=== PATIENT | female | born 1975 | race Caucasian/White ===

== ENCOUNTER → 2018-01-06 08:59 | Outpatient (CLI) | payer OTHER, SELFPAY ==
--- NOTE | 2018-01-06 09:05 | US_ITS ---
STUDY: ULTRASOUND BREAST - RIGHT REASON FOR EXAM: Female, 42 years old. Six-week history of a right breast lump. TECHNIQUE: Axial and longitudinal images of the RIGHT breast were performed with a high resolution ultrasound transducer. COMPARISON: Comparison is made with prior mammogram done earlier in the day. FINDINGS: RIGHT Breast: There is a 1.3 cm x 0.9 cm x 0.5 cm well defined hypoechoic solid nodule at the 4:00 position of the breast at 3 cm from the nipple. This most likely represents a fibroadenoma. Tissue diagnosis is recommended. US/Breast Limited Unilateral IMPRESSION: 1.3 cm x 0.9 cm x 0.5 cm well-defined hypoechoic solid nodule at the 4:00 position of the breast at 3 cm from the nipple. This most likely represents a fibroadenoma. Tissue diagnosis is recommended. ASSESSMENT CATEGORY: BIRADS Category 4: Suspicious - Biopsy Should Be Considered. A letter regarding these results will be sent to the patient by the facility within 30 days. Electronically Signed: Dwight Hendrix MD at 10:41 EDT Tel [phone], Service support ,
--- NOTE | 2018-01-06 09:05 | BI_ITS ---
MAMMOGRAPHY - BILATERAL DIAGNOSTIC REASON FOR EXAM: Female, 42 years old. Six-week history of right breast lump. History of bilateral breast reduction surgery. PERTINENT HISTORY: Non-contributory. TECHNIQUE: Digital bilateral breast malcom (3D mammographic acquisition) in the CC and MLO projections. 2-D mediolateral oblique (MLO) and craniocaudad (CC) views of both breasts were obtained. CAD: Full Field Digital Mammography with Computer Added Detection was performed. COMPARISON: No comparison mammograms available at this time. If any prior films become available, an addendum to this report can be generated. FINDINGS: Breast Composition: There are scattered areas of fibroglandular density. There are no dominant masses or suspicious calcifications. Small benign-appearing bilateral axillary lymph nodes. No other significant abnormalities are identified. BI/DIAG MAMM W/CAD, BILAT IMPRESSION: With the patient's history of a palpable abnormality in the inferior medial aspect of the right breast, correlation with ultrasound is recommended. ASSESSMENT CATEGORY: BIRADS Category 0: Incomplete. Need additional imaging evaluation. A letter regarding these results will be sent to the patient by the facility within 30 days. Approximately 10% of breast cancers are not detected by mammography. A normal mammogram should not delay biopsy of a clinically suspicious abnormality. Electronically Signed: Dwight Hendrix MD at 13:10 EDT Tel [phone], Service support ,
== END ==
PROVIDERS: Visit Provider Obstetrics & Gynecology
DX: N63.10 Unspecified lump in the right breast, unspecified quadrant (principal)
CPT/HCPCS: 76642; 77062; 77066; G0279

== ENCOUNTER → 2018-01-11 14:05 | Outpatient (CLI) | payer OTHER, SELFPAY ==
--- NOTE | 2018-01-11 14:11 | US_ITS ---
STUDY: ULTRASOUND OF THE FEMALE PELVIS - COMPLETE REASON FOR EXAM: Female, 42 years old. Bleeding LMP: 12/23/2017 TECHNIQUE: Transabdominal TECHNICAL QUALITY: Adequate. COMPARISON: None. FINDINGS: The uterus is anteverted and is in a midline position. The uterus measures 12.7 cm. Normal uterine cervix. The endometrium measures 4 mm in thickness, and is hyperechoic. There is no demonstrated endometrial mass. There is no demonstrated myometrial mass. I.U.D. - The patient does not have an I.U.D. The right ovary is visualized. The right ovary measures 2.3 x 1.5 x 1.4 cm. There is no right ovarian cyst or ovarian mass. There is no visualized right adnexal mass or complex lesion. There is normal arterial and normal venous vascularity. The left ovary is visualized. The left ovary measures 3.7 x 2.0 x 1.7 cm. There is no left ovarian cyst or ovarian mass. There is no visualized left adnexal mass or complex lesion. There is normal arterial and normal venous vascularity. There is no fluid in the cul-de-sac. The bladder is sonographically normal US/Pelvic (Non ) IMPRESSION: Normal female pelvis. Electronically Signed: Asif Olvera MD at 15:19 EDT , Service support ,
[2018-01-11 18:46] VITALS: BMI 33.7
== END ==
PROVIDERS: Visit Provider Obstetrics & Gynecology
DX: N93.9 Abnormal uterine and vaginal bleeding, unspecified (principal)
CPT/HCPCS: 76856

== ENCOUNTER 2018-01-11 15:38 | Observation (INO) | payer OTHER, SELFPAY ==
[2018-01-11] VITALS (15 sets, daily range): BP systolic 122–198; BP diastolic 60–103; PULSE 112–141; RESP 16–24; TEMP 36.4–37.2; O2SAT 93–100; BMI 31.4; BMI 33.4
--- NOTE | 2018-01-11 15:57 | EKG12_ITS ---
Test Reason : PALPITATIONS Blood Pressure : / mmHG Vent. Rate : 124 BPM Atrial Rate : 124 BPM P-R Int : 120 ms QRS Dur : 080 ms QT Int : 326 ms P-R-T Axes : 064 025 039 degrees QTc Int : 468 ms Sinus tachycardia Nonspecific ST abnormality Abnormal ECG Confirmed by ESTEFANIA COVINGTON, BOY ([id number]), multimedia editor ENA MARCUS ([id number]) on 01/13/2018 2:15:04 PM Referred By: SHARONDA Confirmed By:BOY MAC MD
--- NOTE | 2018-01-11 15:58 | ED.VISSUMM ---
- ER Visit Summary Date of Service: 01/11/18 Chief Complaint: Elevated heart rate and shortness of breath History of Present Illness: The patient is a [address] Cobos at [facility] She reports that her heart rate is usually 98. States that has been elevated for the past 2 weeks. Today it has been 108, 115, 138. She reports that she has had constant chest pain for the past few weeks. It is a waxing and waning pain. She describes it as throbbing. Is 5 out of 10 currently and 9 out of 10 at worst. It is not worsened by exertion. She also complains of moderate shortness of breath at rest and severe shortness of breath with exertion. Patient and family drove the [place] December 23. She has no personal history of DVT. She does have a family history of DVT. Physical Examination: Vitals: Stable. Afebrile. General: Well-nourished and well-developed. Head: Normocephalic atraumatic. Neck: Supple, no lymphadenopathy. No JVD. Nontender. Cardiovascular: Tachycardic regular rhythm with 2 out of 6 systolic murmur. Respiratory: No respiratory distress. Clear to auscultation bilaterally. Abdominal: Soft, nontender, nondistended, normal bowel sounds. No guarding, rebound, or peritoneal signs. Back: Nontender. Extremities: Nontender, no edema. Skin: Normal color, no rash. Neurologic: Alert and oriented ?3. Cranial nerves II through XII are intact. Normal strength and sensation. Psych: Normal affect. Test Results: EKG is sinus tachycardia [address] changes. She has minimal ST depression inferiorly and leads V3 to V6. There is no old EKG for comparison. CBC is marked for a hematocrit of 19.0. Chem-7 is more for glucose 270, calcium 8.4, creatinine 1.08. D-dimer is negative. test negative. TSH 1.49. Troponin is negative. Emergency Department Course and Treatment: Patient had an IV placed. She is given a liter normal saline. She was given morphine and Zofran IV. She is resting comfortably. Patient was typed and crossed for 4 units of packed red blood cells. When patient's labs returned I spoke with her again about the possibility of bleeding. She has had no trauma, nosebleeds, melena, hematochezia, or hematemesis. Treatment Plan: Patient was discussed with Dr. Damir Castro and with Dr. Mary. She will be admitted to the hospital for further evaluation and treatment. Disposition: Admitted in improved condition. Impression: 1. Anemia. 2. Dysfunctional uterine bleeding. This note was generated with [employer] dictation software. It may contain incorrect words, spelling, and punctuation that were not noted in review of the chart prior to signing ED Disposition - Plan for ED Patient: Chief Complaint: Palpitations Referrals: [facility] Doctor,Out of [Primary Care Provider] -
--- NOTE | 2018-01-11 16:00 | RAD_ITS ---
STUDY: X-RAY CHEST REASON FOR EXAM: Female, 42 years old. Palpitations TECHNIQUE: Single AP portable view of the chest. COMPARISON: None. FINDINGS: The lungs are clear and expanded. There is no demonstrated pleural abnormality. Normal size heart. Normal mediastinum and teresa. Normal visualized pulmonary arteries. Normal visualized aortic arch and descending thoracic aorta. Normal visualized thoracic spine. Normal visualized ribs, clavicles, and shoulders. There is no demonstrated abnormality of the visualized soft tissue structures of the upper abdomen. RAD/Chest 1 View (Portable) IMPRESSION: Normal x-ray examination of the chest. Electronically Signed: Asif Olvera MD at 16:17 EDT , Service support ,
[2018-01-11] MEDS: Ondansetron 4 MG/2 ML Vial IV (16:38)
[2018-01-11] MEDS: Morphine 4 MG/ML Syringe IV (16:38)
[2018-01-11] MEDS: 0.9% Normal Saline 1,000 ML 1000 ML IV (16:38)
[2018-01-11 17:12] LABS: Absolute Lymphocyte Count 1.07 X10^3/ul (0.83-4.51); Basophil# 0.02 X10^3/uL; Basophil% 0.4 % (0-1); Eosinophil# 0.07 X10^3/uL; Eosinophils% 1.6 % (0-5); Lymphocyte # 1.07 X10^3/ul (4.0); Lymphocyte % 23.8 % (19-41); Mean Corp Hgb Conc 25.3 g/gl (32-36); Mean Corpuscular Hgb 15.8 pg (27.0-32.0); Mean Corpuscular Volume 62.7 fL (81-99); Mean Platelet Vol. 9.1 fl (6.2-12.0); Monocyte# 0.32 X10^3/uL; Monocyte% 7.1 % (0-10); Neutrophil # 3.01 X10^3/uL (2.7-7.7); Neutrophil % 67.1 % (47-70); Platelet Count 258 K/mm3 (150-450); RBC Distribution Width CV 20.4 % (11.6-14.6); RBC Distribution Width SD 46.7 fl (35.1-43.9); Red Blood Count 3.03 M/mm3 (4.2-5.4); White Blood Count 4.5 K/mm3 (4.4-11.0)
[2018-01-11 17:14] LABS: Anion Gap 9 (5-15); BUN 11 mg/dL (7-18); BUN/Creat Ratio 10.2 RATIO (10-20); Calcium,Total 8.4 mg/dL (8.5-10.1); Chloride 106 mmol/L (98-107); Creatinine, Serum 1.08 mg/dL (0.55-1.02); EST Glomerular Filtration Rate 59 mL/min (>60); Est Glom Filt Rate - Afr Amer 71 mL/min (>60); Estimated Creatinine Clearance 62.23 ml/min; Glucose 270 mg/dL (74-106); Potassium 3.9 mmol/L (3.5-5.1); Sodium Level 138 mmol/L (136-145); Thyroid Stim Hormone (TSH) 1.49 uIU/mL (0.358-3.74)
[2018-01-11 17:16] LABS: D-Dimer Quantitative (DVT/PE) 0.28 FEU/ug/m (0.27-0.49); Differential Indicated SCAN CRITERIA MET; Hemoglobin 4.8 g/dl (12.0-15.0); POSITIVE COUNT YES; POSITIVE DIFFERENTIAL NO; POSITIVE MORPHOLOGY YES
[2018-01-11 17:23] LABS: Pregnancy, Serum, hCG Quali. NEGATIVE Negative (0-9 Nonpreg)
[2018-01-11 17:43] LABS: Differential Comment SCANNED
--- NOTE | 2018-01-11 18:03 | ED.RN ---
up to bsc. hr increased from 122 to 150's. sob with mnimal activity.
--- NOTE | 2018-01-11 18:12 | PCM.HP.STD ---
Problem List (1) Acute on chronic Symptomatic anemia Status: Acute (2) Iron deficiency anemia Status: Acute (3) Polymenorrhea Status: Acute (4) Hx of tonsillectomy Status: Chronic Comment: 1979 (5) Hx of gastric bypass Status: Chronic Comment: 2009 (6) Weight loss Status: Chronic (7) Lump of right breast Status: Acute (8) Abnormal uterine bleeding Status: Chronic (9) History of ankle surgery Status: Chronic (10) Hx of appendectomy Status: Acute (11) Hx of breast reduction, elective Status: Chronic (12) delivery delivered Status: Chronic (13) Bipolar disorder Status: Chronic (14) hypertension Status: Acute (15) Diabetes Status: Acute History of Present Illness Date of Admission: 01/11/18 Chief Complaint: Symptomatic anemia. The patient is a 42 year old F with history of hypertension and diabetes mellitus type 2 came to ER for feeling palpitation for last 2 weeks. Her heart rate has been 110s and today 138. She also feels palpitations like pounding chest pain. She also has shortness of breath on exertion. Patient has vaginal bleeding after about 2-3 months of her last born. She has irregular vaginal bleeding,, sometimes lasting for 7-10 days and comes frequently in short cycle, 14-21 days. In ED, she was found severely anemic hemoglobin 4.8, hematocrit 19.0. 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 After that her hemoglobin stayed stable and was told to follow-up with PCP Moises. ED physician Dr. Borja also consulted Dr. Villarreal who suggested hospitalist admission and she will do consultationn. [] Past Medical History Past Medical History (Chronic Problems): Chronic Problems (Last Reviewed 01/11/18 @ 13:30 by Christina Langston) Hx of tonsillectomy (Chronic) 1979 Hx of gastric bypass (Chronic) 2010 Weight loss (Chronic) Abnormal uterine bleeding (Chronic) History of ankle surgery (Chronic) Hx of breast reduction, elective (Chronic) delivery delivered (Chronic) Bipolar disorder (Chronic) Medical History: Medical History (Last Reviewed 01/11/18 @ 13:30 by Christina Langston) Bipolar disorder (Acute) F31.9 hypertension (Acute) Diabetes (Acute) E11.9 Allergies ciprofloxacin [From Cipro] Allergy (Verified 01/11/18 15:40) Rash codeine Allergy (Verified 01/11/18 15:40) Anaphylaxis lamotrigine [From Lamictal] Allergy (Verified 01/11/18 15:40) Rash latex Allergy (Verified 01/11/18 15:40) Rash Home Medications: Ambulatory Orders Medication Instructions Recorded Duloxetine Hcl [Cymbalta] 60 mg PO BID 09/30/16 dulaglutide 1.5 mg/0.5 mL 0.75 mg SC QWEEK 01/04/18 subcutaneous pen injector sitagliptin 50 mg tablet 50 mg PO DAILY 01/04/18 Losartan Potassium [Losartan 100 mg PO DAILY 01/11/18 Potassium] Metoprolol Succinate [Toprol Xl] 100 mg PO DAILY 01/11/18 Mirtazapine [Mirtazapine] 30 mg PO QHS 01/11/18 Montelukast [Singulair] 10 mg PO DAILY 01/11/18 Tizanidine HCl [Tizanidine HCl] 4 mg PO PRN PRN 01/11/18 Trazodone HCl [Trazodone HCl] 100 mg PO QHS 01/11/18 aspirin 81 mg tablet,delayed 81 mg PO DAILY 01/11/18 release Surgical History: Surgical History (Last Updated 01/11/18 @ 13:34 by Christina Langston) Hx of tonsillectomy (Acute) Z90.89 1980 Hx of gastric bypass (Acute) Z98.84 2010 History of ankle surgery (Acute) Z98.890 Hx of appendectomy (Acute) Z90.49 Hx of breast reduction, elective (Acute) Z98.890 delivery delivered (Acute) O82 Smoking Status: Never smoker - *Family History Maternal Family History: Family History (Last Reviewed 01/11/18 @ 13:30 by Christina Langston) Mother No problems noted. Father Heart disease CVA (cerebral vascular accident) History Items: No pertinent history Review of Systems Constitutional: Denies: Chills, Fever, Weight Change HEENT: Denies: Head Aches, Sinus Congestion, Sinus Drainage Cardiovascular: Reports: Chest Tightness, Palpitations Respiratory: Reports: Shortness of breath upon exertion. Denies: Cough, Shortness of breath at rest, Sputum production Gastrointestinal: Denies: Abdominal Pain, Nausea, Vomiting Genitourinary: Denies: Dysuria Musculoskeletal: Denies: Joint Pain, Joint Tenderness Skin: Denies: Rash, Wounds Neurological: Denies: Numbness, Tingling, Focal weakness Psychiatric: Denies: Anxiety, Depression, Homicidal Ideations, Suicidal Ideations Hematologic/ Lymphatic: Denies: Easy Bruising, Easy Bleeding VTE Information - Inpt Only VTE Present on Admission: No VTE Mechan Device Prophylaxis: SCD's VTE Pharm Prophylaxis ordered?: No Reason prophylaxis not ordered:: Medical Contraindication Patient Problems: Active and Suspected Problems (Last Reviewed 01/11/18 @ 13:30 by Christina Langston) Acute on chronic Symptomatic anemia (Acute) Iron deficiency anemia (Acute) Polymenorrhea (Acute) - Physical Exam General: Alert, Oriented x3, Cooperative HEENT: Atraumatic, PERRLA, EOMI, Normocephalic Neck: Supple, No JVD, Negative Carotid Bruits Lungs: Clear to auscultation, No rhonchi, No wheeze, No rales, Diminished Cardiovascular: Normal S1, Normal S2, No murmurs, Tachycardic Abdomen: Bowel Sounds Present, Soft, Non Tender, Non-Distended Extremities: No edema, Capillary Refill Less than 3 Seconds Skin: No rashes, No breakdown Musculoskeletal: No Tenderness to Palpation of Joints or Extremities Neurological: Cranial nerves II-XII grossly intact, Neuro grossly intact Psych/Mental Status: Normal Affect, Appropriate Vital Signs Temp Pulse Resp BP Pulse Ox 97.6 F L 120 H 17 149/60 H 97 01/11/18 15:39 01/11/18 18:02 01/11/18 18:02 01/11/18 18:02 01/11/18 18:02 Oxygen Flow Rate (L/min) 2 Oxygen Delivery Method Nasal Cannula Weight: 195 lb Body Mass Index (BMI) 31.4 Laboratory Tests Past 24 Hrs 01/11/18 01/11/18 01/11/18 16:30 16:30 16:30 WBC 4.5 RBC 3.03 L Hgb 4.8 L* Hct 19.0 L MCV 62.7 L MCH 15.8 L MCHC 25.3 L RDW 20.4 H RDW Differential 46.7 H Plt Count 258 MPV 9.1 Immature Gran % (Auto) 0.000 Neut % (Auto) 67.1 Lymph % (Auto) 23.8 [place] % (Auto) 7.1 Eos % (Auto) 1.6 Baso % (Auto) 0.4 Absolute Neuts (auto) 3.0 Absolute Lymphs (auto) 1.07 Total Counted Not Reportable Differential Comment SCANNED D-Dimer Quant (PE/DVT) 0.28 Sodium 138 Potassium 3.9 Chloride 106 Carbon Dioxide 23.0 Anion Gap 9 BUN 11 Creatinine 1.08 H Estim Creat Clear Calc 62.23 Est GFR (MDRD) Af Amer 71 Est GFR (MDRD) Non-Af 59 L BUN/Creatinine Ratio 10.2 Glucose 270 H Calcium 8.4 L Troponin I < 0.015 TSH 1.49 Serum , Qual 01/11/18 16:30 WBC RBC Hgb Hct MCV MCH MCHC RDW RDW Differential Plt Count MPV Immature Gran % (Auto) Neut % (Auto) Lymph % (Auto) [place] % (Auto) Eos % (Auto) Baso % (Auto) Absolute Neuts (auto) Absolute Lymphs (auto) Total Counted Differential Comment D-Dimer Quant (PE/DVT) Sodium Potassium Chloride Carbon Dioxide Anion Gap BUN Creatinine Estim Creat Clear Calc Est GFR (MDRD) Af Amer Est GFR (MDRD) Non-Af BUN/Creatinine Ratio Glucose Calcium Troponin I TSH Serum , Qual NEGATIVE Assessment/Plan All Active Problems (Last Reviewed 01/11/18 @ 13:30 by Christina Langston) Acute on chronic Symptomatic anemia (Acute) Iron deficiency anemia (Acute) Polymenorrhea (Acute) Lump of right breast (Acute) Hx of appendectomy (Acute) hypertension (Acute) Diabetes (Acute) The patient is a 42 year old F with history of hypertension and diabetes mellitus type 2 came to ER for feeling palpitation for last 2 weeks. Her heart rate has been 110s and today 138. She also feels palpitations like pounding chest pain. She also has shortness of breath on exertion. Patient has vaginal bleeding after about 2-3 months of her last born. She has irregular vaginal bleeding,, sometimes lasting for 15-20 days and comes frequently in short cycle, 14-21 days. Her last stool period Was from December 23 - December 31. Currently she denies vaginal bleeding. In ED, she was found severely anemic hemoglobin 4.8, hematocrit 19.0. 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 After that her hemoglobin stayed stable and was told to follow-up with PCP. She had EGD and colonoscopy in 2013 in [facility] and was told normal. ED physician Dr. Borja also consulted Dr. Villarreal who suggested hospitalist admission and she will do consultationn. [] EKG shows sinus tachycardia at 124 bpm. 1. Symptomatic anemia, most probably from vaginal bleeding: Patient is being admitted in PCU. IV fluid normal saline. 2 units of PRBC ordered by ED physician. Posttransfusion CBC. Dr. Villarreal consult. Stool for occult blood. First troponin is negative. At one more troponin after 4 hours. CBC tomorrow a.m. 2. History of type 2 diabetes mellitus : Her A1c last was 5.7. Blood sugar was 270. Accu-Chek before meals and at bedtime and cover with NovoLog sliding scale. She is on long-acting insulin. 3. Hypertension: BP is elevated 198/99, currently 149/60. She states her blood pressure usually controlled. Continue losartan 100 mg daily. Obesity with history of gastric bypass surgery, bipolar disorder: Home medication reconciliation done. DVT prophylaxis: Bilateral SCDs. Pharmacological prophylaxis contraindicated. This note was generated with [employer] dictation software. Every effort was made to ensure accuracy, however computerized rail crew member mistakes may persist. [] []
[2018-01-11] MEDS: DULoxetine Hcl 60 MG Capsule PO (22:09)
[2018-01-11] MEDS: traZODone 100 MG Tablet PO (22:09)
[2018-01-11] MEDS: Glucerna Shake 120 ML LIQUID PO (22:10)
[2018-01-11] MEDS: Mirtazapine 30 MG Tablet PO (22:10)
[2018-01-11] MEDS: 0.9% NaCl Peripheral Flush Adult/Peds IV ×2 (22:11→23:21)
--- NOTE | 2018-01-11 23:00 | EKG12_ITS ---
Test Reason : CP Blood Pressure : / mmHG Vent. Rate : 125 BPM Atrial Rate : 125 BPM P-R Int : 124 ms QRS Dur : 082 ms QT Int : 308 ms P-R-T Axes : 064 032 044 degrees QTc Int : 444 ms Sinus tachycardia Nonspecific ST abnormality Abnormal ECG When compared with ECG of 11-JAN-2018 16:26, MANUAL COMPARISON REQUIRED, DATA IS UNCONFIRMED Confirmed by JOSE COVINGTON, CHIP ([id number]), material expeditor ENA MARCUS ([id number]) on 01/14/2018 2:32:15 PM Referred By: DR LEE Confirmed By:CHIP GARCIA MD
[2018-01-11] MEDS: Ipratropium/Albuterol Sulfate 3 ML AMPUL.NEB INHALATION (23:10)
[2018-01-11 23:11] LABS: Bedside Glucose 208 mg/dL (70-110)
[2018-01-11] MEDS: BENZOCAINE/MENTHOL 1 LOZENGE MUCOUS MEM (23:21)
[2018-01-11] MEDS: Furosemide 20 MG/2 ML VIAL IV (23:21)
[2018-01-12] VITALS (33 sets, daily range): BP systolic 108–163; BP diastolic 58–86; PULSE 92–129; RESP 16–26; TEMP 36.7–37.1; O2SAT 78–100
[2018-01-12] MEDS: tiZANidine HCl 2 MG Tablet 4 MG PO ×2 (03:40→21:01)
[2018-01-12] MEDS: 0.9% NaCl Peripheral Flush Adult/Peds IV ×6 (03:41→20:54)
[2018-01-12] MEDS: Ondansetron 4 MG/2 ML Vial IV (03:41)
[2018-01-12] MEDS: Acetaminophen 325 MG Tablet 650 MG PO ×2 (03:41→09:45)
[2018-01-12] MEDS: Ipratropium/Albuterol Sulfate 3 ML AMPUL.NEB INHALATION ×5 (03:55→19:19)
[2018-01-12 07:16] LABS: Bedside Glucose 187 mg/dL (70-110)
[2018-01-12 07:27] LABS: Absolute Lymphocyte Count 0.62 X10^3/ul (0.83-4.51); Absolute Neutrophil Count 4.1 X10^3/uL (2.0-7.7); Basophil# 0.02 X10^3/uL; Basophil% 0.4 % (0-1); Eosinophil# 0.04 X10^3/uL; Eosinophils% 0.8 % (0-5); Hematocrit 25.1 % (37-47); Lymphocyte # 0.62 X10^3/ul (4.0); Lymphocyte % 12.1 % (19-41); Mean Corp Hgb Conc 27.9 g/gl (32-36); Mean Corpuscular Volume 68.2 fL (81-99); Mean Platelet Vol. 9.1 fl (6.2-12.0); Monocyte# 0.32 X10^3/uL; Monocyte% 6.2 % (0-10); Neutrophil # 4.12 X10^3/uL (2.7-7.7); Neutrophil % 80.3 % (47-70); Platelet Count 261 K/mm3 (150-450); RBC Distribution Width CV 23.9 % (11.6-14.6); RBC Distribution Width SD 57.2 fl (35.1-43.9); Red Blood Count 3.68 M/mm3 (4.2-5.4); White Blood Count 5.1 K/mm3 (4.4-11.0)
[2018-01-12 07:31] LABS: POSITIVE COUNT NO; POSITIVE DIFFERENTIAL NO; POSITIVE MORPHOLOGY YES
[2018-01-12 07:32] LABS: Differential Indicated SCAN CRITERIA MET
--- NOTE | 2018-01-12 08:18 | CT_ITS ---
STUDY: CT BRAIN WITHOUT CONTRAST REASON FOR EXAM: Female, 42 years old. Headaches. Anemia due to abnormal uterine bleeding. RADIATION DOSAGE (If Supplied By Facility): CTDIvol = ( 44.99 ) mGy, DLP = ( 762.36 ) mGycm TECHNIQUE: Transaxial CT imaging of the brain was performed without administration of intravenous contrast material. Individualized dose optimization techniques were used for this CT. COMPARISON: None. FINDINGS: Normal soft tissue structures. Normal calvarium. Normal size ventricles and extra-axial spaces for the patient's age. Normal white matter tracts of the cerebral hemispheres. Normal basal ganglia and thalami. Normal brainstem. Normal cerebellum. There is no intracranial hemorrhage. There are no findings of an acute ischemic infarction. Normal visualized paranasal sinuses. CT/Brain/Head without Contrast IMPRESSION: Normal unenhanced CT scan of the brain. Electronically Signed: Dwight Hendrix MD at 10:50 EDT Tel [phone], Service support ,
--- NOTE | 2018-01-12 08:29 | PCM.CONS.GEN ---
Problem List (1) Acute on chronic Symptomatic anemia Status: Acute (2) Iron deficiency anemia Status: Acute (3) Polymenorrhea Status: Acute (4) Hx of tonsillectomy Status: Chronic Comment: 1979 (5) Hx of gastric bypass Status: Chronic Comment: 2009 (6) Weight loss Status: Chronic (7) Lump of right breast Status: Acute (8) Abnormal uterine bleeding Status: Chronic Reason for Consult Date of Consultation: 01/12/18 History of Present Illness: The patient is a 42 year old F with acute on chronic severe blood loss anemia likely secondary to AUB but she has also had significant GI complaints and a 40 lb weight loss in the last few months. She co bloating, abdominal pain and diarrhea, and also has a nodule in her breast that is planned for biopsy by dr woodard. She has irregular cycles with 10-15 days of bleeding, her LMP was december 23-dec 31. her hg dropped from 10 in october to now 4.8. Past Medical History Past Medical History (Chronic Problems): Chronic Problems (Last Reviewed 01/11/18 @ 13:30 by Christina Langston) Hx of tonsillectomy (Chronic) 1979 Hx of gastric bypass (Chronic) 2009 Weight loss (Chronic) Abnormal uterine bleeding (Chronic) History of ankle surgery (Chronic) Hx of breast reduction, elective (Chronic) delivery delivered (Chronic) Bipolar disorder (Chronic) Medical History: Medical History (Last Reviewed 01/11/18 @ 13:30 by Christina Langston) Bipolar disorder (Chronic) F31.9 hypertension (Acute) Diabetes (Acute) E11.9 Allergies ciprofloxacin [From Cipro] Allergy (Verified 01/11/18 15:40) Rash codeine Allergy (Verified 01/11/18 15:40) Anaphylaxis lamotrigine [From Lamictal] Allergy (Verified 01/11/18 15:40) Rash latex Allergy (Verified 01/11/18 15:40) Rash Home Medications: Ambulatory Orders Medication Instructions Recorded Duloxetine Hcl [Cymbalta] 60 mg PO BID 09/30/16 dulaglutide 1.5 mg/0.5 mL 0.75 mg SC QWEEK 01/04/18 subcutaneous pen injector sitagliptin 50 mg tablet 50 mg PO DAILY 01/04/18 Losartan Potassium [Losartan 100 mg PO DAILY 01/11/18 Potassium] Metoprolol Succinate [Toprol Xl] 100 mg PO DAILY 01/11/18 Mirtazapine [Mirtazapine] 30 mg PO QHS 01/11/18 Montelukast [Singulair] 10 mg PO DAILY 01/11/18 Tizanidine HCl [Tizanidine HCl] 4 mg PO PRN PRN 01/11/18 Trazodone HCl [Trazodone HCl] 100 mg PO QHS 01/11/18 aspirin 81 mg tablet,delayed 81 mg PO DAILY 01/11/18 release Surgical History: Surgical History (Last Updated 01/11/18 @ 13:34 by Christina Langston) Hx of tonsillectomy (Chronic) Z90.89 1980 Hx of gastric bypass (Chronic) Z98.84 2010 History of ankle surgery (Chronic) Z98.890 Hx of appendectomy (Acute) Z90.49 Hx of breast reduction, elective (Chronic) Z98.890 delivery delivered (Chronic) O82 Smoking Status: Never smoker - *Family History Maternal Family History: Family History (Last Reviewed 01/11/18 @ 13:30 by Christina Langston) Mother No problems noted. Father Heart disease CVA (cerebral vascular accident) History Items: No pertinent history Review of Systems Constitutional: Reports: Weight Change HEENT: Reports: Head Aches Cardiovascular: Reports: Chest Pain, Heaviness, Light Headedness Respiratory: Reports: Shortness of Breath Gastrointestinal: Reports: Abdominal Pain, Diarrhea Patient Problems: Active and Suspected Problems (Last Reviewed 01/11/18 @ 13:30 by Christina Langston) Acute on chronic Symptomatic anemia (Acute) Iron deficiency anemia (Acute) Polymenorrhea (Acute) - Physical Exam General: Alert, Oriented x3, Cooperative HEENT: Atraumatic, EOMI, Normocephalic Neck: Supple Lungs: Normal air movement Cardiovascular: Regular rate Abdomen: Soft, Non Tender Extremities: No edema Skin: No rashes, No breakdown Musculoskeletal: No Tenderness to Palpation of Joints or Extremities Psych/Mental Status: Normal Affect, Appropriate Vital Signs Temp Pulse Resp BP Pulse Ox 98.4 F 114 H 16 126/61 H 100 01/12/18 05:58 01/12/18 07:24 01/12/18 07:24 01/12/18 05:58 01/12/18 07:24 Oxygen Flow Rate (L/min) 2 Oxygen Delivery Method Nasal Cannula Weight: 207 lb 3.752 oz Body Mass Index (BMI) 33.4 Intake and Output for Last 24 Hours 01/10/18 01/11/18 01/12/18 23:59 23:59 23:59 Intake Total 2113 1775 / 177 Balance 2113 / 177 Laboratory Tests Past 24 Hrs 01/11/18 01/12/18 21:17 07:18 WBC 5.1 RBC 3.68 L Hgb 7.0 L Hct 25.1 L MCV 68.2 L MCH 19.0 L MCHC 27.9 L RDW 23.9 H RDW Differential 57.2 H Plt Count 261 MPV 9.1 Immature Gran % (Auto) 0.200 Neut % (Auto) 80.3 H Lymph % (Auto) 12.1 L [place] % (Auto) 6.2 Eos % (Auto) 0.8 Baso % (Auto) 0.4 Absolute Neuts (auto) 4.1 Absolute Lymphs (auto) 0.62 L Total Counted Pending Troponin I < 0.015 POC Glucose 01/12/18 01/11/18 06:46 22:06 POC Glucose 187 H 208 H Assessment/Plan All Active Problems (Last Reviewed 01/11/18 @ 13:30 by Christina Langston) Acute on chronic Symptomatic anemia (Acute) Iron deficiency anemia (Acute) Polymenorrhea (Acute) Lump of right breast (Acute) Hx of appendectomy (Acute) hypertension (Acute) Diabetes (Acute) 42 yo with severe anemia acute on chronic blood loss 1. anemia- source likely uterine, will plan fu as OP for planned hysterectomy in future. recommend surgery consult for possible colonoscopy and/or EGD also. will contact dr woodard.
[2018-01-12] MEDS: DULoxetine Hcl 60 MG Capsule PO ×2 (09:45→21:02)
[2018-01-12] MEDS: Metoprolol(XL)Succ 100 MG Tablet PO (09:45)
[2018-01-12] MEDS: LINAGLIPTIN 5 MG TABLET PO (09:46)
[2018-01-12] MEDS: Glucerna Shake 120 ML LIQUID PO ×3 (09:56→17:30)
--- NOTE | 2018-01-12 10:32 | PCM.CONS.GEN ---
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 In office she was quite tachycardic and was on a beta-elaan as well. Strongly encourage patient to go to the ER or urgent care. Patient did present to the ER due to having some more shortness of breath as well as her palpitations. Her hemoglobin was 4.8 in the ER. She was admitted and given 2 units of packed red blood cells currently her hemoglobin is 7. Patient states last time she has had an EGD or colonoscopy was in 2012 at [facility]. Patient does have a history of a gastric bypass (which her significant other is unaware of). Patient does complain of bouts of diarrhea with floating stool unable to ask about the last time she saw her surgeon who did the gastric bypass as her significant other was in the room. Once her significant other left, she did states she does eat fairly healthy and does not eat a lot of fatty foods. She denies any blood in her stool or melena. She does complain of nausea denies any vomiting. Patient does have a history of uterine bleeding during her menstrual cycle which is quite heavy and is irregular. Past Medical History Past Medical History (Chronic Problems): Chronic Problems (Last Reviewed 01/11/18 @ 13:30 by Christina Langston) Hx of tonsillectomy (Chronic) 1979 Hx of gastric bypass (Chronic) 2009 Weight loss (Chronic) Abnormal uterine bleeding (Chronic) History of ankle surgery (Chronic) Hx of breast reduction, elective (Chronic) delivery delivered (Chronic) Bipolar disorder (Chronic) Medical History: Medical History (Last Reviewed 01/11/18 @ 13:30 by Christina Langston) Bipolar disorder (Chronic) F31.9 hypertension (Acute) Diabetes (Acute) E11.9 Allergies ciprofloxacin [From Cipro] Allergy (Verified 01/11/18 15:40) Rash codeine Allergy (Verified 01/11/18 15:40) Anaphylaxis lamotrigine [From Lamictal] Allergy (Verified 01/11/18 15:40) Rash latex Allergy (Verified 01/11/18 15:40) Rash Home Medications: Ambulatory Orders Medication Instructions Recorded Duloxetine Hcl [Cymbalta] 60 mg PO BID 09/30/16 dulaglutide 1.5 mg/0.5 mL 0.75 mg SC QWEEK 01/04/18 subcutaneous pen injector sitagliptin 50 mg tablet 50 mg PO DAILY 01/04/18 Losartan Potassium [Losartan 100 mg PO DAILY 01/11/18 Potassium] Metoprolol Succinate [Toprol Xl] 100 mg PO DAILY 01/11/18 Mirtazapine [Mirtazapine] 30 mg PO QHS 01/11/18 Montelukast [Singulair] 10 mg PO DAILY 01/11/18 Tizanidine HCl [Tizanidine HCl] 4 mg PO PRN PRN 01/11/18 Trazodone HCl [Trazodone HCl] 100 mg PO QHS 01/11/18 aspirin 81 mg tablet,delayed 81 mg PO DAILY 01/11/18 release Surgical History: Surgical History (Last Updated 01/11/18 @ 13:34 by Christina Langston) Hx of tonsillectomy (Chronic) Z90.89 1980 Hx of gastric bypass (Chronic) Z98.84 2010 History of ankle surgery (Chronic) Z98.890 Hx of appendectomy (Acute) Z90.49 Hx of breast reduction, elective (Chronic) Z98.890 delivery delivered (Chronic) O82 Smoking Status: Never smoker - *Family History Maternal Family History: Family History (Last Reviewed 01/11/18 @ 13:30 by Christina Langston) Mother No problems noted. Father Heart disease CVA (cerebral vascular accident) History Items: No pertinent history Patient Problems: Active and Suspected Problems (Last Reviewed 01/11/18 @ 13:30 by Christina Langston) Acute on chronic Symptomatic anemia (Acute) Iron deficiency anemia (Acute) Polymenorrhea (Acute) - Physical Exam General: Alert, Oriented x3, Cooperative, No apparent distress Lungs: Normal air movement Cardiovascular: Tachycardic Abdomen: Soft, Non-Distended, Tender - Mild in the lower abdomen, no peritoneal signs Vital Signs Temp Pulse Resp BP Pulse Ox 98.4 F 110 H 16 126/61 H 100 01/12/18 05:58 01/12/18 09:45 01/12/18 07:24 01/12/18 05:58 01/12/18 07:24 Oxygen Flow Rate (L/min) 2 Oxygen Delivery Method Nasal Cannula Weight: 207 lb 3.752 oz Body Mass Index (BMI) 33.4 Intake and Output for Last 24 Hours 01/10/18 01/11/18 01/12/18 23:59 23:59 23:59 Intake Total 2113 / 1774 Balance 2113 Laboratory Tests Past 24 Hrs 01/11/18 01/12/18 21:17 07:18 WBC 5.1 RBC 3.68 L Hgb 7.0 L Hct 25.1 L MCV 68.2 L MCH 19.0 L MCHC 27.9 L RDW 23.9 H RDW Differential 57.2 H Plt Count 261 MPV 9.1 Immature Gran % (Auto) 0.200 Neut % (Auto) 80.3 H Lymph % (Auto) 12.1 L [place] % (Auto) 6.2 Eos % (Auto) 0.8 Baso % (Auto) 0.4 Absolute Neuts (auto) 4.1 Absolute Lymphs (auto) 0.62 L Total Counted Not Reportable Differential Comment COMMENT Troponin I < 0.015 POC Glucose 01/12/18 01/11/18 06:46 22:06 POC Glucose 187 H 208 H Assessment/Plan All Active Problems (Last Reviewed 01/11/18 @ 13:30 by Christina Langston) Acute on chronic Symptomatic anemia (Acute) Iron deficiency anemia (Acute) Polymenorrhea (Acute) Lump of right breast (Acute) Hx of appendectomy (Acute) hypertension (Acute) Diabetes (Acute) 42-year-old female with anemia, irregular menses 1. Discussed with patient we could do an EGD and colonoscopy to rule out any source of GI bleed. Patient would prefer this to be done while she is in the hospital. Will discuss with endoscopy as far as timing. Addendum: will plan to do an EGD and colonoscopy on at 8 AM. Will start her prep-golytely- tomorrow and have her on only clears tomorrow. I have discussed the above with the patient. I have offered the patient EGD and colonoscopy for evaluation. I have explained the risks/benefits of the procedure and described the procedure. I have discussed the risks with the patient, including but not limited to: infection, bleeding, perforation of the GI tract requiring emergency surgery, inability to complete the procedure, injury to any internal organs, complications of anesthesia, etc. - the patient understands and agrees to proceed. I have answered all the patient's questions to the patient's satisfaction and the patient has no further questions. Iris Sinclair M.D. Pager: [phone] [facility] [address] [place] [address], [address] [place] [address] Office: [phone] Code Visit Inpatient E&M: 02623 Init Hosp L1
--- NOTE | 2018-01-12 10:37 | CON.PCM_ITS ---
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 In office she was quite tachycardic and was on a beta-elana as well. Strongly encourage patient to go to the ER or urgent care. Patient did present to the ER due to having some more shortness of breath as well as her palpitations. Her hemoglobin was 4.8 in the ER. She was admitted and given 2 units of packed red blood cells currently her hemoglobin is 7. Patient states last time she has had an EGD or colonoscopy was in 2012 at [facility]. Patient does have a history of a gastric bypass ( which her significant other is unaware of). Patient does complain of bouts of diarrhea with floating stool unable to ask about the last time she saw her surgeon who did the gastric bypass as her significant other was in the room. Once her significant other left, she did states she does eat fairly healthy and does not eat a lot of fatty foods. She denies any blood in her stool or melena. She does complain of nausea denies any vomiting. Patient does have a history of uterine bleeding during her menstrual cycle which is quite heavy and is irregular. Past Medical History Past Medical History (Chronic Problems): Chronic Problems (Last Reviewed 01/11/18 @ 13:30 by Christina Langston) Hx of tonsillectomy (Chronic) 1979 Hx of gastric bypass (Chronic) 2009 Weight loss (Chronic) Abnormal uterine bleeding (Chronic) History of ankle surgery (Chronic) Hx of breast reduction, elective (Chronic) delivery delivered (Chronic) Bipolar disorder (Chronic) Medical History: Medical History (Last Reviewed 01/11/18 @ 13:30 by Christina Langston) Bipolar disorder (Chronic) F31.9 hypertension (Acute) Diabetes (Acute) E11.9 Allergies ciprofloxacin [From Cipro] Allergy (Verified 01/11/18 15:40) Rash codeine Allergy (Verified 01/11/18 15:40) Anaphylaxis lamotrigine [From Lamictal] Allergy (Verified 01/11/18 15:40) Rash latex Allergy (Verified 01/11/18 15:40) Rash Home Medications: Ambulatory Orders Medication Instructions Recorded Duloxetine Hcl [Cymbalta] 60 mg PO BID 09/30/16 dulaglutide 1.5 mg/0.5 mL 0.75 mg SC QWEEK 01/04/18 subcutaneous pen injector sitagliptin 50 mg tablet 50 mg PO DAILY 01/04/18 Losartan Potassium [Losartan 100 mg PO DAILY 01/11/18 Potassium] Metoprolol Succinate [Toprol Xl] 100 mg PO DAILY 01/11/18 Mirtazapine [Mirtazapine] 30 mg PO QHS 01/11/18 Montelukast [Singulair] 10 mg PO DAILY 01/11/18 Tizanidine HCl [Tizanidine HCl] 4 mg PO PRN PRN 01/11/18 Trazodone HCl [Trazodone HCl] 100 mg PO QHS 01/11/18 aspirin 81 mg tablet,delayed 81 mg PO DAILY 01/11/18 release Surgical History: Surgical History (Last Updated 01/11/18 @ 13:34 by Christina Langston) Hx of tonsillectomy (Chronic) Z90.89 1980 Hx of gastric bypass (Chronic) Z98.84 2010 History of ankle surgery (Chronic) Z98.890 Hx of appendectomy (Acute) Z90.49 Hx of breast reduction, elective (Chronic) Z98.890 delivery delivered (Chronic) O82 Smoking Status: Never smoker - *Family History Maternal Family History: Family History (Last Reviewed 01/11/18 @ 13:30 by Christina Langston) Mother No problems noted. Father Heart disease CVA (cerebral vascular accident) History Items: No pertinent history Patient Problems: Active and Suspected Problems (Last Reviewed 01/11/18 @ 13:30 by Christina Langston) Acute on chronic Symptomatic anemia (Acute) Iron deficiency anemia (Acute) Polymenorrhea (Acute) - Physical Exam General: Alert, Oriented x3, Cooperative, No apparent distress Lungs: Normal air movement Cardiovascular: Tachycardic Abdomen: Soft, Non-Distended, Tender - Mild in the lower abdomen, no peritoneal signs Vital Signs Temp Pulse Resp BP Pulse Ox 98.4 F 110 H 16 126/61 H 100 01/12/18 05:58 01/12/18 09:45 01/12/18 07:24 01/12/18 05:58 01/12/18 07:24 Oxygen Flow Rate (L/min) 2 Oxygen Delivery Method Nasal Cannula Weight: 207 lb 3.752 oz Body Mass Index (BMI) 33.4 Intake and Output for Last 24 Hours 01/10/18 01/11/18 01/12/18 23:59 23:59 23:59 Intake Total 2113 / 1774 Balance 2113 Laboratory Tests Past 24 Hrs 01/11/18 01/12/18 21:17 07:18 WBC 5.1 RBC 3.68 L Hgb 7.0 L Hct 25.1 L MCV 68.2 L MCH 19.0 L MCHC 27.9 L RDW 23.9 H RDW Differential 57.2 H Plt Count 261 MPV 9.1 Immature Gran % (Auto) 0.200 Neut % (Auto) 80.3 H Lymph % (Auto) 12.1 L [place] % (Auto) 6.2 Eos % (Auto) 0.8 Baso % (Auto) 0.4 Absolute Neuts (auto) 4.1 Absolute Lymphs (auto) 0.62 L Total Counted Not Reportable Differential Comment COMMENT Troponin I < 0.015 POC Glucose 01/12/18 01/11/18 06:46 22:06 POC Glucose 187 H 208 H Assessment/Plan All Active Problems (Last Reviewed 01/11/18 @ 13:30 by Christina Langston) Acute on chronic Symptomatic anemia (Acute) Iron deficiency anemia (Acute) Polymenorrhea (Acute) Lump of right breast (Acute) Hx of appendectomy (Acute) hypertension (Acute) Diabetes (Acute) 42-year-old female with anemia, irregular menses 1. Discussed with patient we could do an EGD and colonoscopy to rule out any source of GI bleed. Patient would prefer this to be done while she is in the hospital. Will discuss with endoscopy as far as timing. Addendum: will plan to do an EGD and colonoscopy on at 8 AM. Will start her prep-golytely- tomorrow and have her on only clears tomorrow. I have discussed the above with the patient. I have offered the patient EGD and colonoscopy for evaluation. I have explained the risks/benefits of the procedure and described the procedure. I have discussed the risks with the patient, including but not limited to: infection, bleeding, perforation of the GI tract requiring emergency surgery, inability to complete the procedure, injury to any internal organs, complications of anesthesia, etc. - the patient understands and agrees to proceed. I have answered all the patient's questions to the patient's satisfaction and the patient has no further questions. Iris Sinclair M.D. Pager: [phone] [facility] [address] [place] [address], [address] [place] [address] Office: [phone] Code Visit Inpatient E&M: 65969 Init Hosp L1
[2018-01-12 12:10] LABS: Bedside Glucose 177 mg/dL (70-110)
[2018-01-12] MEDS: Ketorolac 15 MG/ML Vial IV (13:05)
--- NOTE | 2018-01-12 14:04 | PCM.PROGNOTE ---
<Miguelina Koehler - Last Filed: 01/12/18 14:16> Patient Problems: Active and Suspected Problems (Last Reviewed 01/11/18 @ 13:30 by Christina Langston) Acute on chronic Symptomatic anemia (Acute) Iron deficiency anemia (Acute) Polymenorrhea (Acute) Subjective: Patient seen and examined. Feels somewhat improved. Complains of headache. No other complaints. - Physical Exam General: Alert, Oriented x3, Cooperative, No apparent distress HEENT: Atraumatic, PERRLA, EOMI, Normocephalic Neck: Supple, No JVD, Negative Carotid Bruits Lungs: Clear to auscultation, Normal air movement Cardiovascular: Regular Rhythm, Normal S1, Normal S2, No murmurs, Tachycardic Abdomen: Bowel Sounds Present, Soft, Non Tender, Non-Distended, Obese Extremities: No clubbing, No cyanosis, No edema, Capillary Refill Less than 3 Seconds Skin: No rashes, No breakdown Musculoskeletal: No Tenderness to Palpation of Joints or Extremities Neurological: Cranial nerves II-XII grossly intact, Neuro grossly intact Psych/Mental Status: Normal Affect, Appropriate Vital Signs Temp Pulse Resp BP Pulse Ox 98.6 F 102 H 18 146/84 H 95 01/12/18 13:07 01/12/18 13:07 01/12/18 13:07 01/12/18 13:07 01/12/18 13:07 Oxygen Flow Rate (L/min) 2 Oxygen Delivery Method Room Air Weight: 207 lb 3.752 oz Body Mass Index (BMI) 33.4 Intake and Output for Last 24 Hours 01/10/18 01/11/18 01/12/18 23:59 23:59 23:59 Intake Total 2113 / 2113 2215 / 2215 Balance 2113 / 2113 2215 / 2215 Laboratory Tests Past 24 Hrs 01/11/18 01/12/18 21:17 07:18 WBC 5.1 RBC 3.68 L Hgb 7.0 L Hct 25.1 L MCV 68.2 L MCH 19.0 L MCHC 27.9 L RDW 23.9 H RDW Differential 57.2 H Plt Count 261 MPV 9.1 Immature Gran % (Auto) 0.200 Neut % (Auto) 80.3 H Lymph % (Auto) 12.1 L [place] % (Auto) 6.2 Eos % (Auto) 0.8 Baso % (Auto) 0.4 Absolute Neuts (auto) 4.1 Absolute Lymphs (auto) 0.62 L Total Counted Not Reportable Differential Comment COMMENT Troponin I < 0.015 POC Glucose 01/12/18 01/12/18 01/11/18 12:02 06:46 22:06 POC Glucose 177 H 187 H 208 H Medical Necessity - Tobacco Use Smoking Status: Never smoker Assessment/Plan All Active Problems (Last Reviewed 01/11/18 @ 13:30 by Christina Langston) Acute on chronic Symptomatic anemia (Acute) Iron deficiency anemia (Acute) Polymenorrhea (Acute) Lump of right breast (Acute) Hx of appendectomy (Acute) hypertension (Acute) Diabetes (Acute) 1. Acute on chronic blood loss anemia, symptomatic with suspected uterine source-hemoglobin 4.8 on admission. Status post 4 units packed red blood cells transfusion. Repeat CBC in a.m. 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 Surgery evaluation to rule out GI source as well. Check stool for blood. Check iron studies. Patient reports EGD/colonoscopy in 2012 at [facility] which patient reports was normal. Initiate PPI. Unclear if EGD/colonoscopy will be completed this admission or on outpatient basis. If hemoglobin remains stable, feel patient can complete GI workup as outpatient. 2. Acute kidney injury-suspect secondary to #1. Baseline creat 0.6. Creatinine admission 1.08. Trend BMP. 3. Mild sinus tachycardia-secondary to #1. Improved. Continue home metoprolol regimen. 4. Type 2 diabetes mellitus-hold oral regimen. Continue Tradjenta. Accu-Cheks before meals at bedtime and sliding scale insulin. 5. Hypertension-stable, continue home losartan, metoprolol regimen. 6. Depression/bipolar disorder-continue home fluoxetine, tizanidine regimen. DVT prophylaxis-SCDs. This patient was seen by KENY Moralez under the supervision of Dr. Sharma. <Duc Sharma - Last Filed: 01/12/18 17:02> - Physical Exam General: Alert, No apparent distress HEENT: Atraumatic, Normocephalic Neck: No Nodes, Thyroid Normal Size and Texture Lungs: Clear to auscultation, Normal air movement, No rhonchi, No wheeze Cardiovascular: Regular Rhythm, Normal S1, Normal S2, No murmurs Abdomen: Bowel Sounds Present, Soft, Non Tender, Non-Distended Extremities: No edema, No Calf Tenderness Skin: No rashes, No breakdown Psych/Mental Status: Normal Affect, Appropriate Vital Signs Temp Pulse Resp BP Pulse Ox 37.0 C 99 16 146/84 H 94 01/12/18 13:07 01/12/18 15:14 01/12/18 15:06 01/12/18 13:07 01/12/18 15:06 Oxygen Flow Rate (L/min) 2 Oxygen Delivery Method Room Air Weight: 94 kg Body Mass Index (BMI) 33.4 Intake and Output for Last 24 Hours 01/10/18 01/11/18 01/12/18 23:59 23:59 23:59 Intake Total 2113 / 2113 2215 / 2215 Balance 2113 221 / 2214 Laboratory Tests Past 24 Hrs 01/11/18 01/11/18 01/12/18 21:17 21:17 07:18 WBC 5.1 RBC 3.68 L Hgb 7.0 L Hct 25.1 L MCV 68.2 L MCH 19.0 L MCHC 27.9 L RDW 23.9 H RDW Differential 57.2 H Plt Count 261 MPV 9.1 Immature Gran % (Auto) 0.200 Neut % (Auto) 80.3 H Lymph % (Auto) 12.1 L [place] % (Auto) 6.2 Eos % (Auto) 0.8 Baso % (Auto) 0.4 Absolute Neuts (auto) 4.1 Absolute Lymphs (auto) 0.62 L Total Counted Not Reportable Differential Comment COMMENT Iron 13 L TIBC 397 Iron Saturation 3.3 L Ferritin 2 L Troponin I < 0.015 POC Glucose 01/12/18 01/12/18 01/11/18 12:02 06:46 22:06 POC Glucose 177 H 187 H 208 H Assessment/Plan Patient seen and examined independently. Data reviewed. I agree with the above note by the nurse practitioner. 1. Acute on chronic blood loss anemia Improved after 2 units of packed red blood cells Patient be transfused additional units Secondary to menorrhagia: Patient endorses having heavy, irregular periods. Patient denies any hematochezia nor melena We will see if the patient does overnight to make sure she does not have any adverse effects from transfusions 2. Migraine Patient denies ever stating that stated that she qualified it as 8 out of 10 and not 10 out of 10 that was stipulated to me by nursing Exacerbated by anemia but also insomnia Will give the patient's dose of Decadron Patient will be monitored overnight and if hemoglobin remains stable and patient's symptoms are improved for migraine anticipate patient can be discharged on the . I explained to the patient given that she does not have any medication or melena in the seem to be attributable to her menorrhagia that the GI evaluation may need to be done patient basis. I would find it hard to justify her continue to remain in the hospital just await EGD and colon prep for some and that is not the etiology of her anemia. I do not disagree that she needs to have these procedures but they may need to be done on an outpatient basis. Code Visit Inpatient E&M: 84762 Subs Hosp L2
--- NOTE | 2018-01-12 14:16 | PN_ITS ---
<Miguelina Koehler - Last Filed: 01/12/18 14:16> Patient Problems: Active and Suspected Problems (Last Reviewed 01/11/18 @ 13:30 by Christina Langston) Acute on chronic Symptomatic anemia (Acute) Iron deficiency anemia (Acute) Polymenorrhea (Acute) Subjective: Patient seen and examined. Feels somewhat improved. Complains of headache. No other complaints. - Physical Exam General: Alert, Oriented x3, Cooperative, No apparent distress HEENT: Atraumatic, PERRLA, EOMI, Normocephalic Neck: Supple, No JVD, Negative Carotid Bruits Lungs: Clear to auscultation, Normal air movement Cardiovascular: Regular Rhythm, Normal S1, Normal S2, No murmurs, Tachycardic Abdomen: Bowel Sounds Present, Soft, Non Tender, Non-Distended, Obese Extremities: No clubbing, No cyanosis, No edema, Capillary Refill Less than 3 Seconds Skin: No rashes, No breakdown Musculoskeletal: No Tenderness to Palpation of Joints or Extremities Neurological: Cranial nerves II-XII grossly intact, Neuro grossly intact Psych/Mental Status: Normal Affect, Appropriate Vital Signs Temp Pulse Resp BP Pulse Ox 98.6 F 102 H 18 146/84 H 95 01/12/18 13:07 01/12/18 13:07 01/12/18 13:07 01/12/18 13:07 01/12/18 13:07 Oxygen Flow Rate (L/min) 2 Oxygen Delivery Method Room Air Weight: 207 lb 3.752 oz Body Mass Index (BMI) 33.4 Intake and Output for Last 24 Hours 01/10/18 01/11/18 01/12/18 23:59 23:59 23:59 Intake Total 2113 / 2113 2215 / 2215 Balance 2113 / 2113 2215 / 2215 Laboratory Tests Past 24 Hrs 01/11/18 01/12/18 21:17 07:18 WBC 5.1 RBC 3.68 L Hgb 7.0 L Hct 25.1 L MCV 68.2 L MCH 19.0 L MCHC 27.9 L RDW 23.9 H RDW Differential 57.2 H Plt Count 261 MPV 9.1 Immature Gran % (Auto) 0.200 Neut % (Auto) 80.3 H Lymph % (Auto) 12.1 L [place] % (Auto) 6.2 Eos % (Auto) 0.8 Baso % (Auto) 0.4 Absolute Neuts (auto) 4.1 Absolute Lymphs (auto) 0.62 L Total Counted Not Reportable Differential Comment COMMENT Troponin I < 0.015 POC Glucose 01/12/18 01/12/18 01/11/18 12:02 06:46 22:06 POC Glucose 177 H 187 H 208 H Medical Necessity - Tobacco Use Smoking Status: Never smoker Assessment/Plan All Active Problems (Last Reviewed 01/11/18 @ 13:30 by Christina Langston) Acute on chronic Symptomatic anemia (Acute) Iron deficiency anemia (Acute) Polymenorrhea (Acute) Lump of right breast (Acute) Hx of appendectomy (Acute) hypertension (Acute) Diabetes (Acute) 1. Acute on chronic blood loss anemia, symptomatic with suspected uterine source-hemoglobin 4.8 on admission. Status post 4 units packed red blood cells transfusion. Repeat CBC in a.m. OFFICE ASSISTANT RECEPTIONIST and surgery on consult. OFFICE ASSISTANT RECEPTIONIST suspects uterine source and plans for hysterectomy as outpatient in the future due to polymenorrhea. Surgery evaluation to rule out GI source as well. Check stool for blood. Check iron studies. Patient reports EGD/colonoscopy in 2012 at [place] which patient reports was normal. Initiate PPI. Unclear if EGD/ colonoscopy will be completed this admission or on outpatient basis. If hemoglobin remains stable, feel patient can complete GI workup as outpatient. 2. Acute kidney injury-suspect secondary to #1. Baseline creat 0.6. Creatinine admission 1.08. Trend BMP. 3. Mild sinus tachycardia-secondary to #1. Improved. Continue home metoprolol regimen. 4. Type 2 diabetes mellitus-hold oral regimen. Continue Tradjenta. Accu-Cheks before meals at bedtime and sliding scale insulin. 5. Hypertension-stable, continue home losartan, metoprolol regimen. 6. Depression/bipolar disorder-continue home fluoxetine, tizanidine regimen. DVT prophylaxis-SCDs. This patient was seen by KENY Moralez under the supervision of Dr. Sharma. <Duc Sharma - Last Filed: 01/12/18 17:02> - Physical Exam General: Alert, No apparent distress HEENT: Atraumatic, Normocephalic Neck: No Nodes, Thyroid Normal Size and Texture Lungs: Clear to auscultation, Normal air movement, No rhonchi, No wheeze Cardiovascular: Regular Rhythm, Normal S1, Normal S2, No murmurs Abdomen: Bowel Sounds Present, Soft, Non Tender, Non-Distended Extremities: No edema, No Calf Tenderness Skin: No rashes, No breakdown Psych/Mental Status: Normal Affect, Appropriate Vital Signs Temp Pulse Resp BP Pulse Ox 37.0 C 99 16 146/84 H 94 01/12/18 13:07 01/12/18 15:14 01/12/18 15:06 01/12/18 13:07 01/12/18 15:06 Oxygen Flow Rate (L/min) 2 Oxygen Delivery Method Room Air Weight: 94 kg Body Mass Index (BMI) 33.4 Intake and Output for Last 24 Hours 01/10/18 01/11/18 01/12/18 23:59 23:59 23:59 Intake Total 2113 / 2113 2215 / 2215 Balance 2113 221 / 2214 Laboratory Tests Past 24 Hrs 01/11/18 01/11/18 01/12/18 21:17 21:17 07:18 WBC 5.1 RBC 3.68 L Hgb 7.0 L Hct 25.1 L MCV 68.2 L MCH 19.0 L MCHC 27.9 L RDW 23.9 H RDW Differential 57.2 H Plt Count 261 MPV 9.1 Immature Gran % (Auto) 0.200 Neut % (Auto) 80.3 H Lymph % (Auto) 12.1 L [place] % (Auto) 6.2 Eos % (Auto) 0.8 Baso % (Auto) 0.4 Absolute Neuts (auto) 4.1 Absolute Lymphs (auto) 0.62 L Total Counted Not Reportable Differential Comment COMMENT Iron 13 L TIBC 397 Iron Saturation 3.3 L Ferritin 2 L Troponin I < 0.015 POC Glucose 01/12/18 01/12/18 01/11/18 12:02 06:46 22:06 POC Glucose 177 H 187 H 208 H Assessment/Plan Patient seen and examined independently. Data reviewed. I agree with the above note by the nurse practitioner. 1. Acute on chronic blood loss anemia * Improved after 2 units of packed red blood cells * Patient be transfused additional units * Secondary to menorrhagia: Patient endorses having heavy, irregular periods. * Patient denies any hematochezia nor melena * We will see if the patient does overnight to make sure she does not have any adverse effects from transfusions 2. Migraine * Patient denies ever stating that stated that she qualified it as 8 out of 10 and not 10 out of 10 that was stipulated to me by nursing * Exacerbated by anemia but also insomnia * Will give the patient's dose of Decadron Patient will be monitored overnight and if hemoglobin remains stable and patient 's symptoms are improved for migraine anticipate patient can be discharged on the . I explained to the patient given that she does not have any medication or melena in the seem to be attributable to her menorrhagia that the GI evaluation may need to be done patient basis. I would find it hard to justify her continue to remain in the hospital just await EGD and colon prep for some and that is not the etiology of her anemia. I do not disagree that she needs to have these procedures but they may need to be done on an outpatient basis. Code Visit Inpatient E&M: 63841 Subs Hosp L2
[2018-01-12 14:46] LABS: Ferritin 2 ng/mL (8-252); Iron 13 ug/dL (50-170); Iron Binding Capacity,Total 397 ug/dL (250-450); PERCENT IRON SATURATION 3.3 % (15.0-55.0)
--- NOTE | 2018-01-12 15:09 | CHAPLAIN ---
Type of Pastoral Visit _x__ Initial Visit ___ Follow-up Visit ___ On-call Visit ___ General Patient Visit ___ Spiritual Assessment ___ Family Conference ___ Bereavement ___ Rapid Response ___ Code Blue ___ Other (describe below) Pastoral Care Referral From _x__ Patient ___ Family ___ Nurse ___ Physician ___ Manager Fleet ___ [place] Facilitator ___ Other (describe below) Sacrament/Intervention _x__ Active listening ___ Anointing ___ Hoahaoism ___ Bereavement ___ Communion ___ Manjula exploration ___ ___ Life review _x__ Prayer ___ Reconciliation ___ Sacrament of Sick ___ Supportive presence ___ Wedding ___ Other (describe below) Pastoral Comments patient requests call to her zoroastrianism to notify of her admission
[2018-01-12 17:16] LABS: Bedside Glucose 111 mg/dL (70-110)
[2018-01-12] MEDS: DiphenhydrAMINE 25 MG Capsule PO (18:34)
[2018-01-12] MEDS: BENZOCAINE/MENTHOL 1 LOZENGE MUCOUS MEM (20:10)
--- NOTE | 2018-01-12 20:20 | RAD_ITS ---
STUDY: X-RAY CHEST REASON FOR EXAM: Female, 42 years old. Chest pain TECHNIQUE: Frontal view of the chest COMPARISON: 01/11/2018 FINDINGS: There are mild congestive changes noted. The lungs are otherwise clear. There are no pleural effusions. There is no pneumothorax. The heart is mildly enlarged. The visualized osseous structures are within normal limits. RAD/Chest 1 View (Portable) IMPRESSION: Mild cardiomegaly with mild pulmonary vascular congestion. Electronically Signed: Lonnie Lopez, at 21:41 EDT Tel , Service support ,
[2018-01-12] MEDS: Furosemide 40 MG/4 ML Vial IV (20:52)
[2018-01-12] MEDS: Losartan Potassium 100 MG Tablet PO (21:01)
[2018-01-12] MEDS: Pantoprazole Sodium 40 MG Tablet PO (21:01)
[2018-01-12] MEDS: Mirtazapine 30 MG Tablet PO (21:02)
[2018-01-12 22:30] LABS: Bedside Glucose 248 mg/dL (70-110)
[2018-01-13 02:28] VITALS: BMI 33.4
[2018-01-13 02:58] VITALS: PULSE 103
[2018-01-13 04:10] VITALS: BP 149/80; PULSE 105; RESP 20; TEMP 36.7; O2SAT 96
[2018-01-13 06:56] VITALS: PULSE 105
[2018-01-13 07:06] LABS: Bedside Glucose 158 mg/dL (70-110)
[2018-01-13 07:46] LABS: Hemoglobin 9.7 g/dl (12.0-15.0); Mean Corp Hgb Conc 29.4 g/gl (32-36); Mean Corpuscular Hgb 20.8 pg (27.0-32.0); Mean Corpuscular Volume 70.8 fL (81-99); Mean Platelet Vol. 9.1 fl (6.2-12.0); Platelet Count 248 K/mm3 (150-450); RBC Distribution Width CV 25.3 % (11.6-14.6); RBC Distribution Width SD 63.7 fl (35.1-43.9); Red Blood Count 4.66 M/mm3 (4.2-5.4); White Blood Count 6.4 K/mm3 (4.4-11.0)
[2018-01-13 07:51] LABS: Scan Indicated on CBC? Y/N YES- FLAGS NOTED
--- NOTE | 2018-01-13 08:09 | PCM.PROGNOTE ---
Patient Problems: Active and Suspected Problems (Last Reviewed 01/11/18 @ 13:30 by Christina Langston) Acute on chronic Symptomatic anemia (Acute) Iron deficiency anemia (Acute) Polymenorrhea (Acute) Subjective: Brief visit-up in chair. States feeling better. No longer with SOB. No CP. States headaches persists but improved. - Physical Exam General: Alert, Oriented x3 HEENT: Atraumatic, PERRLA, Normocephalic Neck: Supple Skin: - - Skin clear. Face/lips now pink in color Psych/Mental Status: Normal Affect Vital Signs Temp Pulse Resp BP Pulse Ox 98.1 F 105 H 20 H 149/80 H 96 01/13/18 04:10 01/13/18 06:56 01/13/18 04:10 01/13/18 04:10 01/13/18 04:10 Oxygen Flow Rate (L/min) 5 Oxygen Delivery Method Room Air Weight: 207 lb 3.752 oz Body Mass Index (BMI) 33.4 Intake and Output for Last 24 Hours 01/11/18 01/12/18 01/13/18 23:59 23:59 23:59 Intake Total 4 / 4 4270 / 4270 100 / 100 Balance 2114 / 4 4270 / 4270 100 / 100 Microbiology Past 72 Hours 01/12/18 17:45 Stool Occult Blood (LILI) - Final Stool Laboratory Tests Past 24 Hrs 01/11/18 01/12/18 01/13/18 21:17 07:18 06:26 WBC 6.4 RBC 4.66 Hgb 9.7 L Hct 33.0 L MCV 70.8 L MCH 20.8 L MCHC 29.4 L RDW 25.3 H RDW Differential 63.7 H Plt Count 248 MPV 9.1 Total Counted Not Reportable Differential Comment COMMENT Iron 13 L TIBC 397 Iron Saturation 3.3 L Ferritin 2 L POC Glucose 01/13/18 01/12/18 01/12/18 06:47 21:07 17:04 POC Glucose 158 H 248 H 111 H 01/12/18 12:02 POC Glucose 177 H Medical Necessity - Tobacco Use Smoking Status: Never smoker Assessment/Plan All Active Problems (Last Reviewed 01/11/18 @ 13:30 by Christina Langston) Acute on chronic Symptomatic anemia (Acute) Iron deficiency anemia (Acute) Polymenorrhea (Acute) Lump of right breast (Acute) Hx of appendectomy (Acute) hypertension (Acute) Diabetes (Acute) Inpatient day #2 polymenorrhea, anemia: continue care managed per hospitalist and Dr. Maravilla. Unsure if DC today. Has EGD, colonoscopy scheduled for tomorrow. Will arrange for my office nurse to schedule next week with Dr. Villarreal to then arrange for hysterectomy.
[2018-01-13] MEDS: DULoxetine Hcl 60 MG Capsule PO (08:18)
[2018-01-13 08:19] VITALS: PULSE 98
[2018-01-13] MEDS: Montelukast 10 MG Tablet PO (08:19)
[2018-01-13] MEDS: Pantoprazole Sodium 40 MG Tablet PO (08:19)
[2018-01-13] MEDS: Metoprolol(XL)Succ 100 MG Tablet PO (08:19)
[2018-01-13] MEDS: LINAGLIPTIN 5 MG TABLET PO (08:19)
[2018-01-13] MEDS: tiZANidine HCl 2 MG Tablet 4 MG PO (08:21)
--- NOTE | 2018-01-13 09:12 | PCM.PN.SRG ---
Patient Problems: Active and Suspected Problems (Last Reviewed 01/11/18 @ 13:30 by Christina Langston) Acute on chronic Symptomatic anemia (Acute) Iron deficiency anemia (Acute) Polymenorrhea (Acute) Subjective: Patient is feeling better and he will open him up appropriately after the 4 units packed red blood cells - Physical Exam General: Alert, Oriented x3, Cooperative, No apparent distress Lungs: Normal air movement Cardiovascular: Regular rate Abdomen: Soft, Non Tender, Non-Distended Vital Signs Temp Pulse Resp BP Pulse Ox 98.1 F 98 20 H 149/80 H 96 01/13/18 04:10 01/13/18 08:19 01/13/18 04:10 01/13/18 04:10 01/13/18 04:10 Oxygen Flow Rate (L/min) 5 Oxygen Delivery Method Room Air Weight: 207 lb 3.752 oz Body Mass Index (BMI) 33.4 Intake and Output for Last 24 Hours 01/11/18 01/12/18 01/13/18 23:59 23:59 23:59 Intake Total 2113 / 4 4270 / 4270 100 / 100 Balance 2114 / 2114 4270 / 4270 100 / 100 Microbiology Past 72 Hours 01/12/18 17:45 Stool Occult Blood (LILI) - Final Stool Laboratory Tests Past 24 Hrs 01/11/18 01/13/18 21:17 06:26 WBC 6.4 RBC 4.66 Hgb 9.7 L Hct 33.0 L MCV 70.8 L MCH 20.8 L MCHC 29.4 L RDW 25.3 H RDW Differential 63.7 H Plt Count 248 MPV 9.1 Differential Comment Iron 13 L TIBC 397 Iron Saturation 3.3 L Ferritin 2 L POC Glucose 01/13/18 01/12/18 01/12/18 06:47 21:07 17:04 POC Glucose 158 H 248 H 111 H 01/12/18 12:02 POC Glucose 177 H Medical Necessity - Tobacco Use Smoking Status: Never smoker Assessment/Plan All Active Problems (Last Reviewed 01/11/18 @ 13:30 by Christina Langston) Acute on chronic Symptomatic anemia (Acute) Iron deficiency anemia (Acute) Polymenorrhea (Acute) Lump of right breast (Acute) Hx of appendectomy (Acute) hypertension (Acute) Diabetes (Acute) 42-year-old female with anemia, irregular menses 1. Patient is doing well from medical standpoint has no further medical necessity to stay in the hospital. We will plan the EGD and colonoscopy as an outpatient as tomorrow does not work for the patient will change the date to 01/20/2018 for an EGD and colonoscopy. Patient is agreeable with plan will send over the prep sheet for the MiraLAX Dulcolax split prep to the floor. I have discussed the above with the patient. I have offered the patient EGD and colonoscopy for evaluation plan as an outpatient on 01/20/18. I have explained the risks/benefits of the procedure and described the procedure. I have discussed the risks with the patient, including but not limited to: infection, bleeding, perforation of the GI tract requiring emergency surgery, inability to complete the procedure, injury to any internal organs, complications of anesthesia, etc. - the patient understands and agrees to proceed. I have answered all the patient's questions to the patient's satisfaction and the patient has no further questions. Iris Sinclair M.D. Pager: [phone] [facility] [address] [place] [address], [facility], [address] [place] [address] Office: [phone] Code Visit Inpatient E&M: 27641 Init Hosp L1
[2018-01-13 10:10] VITALS: BP 139/77; PULSE 96; RESP 18; TEMP 37; O2SAT 95
--- NOTE | 2018-01-13 10:50 | PCM.DC ---
- Discharge Diagnoses Current Active Problems: Current Active and Chronic Problems (Last Reviewed 01/11/18 @ 13:30 by Christina Langston) Acute on chronic Symptomatic anemia (Acute) Iron deficiency anemia (Acute) Polymenorrhea (Acute) You will use the following diet at home:: Calorie/Carbohydrate Controlled (specify 1200, 1400, etc) Discharge Activity: Return to Normal Activity Call your doctor if you observe: Shortness of breath, Dizziness, Fainting spells, Chest pain Allergies/Adverse Reactions: Allergies ciprofloxacin [From Cipro] Allergy (Verified 01/11/18 15:40) Rash codeine Allergy (Verified 01/11/18 15:40) Anaphylaxis lamotrigine [From Lamictal] Allergy (Verified 01/11/18 15:40) Rash latex Allergy (Verified 01/11/18 15:40) Rash Medications to take at Discharge Duloxetine Hcl [Cymbalta] 60 mg PO BID 09/30/16 dulaglutide 1.5 mg/0.5 mL subcutaneous pen injector 0.75 mg SC QWEEK 01/04/18 sitagliptin 50 mg tablet 50 mg PO DAILY 01/04/18 Losartan Potassium 100 mg PO DAILY 01/11/18 Metoprolol Succinate [Toprol Xl] 100 mg PO DAILY 01/11/18 Mirtazapine 30 mg PO QHS 01/11/18 Montelukast [Singulair] 10 mg PO DAILY 01/11/18 Tizanidine HCl 4 mg PO PRN PRN 01/11/18 Trazodone HCl 100 mg PO QHS 01/11/18 Ferrous Sulfate 325 mg PO BIDCM #60 tab 01/13/18 The following prescriptions were given: Ferrous Sulfate 325 mg PO BIDCM #60 tab Primary Care Physician: [facility] Doctor,Out of [Primary Care Provider] - Please follow up with your Primary Care Physician in: 1 Week Test Results: Test results from this visit will be discussed in further detail at your follow-up appointment, if applicable. Please Follow Up With: Magaly Villarreal MD When: As scheduled next week Please Follow Up With: Iris Sinclair MD - [phone] When: Call to schedule outpatient EGD/Colonoscopy Proposed Discharge Date: 01/13/18
[2018-01-13 10:54] VITALS: PULSE 95
--- NOTE | 2018-01-13 10:54 | DCINST_ITS ---
- Discharge Diagnoses Current Active Problems: Current Active and Chronic Problems (Last Reviewed 01/11/18 @ 13:30 by Christina Langston) Acute on chronic Symptomatic anemia (Acute) Iron deficiency anemia (Acute) Polymenorrhea (Acute) You will use the following diet at home:: Calorie/Carbohydrate Controlled ( specify 1200, 1400, etc) Discharge Activity: Return to Normal Activity Call your doctor if you observe: Shortness of breath, Dizziness, Fainting spells , Chest pain Allergies/Adverse Reactions: Allergies ciprofloxacin [From Cipro] Allergy (Verified 01/11/18 15:40) Rash codeine Allergy (Verified 01/11/18 15:40) Anaphylaxis lamotrigine [From Lamictal] Allergy (Verified 01/11/18 15:40) Rash latex Allergy (Verified 01/11/18 15:40) Rash Medications to take at Discharge Duloxetine Hcl [Cymbalta] 60 mg PO BID 09/30/16 dulaglutide 1.5 mg/0.5 mL subcutaneous pen injector 0.75 mg SC QWEEK 01/04/18 sitagliptin 50 mg tablet 50 mg PO DAILY 01/04/18 Losartan Potassium 100 mg PO DAILY 01/11/18 Metoprolol Succinate [Toprol Xl] 100 mg PO DAILY 01/11/18 Mirtazapine 30 mg PO QHS 01/11/18 Montelukast [Singulair] 10 mg PO DAILY 01/11/18 Tizanidine HCl 4 mg PO PRN PRN 01/11/18 Trazodone HCl 100 mg PO QHS 01/11/18 Ferrous Sulfate 325 mg PO BIDCM #60 tab 01/13/18 The following prescriptions were given: Ferrous Sulfate 325 mg PO BIDCM #60 tab Primary Care Physician: [facility] Doctor,Out of [Primary Care Provider] - Please follow up with your Primary Care Physician in: 1 Week Test Results: Test results from this visit will be discussed in further detail at your follow- up appointment, if applicable. Please Follow Up With: Magaly Villarreal MD When: As scheduled next week Please Follow Up With: Iris Sinclair MD - [phone] When: Call to schedule outpatient EGD/Colonoscopy Proposed Discharge Date: 01/13/18
--- NOTE | 2018-01-13 10:54 | PCM.DC.SUM ---
<Miguelina Koehler - Last Filed: 01/13/18 11:03> Discharge Date and Diagnosis Date of Admission: 01/11/18 Date of Discharge: 01/13/18 - Primary Discharge Diagnosis Active and Suspected Problems (Last Reviewed 01/11/18 @ 13:30 by Christina Langston) 1. Acute on chronic blood loss anemia, symptomatic with suspected uterine source-stool for occult blood negative 2. Acute kidney injury, secondary to #1 3. Sinus tachycardia, mild-resolved. - Secondary Discharge Diagnosis Chronic Problems (Last Reviewed 01/11/18 @ 13:30 by Christina Langston) Hx of tonsillectomy (Chronic) 1979 Hx of gastric bypass (Chronic) 2009 Weight loss (Chronic) Abnormal uterine bleeding (Chronic) History of ankle surgery (Chronic) Hx of breast reduction, elective (Chronic) delivery delivered (Chronic) Bipolar disorder (Chronic) Hospital Course and Treatment Imaging Results: Diagnostic Data Brain CT 01/12/18 08:18 IMPRESSION: Normal unenhanced CT scan of the brain. Electronically Signed: Dwight Hendrix MD at 10:50 EDT Tel [phone], Service support , Chest X-Ray 01/12/18 20:20 IMPRESSION: Mild cardiomegaly with mild pulmonary vascular congestion. Electronically Signed: Lonnie Lopez, at 21:41 EDT Tel , Service support , Dr. Villarreal- POCKET SECRETARY ASSEMBLER Dr. Sinclair- General Surgery Operations: None Procedures: None Summary of Care Provided: The patient is a 42 year old F admitted 01/11/2018 due to symptomatic anemia. 1. Acute on chronic blood loss anemia, symptomatic with suspected uterine source-hemoglobin 4.8 on admission. Status post 4 units packed red blood cells transfusion. Hgb stable. Repeat CBC in 2 days. POCKET SECRETARY ASSEMBLER and surgery on consult. POCKET SECRETARY ASSEMBLER suspects uterine source and plans for hysterectomy as outpatient in the future due to polymenorrhea. Patient has follow-up appointment with POCKET SECRETARY ASSEMBLER next week. Stool negative for occult blood. Patient discharged on iron due to low iron levels. Patient will follow up with Dr. Robotham for EGD colonoscopy as outpatient. 2. Acute kidney injury-suspect secondary to #1. Baseline creat 0.6. Creatinine admission 1.08. 3. Mild sinus tachycardia-secondary to #1. Improved. Continue home metoprolol regimen. 4. Type 2 diabetes mellitus-continue home regimen. 5. Hypertension-stable, continue home losartan, metoprolol regimen. 6. Depression/bipolar disorder-continue home fluoxetine, tizanidine regimen. General: Alert, Oriented x3, Cooperative, No apparent distress HEENT: Atraumatic, PERRLA, EOMI, Normocephalic Neck: Supple, No JVD, Negative Carotid Bruits Lungs: Clear to auscultation, Normal air movement Cardiovascular: Regular Rhythm, regular rate, normal S1, Normal S2, No murmurs Abdomen: Bowel Sounds Present, Soft, Non Tender, Non-Distended, Obese Extremities: No clubbing, No cyanosis, No edema, Capillary Refill Less than 3 Seconds Skin: No rashes, No breakdown Musculoskeletal: No Tenderness to Palpation of Joints or Extremities Neurological: Cranial nerves II-XII grossly intact, Neuro grossly intact Psych/Mental Status: Normal Affect, Appropriate Patient seen exam prior to discharge. Physical assessment as noted above. Patient is stable for discharge home with follow-up her conditions as noted above. This patient was seen by KENY Moralez under the supervision of Dr. Sharma. Discharge Diet: 1800 Calorie Control Diet, Carb Control Diet Discharge Activity: Return to Normal Activity Call your doctor if you observe: Shortness of breath, Dizziness, Fainting spells, Chest pain Home Medications: Medications to take at Discharge Duloxetine Hcl [Cymbalta] 60 mg PO BID 09/30/16 dulaglutide 1.5 mg/0.5 mL subcutaneous pen injector 0.75 mg SC QWEEK 01/04/18 sitagliptin 50 mg tablet 50 mg PO DAILY 01/04/18 Losartan Potassium 100 mg PO DAILY 01/11/18 Metoprolol Succinate [Toprol Xl] 100 mg PO DAILY 01/11/18 Mirtazapine 30 mg PO QHS 01/11/18 Montelukast [Singulair] 10 mg PO DAILY 01/11/18 Tizanidine HCl 4 mg PO PRN PRN 01/11/18 Trazodone HCl 100 mg PO QHS 09/17/18 Ferrous Sulfate 325 mg PO BIDCM #60 tab 01/13/18 Following Prescrptions Were Given to Patient: Ferrous Sulfate 325 mg PO BIDCM #60 tab Primary Care Physician: Mark Pollard,Out of [Primary Care Provider] - Please follow up with your Primary Care Physician in: 1 Week Please Follow Up With: Magaly Villarreal MD When: As scheduled next week Please Follow Up With: Iris Sinclair MD - [phone] When: Call to schedule outpatient EGD/Colonoscopy Disposition: Home Minutes spent on discharge:: 35 Patient Condition:: Stable Medical Necessity - Tobacco Use Smoking Status: Never smoker Meaningful Use Info Meaningful Use Diagnoses (Choose all that apply): None applicable <Duc Sharma - Last Filed: 01/13/18 16:49> Discharge Date and Diagnosis - Secondary Discharge Diagnosis Chronic Problems (Last Reviewed 01/11/18 @ 13:30 by Christina Langston) Hx of tonsillectomy (Chronic) 1979 Hx of gastric bypass (Chronic) 2009 Weight loss (Chronic) Abnormal uterine bleeding (Chronic) History of ankle surgery (Chronic) Hx of breast reduction, elective (Chronic) delivery delivered (Chronic) Bipolar disorder (Chronic) Hospital Course and Treatment Operations: None Procedures: None Summary of Care Provided: Patient seen and examined independently. Data reviewed. I agree with the above note by the nurse practitioner. The patient is a 42 year old F presents with symptomatic anemia. Hemoglobin was 4.8. Patient was transfused total of 4 units of packed red blood cells and patient's hemoglobin went up to 9.7. Patient's bleeding is due to menorrhagia. Patient was seen in consultation by Dr. Villarreal. Dr. Villarreal recommended general surgery consulted Dr. Sinclair. Patient hemoglobin responded well with transfusions. Patient is on ferrous sulfate will continue to do so. Patient will require further hemoglobin monitoring. Patient will need to have an EGD and colonoscopy as outpatient. Those procedures were not necessary on inpatient setting as patient is having no hematemesis, melena nor hematochezia. [] Discharge Diet: 1800 Calorie Control Diet, Carb Control Diet Discharge Activity: Return to Normal Activity Call your doctor if you observe: Shortness of breath, Dizziness, Fainting spells, Chest pain Disposition: Home Minutes spent on discharge:: 35 Patient Condition:: Stable Meaningful Use Info Meaningful Use Diagnoses (Choose all that apply): None applicable Code Visit OBSV E&M: 91726 Observation care discharge
--- NOTE | 2018-01-13 11:03 | DS.PCM_ITS ---
<Miguelina Koehler - Last Filed: 01/13/18 11:03> Discharge Date and Diagnosis Date of Admission: 01/11/18 Date of Discharge: 01/13/18 - Primary Discharge Diagnosis Active and Suspected Problems (Last Reviewed 01/11/18 @ 13:30 by Christina Langston) 1. Acute on chronic blood loss anemia, symptomatic with suspected uterine source-stool for occult blood negative 2. Acute kidney injury, secondary to #1 3. Sinus tachycardia, mild-resolved. - Secondary Discharge Diagnosis Chronic Problems (Last Reviewed 01/11/18 @ 13:30 by Christina Langston) Hx of tonsillectomy (Chronic) 1979 Hx of gastric bypass (Chronic) 2009 Weight loss (Chronic) Abnormal uterine bleeding (Chronic) History of ankle surgery (Chronic) Hx of breast reduction, elective (Chronic) delivery delivered (Chronic) Bipolar disorder (Chronic) Hospital Course and Treatment Imaging Results: Diagnostic Data Brain CT 01/12/18 08:18 IMPRESSION: Normal unenhanced CT scan of the brain. Electronically Signed: Dwight Hendrix MD at 10:50 EDT Tel [phone], Service support , Chest X-Ray 01/12/18 20:20 IMPRESSION: Mild cardiomegaly with mild pulmonary vascular congestion. Electronically Signed: Lonnie Lopez, at 21:41 EDT Tel , Service support , Dr. Villarreal- [employer] Dr. Sinclair- General Surgery Operations: None Procedures: None Summary of Care Provided: The patient is a 42 year old F admitted 01/11/2018 due to symptomatic anemia. 1. Acute on chronic blood loss anemia, symptomatic with suspected uterine source-hemoglobin 4.8 on admission. Status post 4 units packed red blood cells transfusion. Hgb stable. Repeat CBC in 2 days. [employer] and surgery on consult. [employer] suspects uterine source and plans for hysterectomy as outpatient in the future due to polymenorrhea. Patient has follow-up appointment with [employer] next week. Stool negative for occult blood. Patient discharged on iron due to low iron levels. Patient will follow up with Dr. Robotham for EGD colonoscopy as outpatient. 2. Acute kidney injury-suspect secondary to #1. Baseline creat 0.6. Creatinine admission 1.08. 3. Mild sinus tachycardia-secondary to #1. Improved. Continue home metoprolol regimen. 4. Type 2 diabetes mellitus-continue home regimen. 5. Hypertension-stable, continue home losartan, metoprolol regimen. 6. Depression/bipolar disorder-continue home fluoxetine, tizanidine regimen. General: Alert, Oriented x3, Cooperative, No apparent distress HEENT: Atraumatic, PERRLA, EOMI, Normocephalic Neck: Supple, No JVD, Negative Carotid Bruits Lungs: Clear to auscultation, Normal air movement Cardiovascular: Regular Rhythm, regular rate, normal S1, Normal S2, No murmurs Abdomen: Bowel Sounds Present, Soft, Non Tender, Non-Distended, Obese Extremities: No clubbing, No cyanosis, No edema, Capillary Refill Less than 3 Seconds Skin: No rashes, No breakdown Musculoskeletal: No Tenderness to Palpation of Joints or Extremities Neurological: Cranial nerves II-XII grossly intact, Neuro grossly intact Psych/Mental Status: Normal Affect, Appropriate Patient seen exam prior to discharge. Physical assessment as noted above. Patient is stable for discharge home with follow-up her conditions as noted above. This patient was seen by KENY Moralez under the supervision of Dr. Sharma. Discharge Diet: 1800 Calorie Control Diet, Carb Control Diet Discharge Activity: Return to Normal Activity Call your doctor if you observe: Shortness of breath, Dizziness, Fainting spells , Chest pain Home Medications: Medications to take at Discharge Duloxetine Hcl [Cymbalta] 60 mg PO BID 09/30/16 dulaglutide 1.5 mg/0.5 mL subcutaneous pen injector 0.75 mg SC QWEEK 01/04/18 sitagliptin 50 mg tablet 50 mg PO DAILY 01/04/18 Losartan Potassium 100 mg PO DAILY 01/11/18 Metoprolol Succinate [Toprol Xl] 100 mg PO DAILY 01/11/18 Mirtazapine 30 mg PO QHS 01/11/18 Montelukast [Singulair] 10 mg PO DAILY 01/11/18 Tizanidine HCl 4 mg PO PRN PRN 01/11/18 Trazodone HCl 100 mg PO QHS 09/17/18 Ferrous Sulfate 325 mg PO BIDCM #60 tab 01/13/18 Following Prescrptions Were Given to Patient: Ferrous Sulfate 325 mg PO BIDCM #60 tab Primary Care Physician: Mark Pollard,Out of [Primary Care Provider] - Please follow up with your Primary Care Physician in: 1 Week Please Follow Up With: Magaly Villarreal MD When: As scheduled next week Please Follow Up With: Iris Sinclair MD - [phone] When: Call to schedule outpatient EGD/Colonoscopy Disposition: Home Minutes spent on discharge:: 35 Patient Condition:: Stable Medical Necessity - Tobacco Use Smoking Status: Never smoker Meaningful Use Info Meaningful Use Diagnoses (Choose all that apply): None applicable <Duc Sharma - Last Filed: 01/13/18 16:49> Discharge Date and Diagnosis - Secondary Discharge Diagnosis Chronic Problems (Last Reviewed 01/11/18 @ 13:30 by Christina Langston) Hx of tonsillectomy (Chronic) 1979 Hx of gastric bypass (Chronic) 2009 Weight loss (Chronic) Abnormal uterine bleeding (Chronic) History of ankle surgery (Chronic) Hx of breast reduction, elective (Chronic) delivery delivered (Chronic) Bipolar disorder (Chronic) Hospital Course and Treatment Operations: None Procedures: None Summary of Care Provided: Patient seen and examined independently. Data reviewed. I agree with the above note by the nurse practitioner. The patient is a 42 year old F presents with symptomatic anemia. Hemoglobin was 4.8. Patient was transfused total of 4 units of packed red blood cells and patient's hemoglobin went up to 9.7. Patient's bleeding is due to menorrhagia. Patient was seen in consultation by Dr. Villarreal. Dr. Villarreal recommended general surgery consulted Dr. Sinclair. Patient hemoglobin responded well with transfusions. Patient is on ferrous sulfate will continue to do so. Patient will require further hemoglobin monitoring. Patient will need to have an EGD and colonoscopy as outpatient. Those procedures were not necessary on inpatient setting as patient is having no hematemesis, melena nor hematochezia. [] Discharge Diet: 1800 Calorie Control Diet, Carb Control Diet Discharge Activity: Return to Normal Activity Call your doctor if you observe: Shortness of breath, Dizziness, Fainting spells , Chest pain Disposition: Home Minutes spent on discharge:: 35 Patient Condition:: Stable Meaningful Use Info Meaningful Use Diagnoses (Choose all that apply): None applicable Code Visit OBSV E&M: 18643 Observation care discharge
== END 2018-01-13 10:52 | disposition home or self-care (01) ==
LOC: ED 16:43 → PCU 20:14
PROVIDERS: Family Medicine; Nurse Practitioner Family; Admitting Provider Internal Medicine; Emergency Provider Emergency Medicine
DX: D62 Acute posthemorrhagic anemia (principal); D50.0 Iron deficiency anemia secondary to blood loss (chronic); N17.9 Acute kidney failure, unspecified; R00.0 Tachycardia, unspecified; Z98.84 Bariatric surgery status; N93.8 Other specified abnormal uterine and vaginal bleeding; E11.9 Type 2 diabetes mellitus without complications; I10 Essential (primary) hypertension; Z79.899 Other long term (current) drug therapy; F31.9 Bipolar disorder, unspecified; N63.0 Unspecified lump in unspecified breast; R94.31 Abnormal electrocardiogram [ECG] [EKG]
CPT/HCPCS: 36415; 36430; 70450; 71045; 80048; 82274; 82728; 82962; 83540; 83550; 84443; 84484; 84703; 85025; 85027; 85379; 86850; 86900; 86920; 86922; 93005; 94640; 96361; 96365; 96375; 96376; 97802; 99218; 99285; J1756; J7040; P9016; A4216; G0378; J1940; J2405

== ENCOUNTER → 2018-01-16 14:50 | Outpatient (CLI) | payer OTHER, SELFPAY ==
[2018-01-16 15:04] LABS: Hematocrit 34.2 % (37-47)
== END ==
PROVIDERS: Visit Provider Nurse Practitioner Family
DX: D64.9 Anemia, unspecified (principal)
CPT/HCPCS: 36415; 85014; 85018

== ENCOUNTER 2018-01-20 08:01 | Day surgery (SDC) | payer OTHER, SELFPAY ==
[2018-01-20 08:15] VITALS: BP 127/55; PULSE 84; RESP 14; TEMP 36.8; O2SAT 99; BMI 32.3
[2018-01-20 08:41] LABS: Bedside Glucose 112 mg/dL (70-110)
[2018-01-20 10:05] VITALS: BP 126/79; BP 127/55; PULSE 87; RESP 16; TEMP 36.8; O2SAT 99
[2018-01-20 10:10] VITALS: BP 127/55; BP 132/71; PULSE 78; RESP 16; O2SAT 100
--- NOTE | 2018-01-20 10:12 | OP.ENDO_ITS ---
Patient Name: Manisha Jensen Procedure Date: 01/20/2018 9:30 AM Date of : 1975 Age: 42 Procedure: Upper GI endoscopy Indications: Iron deficiency anemia Providers: Iris Sinclair MD Medicines: Monitored Anesthesia Care Patient Profile: Laboratory tests results include iron deficiency anemia, hx of gastric bypass. Complications: No immediate complications. Procedure: Pre-Anesthesia Assessment: - Prior to the procedure, a History and Physical was performed, and patient medications and allergies were reviewed. The patient's tolerance of previous anesthesia was also reviewed. The risks and benefits of the procedure and the sedation options and risks were discussed with the patient. All questions were answered, and informed consent was obtained. Prior Anticoagulants: The patient has taken no previous anticoagulant or antiplatelet agents. ASA Grade Assessment: II - A patient with mild systemic disease. After reviewing the risks and benefits, the patient was deemed in satisfactory condition to undergo the procedure. After obtaining informed consent, the endoscope was passed under direct vision. Throughout the procedure, the patient's blood pressure, pulse, and oxygen saturations were monitored continuously. The gastroscope was introduced through the mouth, and advanced to the jejunum. The upper GI endoscopy was accomplished without difficulty. The patient tolerated the procedure well. Scope In: 9:38:30 AM Scope Out: 9:40:52 AM Total Procedure Duration Time 0 hours 2 minutes 22 seconds Findings: The esophagus was normal. The gastric pouch anastomosis was normal. The examined lary limb of jejunum was normal. Impression: - Normal esophagus. - Normal gastric pouch to lary limb anastomosis. - Normal examined jejunum. - No specimens collected. Recommendation: - Discharge patient to home. - Continue present medications. - Discharge patient to home. Procedure Code(s): --- Professional --- 21974, Esophagogastroduodenoscopy, flexible, transoral; diagnostic, including collection of specimen(s) by brushing or washing, when performed (separate procedure) CPT copyright 2017 [employer]. All rights reserved. The codes documented in this report are preliminary and upon camp tender review may be revised to meet current compliance requirements. MD Iris Mejias MD 01/20/2018 10:12:11 AM This report has been signed electronically. Number of Addenda: 0 Note Initiated On: 01/20/2018 9:30 AM
[2018-01-20 10:15] VITALS: BP 127/55; BP 139/79; PULSE 81; RESP 16; O2SAT 100
--- NOTE | 2018-01-20 10:19 | OP.ENDO_ITS ---
Patient Name: Manisha Jensen Procedure Date: 01/20/2018 9:42 AM Date of : 1975 Age: 42 Procedure: Colonoscopy Indications: Chronic diarrhea, Iron deficiency anemia Providers: Iris Sinclair MD Medicines: Monitored Anesthesia Care Patient Profile: Laboratory tests results include iron deficiency anemia. Last Colonoscopy: 5 years ago. Complications: No immediate complications. Procedure: Pre-Anesthesia Assessment: - Prior to the procedure, a History and Physical was performed, and patient medications and allergies were reviewed. The patient's tolerance of previous anesthesia was also reviewed. The risks and benefits of the procedure and the sedation options and risks were discussed with the patient. All questions were answered, and informed consent was obtained. Prior Anticoagulants: The patient has taken no previous anticoagulant or antiplatelet agents. ASA Grade Assessment: II - A patient with mild systemic disease. After reviewing the risks and benefits, the patient was deemed in satisfactory condition to undergo the procedure. - After I obtained informed consent, the scope was passed under direct vision. Throughout the procedure, the patient's blood pressure, pulse, and oxygen saturations were monitored continuously. The pediatric colonoscope was introduced through the anus and advanced to the cecum, identified by the ileocecal valve. The colonoscopy was performed with difficulty due to poor bowel prep with stool present. The patient tolerated the procedure well. The quality of the bowel preparation was poor. Scope In: 9:44:07 AM Scope Out: 10:02:09 AM Total Procedure Duration Time 0 hours 18 minutes 2 seconds Findings: Very poor visualization due to poor prep and liquid brown stool on all the mucosa, unable to see mucosa well even with irrigation. Unable to clean scope camera due to stool. Impression: - Preparation of the colon was poor, no obvious bleeding seen. - No specimens collected. - The exam was suboptimal due to patient preparation. [All Maneuvers]. Recommendation: - Discharge patient to home. - Continue present medications. - Repeat colonoscopy within 3 months because the bowel preparation was poor. Procedure Code(s): --- Professional --- 57809, Colonoscopy, flexible; diagnostic, including collection of specimen(s) by brushing or washing, when performed (separate procedure) Diagnosis Code(s): --- Professional --- K52.9, Noninfective gastroenteritis and colitis, unspecified D50.9, Iron deficiency anemia, unspecified CPT copyright 2017 [employer]. All rights reserved. The codes documented in this report are preliminary and upon detonator maker review may be revised to meet current compliance requirements. MD Iris Mejias MD 01/20/2018 10:19:10 AM This report has been signed electronically. Number of Addenda: 0 Note Initiated On: 01/20/2018 9:42 AM
[2018-01-20 10:20] VITALS: BP 127/55; BP 140/83; PULSE 82; RESP 16; TEMP 36.8; O2SAT 100
[2018-01-20 10:48] VITALS: BP 127/55
== END 2018-01-20 10:49 | disposition home or self-care (01) ==
LOC: EN 08:02 → AC 08:03
PROVIDERS: Referring Provider Surgery; Visit Provider Surgery
PROC: 0DJD8ZZ Inspection of Lower Intestinal Tract, Via Natural or Artificial Opening Endoscopic (ICD-10-PCS; CPT 45378; principal; 2018-01-20 09:10)
DX: D50.9 Iron deficiency anemia, unspecified (principal); K52.9 Noninfective gastroenteritis and colitis, unspecified; N92.0 Excessive and frequent menstruation with regular cycle; F31.9 Bipolar disorder, unspecified; I10 Essential (primary) hypertension; E11.9 Type 2 diabetes mellitus without complications; G47.33 Obstructive sleep apnea (adult) (pediatric); Z79.84 Long term (current) use of oral hypoglycemic drugs; Z79.899 Other long term (current) drug therapy; Z98.84 Bariatric surgery status; Z86.73 Personal history of transient ischemic attack (TIA), and cerebral infarction without residual deficits
CPT/HCPCS: 43235; 45378; 82962; J7120; J2405

== ENCOUNTER → 2018-01-25 13:15 | Outpatient (CLI) | payer OTHER, SELFPAY ==
--- NOTE | 2018-01-25 | BRBX_PTH ---
PATIENT: JASON MARCUS LOC: [place] U#:[id number] AGE/SX: 49/F ROOM: RE01/25/[address]: Dr. Iris Sinclair MD : 1975 BED: DIS: SPEC #: [id number] RECD: 01/26/18 13:50 STATUS: TERRENCE RODRIGUEZ #: [id number] DAVID: 01/25/18 00:[address]: Iris Sinclair DEPT: SURGICAL PATHOLOGY RECD BY: Asael Brown ENTERED: 01/26/18 13:50 SP TYPE: BREAST BX OT DR: Out of Town Doctor Tissues: Right breast, NOS Procedures: Surgery Specimen Level IV HEADER OPERATION: Right breast core biopsy PRE-OP DIAGNOSIS: Right breast mass TISSUE SUBMITTED: Right breast tissue ISCHEMIC TIME: 2 seconds FIXATION TIME: 30.5 hours MICROSCOPIC DIAGNOSIS Right breast, core biopsy: Fragments of benign fatty breast tissue, no pathologic diagnosis. See comment. SJ:sima 01/27/18 COMMENT Correlation with clinical, radiologic findings and appropriate follow up are necessary. Rebiopsy is suggested if clinically indicated. MICROSCOPIC DESCRIPTION Slides are reviewed. GROSS DESCRIPTION Received in fixative is one container labeled with the patient's name and designated right breast. The specimen consists of multiple elongated fragments of hernandez-yellow fibroadipose tissue that in aggregate measure 2 x 1.5 x 0.1 cm. The entire specimen is submitted in one cassette. / SJ:rg 01/26/18 TC:4 CPT: 61324
== END ==
PROVIDERS: Referring Provider Surgery; Visit Provider Surgery
DX: N63.10 Unspecified lump in the right breast, unspecified quadrant (principal)
CPT/HCPCS: 88305

== ENCOUNTER 2018-01-28 08:36 | Day surgery (SDC) | payer OTHER, SELFPAY ==
[2018-01-27 13:31] VITALS: BP 128/71; PULSE 88; RESP 16; TEMP 37.4; O2SAT 97; BMI 32.6
[2018-01-27 16:15] LABS: Hemoglobin A1c 6.4 % (4.2-6.3); Prothrombin Time (Protime)PT. 13.1 SECONDS (11.7-14.9)
[2018-01-27 16:16] LABS: Partial Thromboplast Time 51.9 Seconds (24.1-36.2)
[2018-01-28] VITALS (10 sets, daily range): BP systolic 110–156; BP diastolic 51–78; PULSE 71–92; RESP 16–18; TEMP 36.6–37.1; O2SAT 97–100; BMI 32.6
--- NOTE | 2018-01-28 | IMM_PTH ---
PATIENT: JASON MARCUS [place] [facility] [place][id number] AGE/SX: 42/F ROOM: RE01/28/[address]: Dr. Magaly Villarreal MD : 1975 BED: DIS: 01/29/2018 SPEC #: [id number] RECD: 02/01/18 12:04 STATUS: LUZMike REQ #: [id number] DAVID: 01/28/18 00:[address]: Magaly Villarreal DEPT: IMMUNOHISTOCHEMISTRY RECD BY: Faiza Simmons ENTERED: 02/01/18 12:06 SP TYPE: IMMUNO OTHR DR: Out of [facility] Doctor Tissues: Uterus, NOS Procedures: Synapto (add) SMA (add) Brian Ret (add) CD56 (add) CHROMO (add) DESMIN (add) MACRO (add) Vimentin (add) SMM (add) Pankeratin (add) ER (initial) NSE (add) S-100 (add) PHYSICIAN & INSTITUTION [address] [address] SPECIMEN INFORMATION: Tissue Source: Uterus Clinical Info: Abnormal uterine bleeding Specimen Number: [id number] #8 CPT code: 59092, 98194 x12 METHODOLOGY: Deparaffinized sections of prefer/formalin-fixed tissue or PAP/DQ stained slides are incubated with monoclonal/polyclonal antibodies/oligonucleotide probes. Localization is made via biotin free immunoperoxidase method. Appropriate controls are performed and reacted as expected. Results on target cell population are indicated in the following table: RESULTS: ANTIBODY / CLONE RESULT Block 8 ER (6F11) positive, >95% AE1-3 (AE1/AE3/PCK26) positive Actin (1A4) positive Vimentin (V9) positive Myosin (simms1) positive Desmin (CE-R-11) positive S-100 (4C4.9) negative CD56 (123C3.D5) positive Chromo (LK2H10) negative Synapto (polyclonal) negative NSE Neuron Specific Enolase negative Macro (HAM-56) negative CALRET (polyclonal) negative These tests were developed and their performance characteristics determined by [facility]. They may not have been cleared or approved by the U.S. Food and Drug Administration. The FDA has determined that such clearance or approval is not necessary. INTERPRETATION: Uterus, left fallopian tube: Consistent with hilus cell hyperplasia. AM:sima 02/02/18 Case has been reviewed in consultation with Dr. Saldivar who concurs with the above diagnosis. IDC:SJ
--- NOTE | 2018-01-28 05:35 | HP.PCM_ITS ---
- Problem List (1) Chronic hypertension Status: Acute (2) Acute on chronic blood loss anemia Status: Acute (3) Iron deficiency anemia Status: Acute Qualifiers: (4) Abnormal uterine bleeding Status: Chronic Comment: plan gypsyh bs cysto, plan Shaka technique for abdominal entry (5) Diabetes Status: Acute History and Physical Date of Admission: 01/28/18 Vital Signs 01/19/18 Height 5 ft 6 in 01/19/18 Weight: 204 lb 2 oz 01/19/18 Body Mass Index (BMI) 32.9 01/19/18 Blood Pressure 133/71 H Intake Visit Reasons: Follow up hospital stay Hotel Service Supervisor Required: No Is patient in pain?: No Allergies ciprofloxacin [From Cipro] Allergy (Verified 01/19/18 17:02) Rash codeine Allergy (Verified 01/19/18 17:02) Anaphylaxis dexamethasone [From Decadron] Allergy (Verified 01/19/18 17:02) Other lamotrigine [From Lamictal] Allergy (Verified 01/19/18 17:02) Rash latex Allergy (Verified 01/19/18 17:02) Rash Medications Duloxetine Hcl [Cymbalta] 60 mg PO BID 09/30/16 [History Confirmed 01/19/18] dulaglutide 1.5 mg/0.5 mL subcutaneous pen injector 1.5 mg SC QWEEK 01/04/18 [History Confirmed 01/19/18] sitagliptin 50 mg tablet 50 mg PO DAILY 01/04/18 [History Confirmed 01/19/18] Losartan Potassium 100 mg PO DAILY 01/11/18 [History Confirmed 01/19/18] Metoprolol Succinate [Toprol Xl] 100 mg PO DAILY 01/11/18 [History Confirmed 01/19/18] Mirtazapine 30 mg PO QHS 01/11/18 [History Confirmed 01/19/18] Montelukast [Singulair] 10 mg PO DAILY 01/11/18 [History Confirmed 01/19/18] Tizanidine HCl 4 mg PO PRN PRN 01/11/18 [History Confirmed 01/19/18] Ferrous Sulfate 325 mg PO BIDCM #60 tab 01/13/18 [Rx Confirmed 01/19/18] multivitamin tablet 1 tab PO DAILY 01/19/18 [History Confirmed 01/19/18] norethindrone acetate 5 mg tablet 5 mg PO DAILY #35 tab 01/21/18 [Rx] Post menopausal: No Patient : No : No PFSH Medical History Bipolar disorder (Chronic) hypertension (Acute) Diabetes (Acute) Surgical History Hx of tonsillectomy (Chronic) Hx of gastric bypass (Chronic) History of ankle surgery (Chronic) Hx of appendectomy (Acute) Hx of breast reduction, elective (Chronic) delivery delivered (Chronic) Family History Mother No problems noted. 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 she has had several very heavy irregular menses the last few cycles and was transfused several untis during her admission for a low hg of 4. she hasn't had any bleeding since, and feel better bt still overall fatigued and uncomfortable. Female Reproductive History Questions: Metorrhagia: Yes Pregancy History 6 Elective abortions Hx Para 3 Spontaneous abortions Hx # Term Pregnancies Ectopic pregnancies Hx # Pregnancies Multiple births # of living children Past Pregnancies Del. Date Name GA/Weeks Outcome Route Bth Weight Gen [facility] F[facility] Unknown 1998 Kamlesh live - full term Unknown 2003 Meet live - full term Unknown 2016 Susan live - full term ROS Const Constitutional: Reports as per HPI and fatigue Cardio Card: Reports system reviewed and no additional complaints, except as docu Resp Resp: Reports shortness of breath with activity and system reviewed and no additional complaints, except as docu GI GI: Reports as per HPI and system reviewed and no additional complaints, except as docu : Reports as per HPI Exam Const General: cooperative, healthy appearing, comfortable, no acute distress, well developed Nutritional Appearance: average body habitus Orientation: alert [facility] Head: normal to inspection, normocephalic Ears: hearing grossly normal bilaterally, external ears normal Nose: external nose normal, nares normal Face and sinus: normal facial exam Neck Neck: normal visual inspection, trachea midline, no lymphadenopathy Thyroid: thyroid normal Resp Effort & Inspection: normal respiratory effort Musc Other: gross motor intact no deficits, full bilateral strength Skin General: no rashes or lesions noted Neuro Motor: muscle tone normal throughout Assessment & Plan Problems 1. Acute on chronic Symptomatic anemia 2. Iron deficiency anemia due to chronic blood loss D50.0 3. Abnormal uterine bleeding N93.9 plan lavh bs cysto, plan Shaka technique for abdominal entry Plan discussed plan for hysterecotmy, plan iron supplement until then, aygestin for breakthrough bleeding. discussed surgical risks including risks of anesthesia, infection, bleeding, injury to bowel, bladder or blood vessels, and patient wishes to proceed with surgery. US FINDINGS: The uterus is anteverted and is in a midline position. The uterus measures 12.7 cm. Normal uterine cervix. The endometrium measures 4 mm in thickness, and is hyperechoic. There is no demonstrated endometrial mass. There is no demonstrated myometrial mass. I.U.D. - The patient does not have an I.U.D. The right ovary is visualized. The right ovary measures 2.3 x 1.5 x 1.4 cm. There is no right ovarian cyst or ovarian mass. There is no visualized right adnexal mass or complex lesion. There is normal arterial and normal venous vascularity. The left ovary is visualized. The left ovary measures 3.7 x 2.0 x 1.7 cm. There is no left ovarian cyst or ovarian mass. There is no visualized left adnexal mass or complex lesion. There is normal arterial and normal venous vascularity. There is no fluid in the cul-de-sac. The bladder is sonographically normal US/Pelvic (Non ) IMPRESSION: Normal female pelvis. UPDATE- I have seen the patient and performed any clinically relevant updates to the history and physical exam. Magaly Villarreal MD
[2018-01-28 09:19] LABS: Internal QC Validated? YES +Cl - CLEAR BKGD; Pregnancy, Urine Negative Negative
[2018-01-28 09:38] LABS: Hematocrit 34.4 % (37-47); Hemoglobin 10.4 g/dl (12.0-15.0); Mean Corp Hgb Conc 30.2 g/gl (32-36); Mean Corpuscular Hgb 22.9 pg (27.0-32.0); Mean Corpuscular Volume 75.8 fL (81-99); Mean Platelet Vol. 9.4 fl (6.2-12.0); Platelet Count 344 K/mm3 (150-450); Red Blood Count 4.54 M/mm3 (4.2-5.4)
[2018-01-28 09:39] LABS: Scan Indicated on CBC? Y/N YES- FLAGS NOTED
[2018-01-28] MEDS: Phenazopyridine 95 MG Tablet 190 MG PO (09:42)
[2018-01-28 09:46] LABS: Bedside Glucose 128 mg/dL (70-110)
[2018-01-28 09:55] LABS: Differential Comment SCANNED
[2018-01-28] MEDS: Lubricating Jelly 60 GM Tube 30 GM TOPICAL (10:11)
--- NOTE | 2018-01-28 10:30 | HYST_PTH ---
PATIENT: JASON MARCUS LOC: [facility] – [place] U#:[id number] AGE/SX: 42/F ROOM: RE01/28/[address]: Dr. Magaly Villarreal MD : 1975 BED: DIS: 01/29/2018 SPEC #: [id number] RECD: 01/29/18 08:31 STATUS: TERRENCE MICHAEL #: [id number] DAVID: 01/28/18 10:[address]: Magaly Villarreal DEPT: SURGICAL PATHOLOGY RECD BY: Shaan Akhtar ENTERED: 01/29/18 11:56 SP TYPE: HYSTERECT OTHR DR: Out of Town Doctor Tissues: Uterus, NOS Procedures: Surgery Specimen Level V HEADER OPERATION: Hysterectomy, lap-assisted vaginal, bilateral salpingectomy PRE-OP DIAGNOSIS: Abnormal uterine bleeding TISSUE SUBMITTED: Uterus, cervix and bilateral fallopian tubes MICROSCOPIC DIAGNOSIS Uterus, hysterectomy: Cervix - nabothian cyst and mild chronic inflammation. Endometrium - proliferative endometrium. Myometrium - focal superficial adenomyosis Right fallopian tube - no pathologic change.. 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 AM:sima 02/01/18 COMMENT Immunohistochemistry ([id number]) supports the above diagnosis. Case has been reviewed in consultation with Dr. Saldivar who concurs with the above diagnosis. IDC:SJ MICROSCOPIC DESCRIPTION Slides are reviewed. GROSS DESCRIPTION Received in fixative is one container labeled with the patient's name and designated uterus, cervix and bilateral fallopian tubes. The specimen consists of a hysterectomy specimen consisting of uterus with cervix and attached bilateral fallopian tubes. The uterus with cervix weighs 101 gm and measures 10 x 7 x 4.5 cm. The serosal surface is hernandez, glistening. The ectocervical mucosa is unremarkable. The external os is circular in contour. The endocervical canal measures 3 cm in length and the endocervical mucosa is hernandez, glistening and unremarkable. Sections of the cervix reveal a few cysts filled with mucoid material. The triangular endometrial cavity measures 6 cm in length and up to 2.5 cm in width. The endometrium is congested, hemorrhagic and measures 0.1 cm in thickness. Sections of the uterine wall do not reveal any mass lesion and measures 2 cm in thickness. The right fallopian tube measures 6.5 cm in length and 0.6 cm in diameter. It is interrupted in the middle consistent with previous tubal ligation. Sections reveal unremarkable cut surfaces. The left fallopian tube is similar appearance to right and measures 6 cm in length and 0.6 cm in diameter. Sample Steamer sections are submitted in eight cassettes as follows: 1 - anterior cervix, 2 - posterior cervix, 3 & 4 - anterior uterine wall, 5 & 6 - posterior uterine wall, 7 - right fallopian tube, 8 - left fallopian tube. / WALKER:sima 01/29/18 TC:1 CPT: 42821
--- NOTE | 2018-01-28 11:58 | PCM.OPRPT ---
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 Patient was taken back to the operating room and placed in the dorsal lithotomy position. General anesthesia was induced and patient was prepped and draped in normal sterile fashion. Uterine manipulator was placed inside the uterus and San catheter placed in the bladder. The umbilicus was grasped with towel clamps and an intraumbilical incision was made after injecting with quarter percent Marcaine and a Veress needle entered into the abdomen confirmed to be intra-abdominal with a low opening pressure. Abdomen was insufflated with CO2 gas and the Veress needle removed and the 5 mm trocar was placed under direct visualization without complication. Right and left lower quadrants were transilluminated and injected with quarter percent Marcaine and 5 mm ports placed under direct visualization. Pelvis was well visualized see operative findings for additional information. Bilateral fallopian tubes were identified and transected with the LigaSure device across the mesosalpinx to the level of the utero-ovarian ligament which was also transected with the LigaSure device. The broad ligament was opened up by transecting the round ligament bilaterally and skeletonizing the uterine vessels bilaterally and creating a bladder flap using the LigaSure device. there were extensive adhesions noted in the vesicouterine area and these were carefully dissected both sharply and bluntly, and by using the monopolar scissors. The uterine arteries were transected bilaterally with good visualization of the bladder and the ureters were seen to be inferior lateral to the operative area. Attention was then paid to the vaginal portion of the procedure and the cervix was grasped with William clamps and circumferentially injected with dilute vasopressin. A circumferential incision was made and the vaginal mucosa was mobilized off posteriorly and the cul-de-sac entered into sharply and a longneck speculum placed. The anterior cul-de-sac was then identified and entered into sharply. The uterosacral ligaments were clamped cut and suture ligated with 0 Monocryl bilaterally followed by the cardinal ligaments which were clamped cut and suture ligated bilaterally with 0 Monocryl. The uterus serially descended and was removed without difficulty with minimal morcellation. Pelvic sidewall pedicles were checked and noted to have excellent hemostasis. The vaginal mucosa was reapproximated incorporating the posterior peritoneum. This was reapproximated using 0 Vicryl [id number] sutures. Excellent hemostasis was noted. The cystoscopy was then performed and bilateral ureteral strong spray was noted and the bladder was noted to have no abnormality or lesions seen. San catheter was replaced and then attention paid to the abdominal portion of the procedure again. The pelvis and cul-de-sac was well visualized and no significant active bleeding noted but some raw areas were seen on the peritoneum and therefore Arash was applied. Pressure was taken down and the areas visualized and noted of excellent hemostasis. All ports were removed under direct visualization without complication and the abdomen was desufflated of air. The instruments removed from the abdomen and the vagina vaginal sweep was negative. Port sites on the abdomen were closed with 4-0 Monocryl interrupted sutures and Steri's and windows were applied. She was awoken and taken recovery in stable condition. Grafts/Implants Used: none - Complications none - Admit VTE Documentation VTE Present on Admission: No VTE Mechan Device Prophylaxis: SCD's
--- NOTE | 2018-01-28 12:06 | DCINST_ITS ---
Discharge Diet: No Restrictions Discharge Activity: Return to Normal Activity, May Not Drive, May Shower May resume sexual activity in: 6-8 weeks Call your doctor if your incision/area has: Continuous Slow Oozing, Sudden Increased Bleeding, Increased Pain/ Swelling, Increased Redness, Foul Smelling Discharge Call your doctor if you observe: Fever of 101 or Higher, Inability to urinate, Inability to have a bowel movement, Using more than one pad per hour Allergies/Adverse Reactions: Allergies ciprofloxacin [From Cipro] Allergy (Verified 01/27/18 13:22) Rash codeine Allergy (Verified 01/27/18 13:22) Anaphylaxis dexamethasone [From Decadron] Allergy (Verified 01/27/18 13:22) Other BODY FELT LIKE IT WAS ON FIRE lamotrigine [From Lamictal] Allergy (Verified 01/27/18 13:22) Rash latex Allergy (Verified 01/27/18 13:22) Rash Medications to take at Discharge Duloxetine Hcl [Cymbalta] 60 mg PO BID 09/30/16 dulaglutide 1.5 mg/0.5 mL subcutaneous pen injector 1.5 mg SC QWEEK 01/04/18 sitagliptin 50 mg tablet 50 mg PO DAILY 01/04/18 Losartan Potassium 100 mg PO DAILY 01/11/18 Metoprolol Succinate [Toprol Xl] 100 mg PO DAILY 01/11/18 Montelukast [Singulair] 10 mg PO PRN PRN 01/11/18 Tizanidine HCl 4 mg PO PRN PRN 01/11/18 Ferrous Sulfate 325 mg PO BIDCM #60 tab 01/13/18 multivitamin tablet 1 tab PO DAILY 01/19/18 Quetiapine Fumarate [Seroquel] 100 mg PO QHS 01/27/18 busPIRone [Buspar] 10 mg PO BID 01/27/18 Ibuprofen [Motrin] 600 mg PO Q6H PRN PRN #30 tablet 01/28/18 Naproxen [Naprosyn] 250 - 500 mg PO Q8H PRN PRN #30 tablet 01/28/18 Oxycodone HCl/Acetaminophen [Percocet 5-325] 1 - 2 tablet PO Q4H PRN PRN 7 Days #28 tablet 01/28/18 The following prescriptions were given: Oxycodone HCl/Acetaminophen [Percocet 5-325] 1 - 2 tablet PO Q4H PRN PRN 7 Days #28 tablet PRN Reason: Moderate-Severe pain Ibuprofen [Motrin] 600 mg PO Q6H PRN PRN #30 tablet PRN Reason: Pain Naproxen [Naprosyn] 250 - 500 mg PO Q8H PRN PRN #30 tablet PRN Reason: MILD PAIN Primary Care Physician: [facility] [address] Doctor,Out of [Primary Care Provider] - Test Results: Test results from this visit will be discussed in further detail at your follow- up appointment, if applicable. Please Follow Up With: Magaly Villarreal MD - [phone]
[2018-01-28] MEDS: Vasopressin 20 UNITS/ML Vial (13:30)
[2018-01-28] MEDS: Bupivacaine Mpf 0.5% 30 ML VIAL (14:20)
[2018-01-28 15:00] LABS: Bedside Glucose 218 mg/dL (70-110)
[2018-01-28] MEDS: busPIRone 5 MG Tablet 10 MG PO (18:08)
[2018-01-28] MEDS: DULoxetine Hcl 60 MG Capsule PO (18:08)
[2018-01-28] MEDS: Ferrous Sulfate 325 MG Tablet PO (18:09)
[2018-01-28] MEDS: Ketorolac 30 MG/ML Syringe IV ×2 (18:10→23:07)
[2018-01-28] MEDS: LINAGLIPTIN 5 MG TABLET PO (18:13)
[2018-01-28] MEDS: Lactated Ringers 1,000 ML 125 ML IV (18:18)
[2018-01-28 18:51] LABS: Bedside Glucose 222 mg/dL (70-110)
[2018-01-28] MEDS: oxyCODONE 5 MG Tablet PO (20:41)
[2018-01-28] MEDS: QUEtiapine 100 MG Tablet PO (23:07)
[2018-01-28 23:26] LABS: Bedside Glucose 201 mg/dL (70-110)
[2018-01-29] MEDS: Lactated Ringers 1,000 ML 125 ML IV (02:20)
[2018-01-29 03:09] VITALS: BP 112/58; PULSE 79; RESP 16; TEMP 36.6; O2SAT 97
[2018-01-29] MEDS: oxyCODONE 5 MG Tablet PO ×2 (03:17→08:34)
[2018-01-29] MEDS: Ketorolac 30 MG/ML Syringe IV (06:43)
[2018-01-29 06:45] LABS: Bedside Glucose 180 mg/dL (70-110)
[2018-01-29 07:20] VITALS: O2SAT 98
[2018-01-29 07:20] LABS: Hematocrit 26.7 % (37-47); Hemoglobin 8.1 g/dl (12.0-15.0); Mean Corp Hgb Conc 30.3 g/gl (32-36); Mean Corpuscular Hgb 23.2 pg (27.0-32.0); Mean Corpuscular Volume 76.5 fL (81-99); Mean Platelet Vol. 9.8 fl (6.2-12.0); Platelet Count 287 K/mm3 (150-450); Red Blood Count 3.49 M/mm3 (4.2-5.4); White Blood Count 4.4 K/mm3 (4.4-11.0)
[2018-01-29 07:37] LABS: Scan Indicated on CBC? Y/N YES- FLAGS NOTED
[2018-01-29 08:24] VITALS: BP 113/50; PULSE 75; RESP 18; TEMP 36.7; O2SAT 98
[2018-01-29 08:34] VITALS: PULSE 75
[2018-01-29] MEDS: LINAGLIPTIN 5 MG TABLET PO (08:34)
[2018-01-29] MEDS: Metoprolol(XL)Succ 100 MG Tablet PO (08:34)
[2018-01-29] MEDS: Multivitamins,Therapeutic Tablet 1 TABLET PO (08:34)
[2018-01-29] MEDS: DULoxetine Hcl 60 MG Capsule PO (08:34)
[2018-01-29] MEDS: busPIRone 5 MG Tablet 10 MG PO (08:34)
--- NOTE | 2018-01-29 20:30 | PCM.PN.OB ---
Subjective: doing well no complaint - Physical Exam Vital Signs Temp Pulse Resp BP Pulse Ox 98.1 F 75 18 113/50 L 98 01/29/18 08:24 01/29/18 08:34 01/29/18 08:24 01/29/18 08:24 01/29/18 08:24 Oxygen Flow Rate (L/min) 2 Oxygen Delivery Method Room Air Weight: 202 lb 6.15 oz Body Mass Index (BMI) 32.6 Finger Stick Blood Glucose 218 Intake and Output for Last 24 Hours 01/27/18 01/28/18 01/29/18 23:59 23:59 23:59 Intake Total 4925 / 4925 1487 / 1487 Output Total 490 / 490 1550 / 1550 Balance 4435 / 4435 -63 / -63 Laboratory Tests Past 24 Hrs 01/29/18 06:50 WBC 4.4 RBC 3.49 L Hgb 8.1 L Hct 26.7 L MCV 76.5 L MCH 23.2 L MCHC 30.3 L RDW Not Reportable RDW Differential Not Reportable Plt Count 287 MPV 9.8 Differential Comment COMMENT POC Glucose 01/29/18 01/28/18 06:36 23:00 POC Glucose 180 H 201 H Medical Necessity - Tobacco Use Smoking Status: Never smoker Assessment/Plan All Active Problems (Last Reviewed 01/25/18 @ 13:01 by Marybeth Gilman) Chronic hypertension (Acute) Acute on chronic blood loss anemia (Acute) Iron deficiency anemia (Acute) Lump of right breast (Acute) Diabetes (Acute) s/p [facility] routine care [facility]
== END 2018-01-29 10:44 | disposition home or self-care (01) ==
LOC: SDC 08:36 → AC 08:37 → MS2 12:14
PROVIDERS: Referring Provider Obstetrics & Gynecology; Visit Provider Obstetrics & Gynecology
PROC: 0UT9FZZ Resection of Uterus, Via Natural or Artificial Opening With Percutaneous Endoscopic Assistance (ICD-10-PCS; CPT 58552; principal; 2018-01-28 10:05)
DX: N93.8 Other specified abnormal uterine and vaginal bleeding (principal); E11.9 Type 2 diabetes mellitus without complications; D50.0 Iron deficiency anemia secondary to blood loss (chronic); D50.9 Iron deficiency anemia, unspecified; D62 Acute posthemorrhagic anemia; I10 Essential (primary) hypertension; N88.8 Other specified noninflammatory disorders of cervix uteri; N80.0 Endometriosis of uterus; Z79.899 Other long term (current) drug therapy; G47.30 Sleep apnea, unspecified
CPT/HCPCS: 58552; 36415; 81025; 82962; 83036; 85027; 85610; 85730; 86850; 86900; 86920; 86922; 88307; 88341; 88342; J7120; J2405

== ENCOUNTER → 2018-02-02 13:52 | Outpatient (CLI) | payer OTHER, SELFPAY ==
[2018-02-02 14:32] LABS: Absolute Neutrophil Count 5.5 X10^3/uL (2.0-7.7); Basophil# 0.03 X10^3/uL; Basophil% 0.4 % (0-1); Eosinophil# 0.19 X10^3/uL; Eosinophils% 2.8 % (0-5); Hematocrit 33.9 % (37-47); Hemoglobin 10.3 g/dl (12.0-15.0); Lymphocyte % 11.7 % (19-41); Mean Corp Hgb Conc 30.4 g/gl (32-36); Mean Corpuscular Hgb 23.3 pg (27.0-32.0); Mean Corpuscular Volume 76.5 fL (81-99); Mean Platelet Vol. 9.3 fl (6.2-12.0); Monocyte# 0.33 X10^3/uL; Monocyte% 4.8 % (0-10); Neutrophil % 80.3 % (47-70); Platelet Count 349 K/mm3 (150-450); Red Blood Count 4.43 M/mm3 (4.2-5.4); White Blood Count 6.9 K/mm3 (4.4-11.0)
[2018-02-02 14:57] LABS: Differential Indicated SCAN CRITERIA MET; POSITIVE COUNT NO; POSITIVE DIFFERENTIAL NO; POSITIVE MORPHOLOGY YES
[2018-02-02 15:08] LABS: Anisocytosis 3+; Hypochromasia 2+
[2018-02-02 15:43] LABS: Thyroid Stim Hormone (TSH) 0.58 uIU/mL (0.358-3.74)
== END ==
PROVIDERS: Obstetrics & Gynecology; Family Provider Internal Medicine; PCP Internal Medicine; Visit Provider Nurse Practitioner Women's Health
DX: N93.9 Abnormal uterine and vaginal bleeding, unspecified (principal); G89.18 Other acute postprocedural pain
CPT/HCPCS: 36415; 84443; 85025

== ENCOUNTER → 2018-02-02 18:16 | Outpatient (CLI) | payer OTHER, SELFPAY | PROVIDERS: Family Provider Internal Medicine; PCP Internal Medicine; Referring Provider Obstetrics & Gynecology; Visit Provider Obstetrics & Gynecology | DX: R30.0 Dysuria (principal) | CPT/HCPCS: 87077; 87086; 87088; 87186 ==

== ENCOUNTER → 2018-02-22 08:05 | Outpatient (CLI) | payer OTHER, SELFPAY ==
--- NOTE | 2018-02-22 08:07 | ECHOD_ITS ---
[id number] ECHO^ECHOD^Echo Complete [id number] TAG_START [facility] Echocardiogram [address] [place], [place] [id number] Ordering Physician: Glory Gallagher TAG_ENDED TAG_START Name: JASON MARCUS I Study Date: 02/22/2018 08:24 AM BP: 158/84 mmHg Patient Location: [facility] BSA: 2.0 m2 : 1975 Gender: Female Height: 66 in Age: 42 yrs Ethnicity: C Weight: 195 lb History: Fam Hx CAD, anemia, Bopolar disorder, HTN, DMII, PTSD TAG_ENDED Reason For Study: HTN Procedure This was a 2D Doppler, Color Flow transthoracic echocardiogram. Exam performed in department. Left Ventricle Mild concentric left ventricular hypertrophy. The estimated ejection fraction is 65 %. Stage 1 diastolic dysfunction. No regional wall motion abnormalities noted. TAG_START I Segments Size 1-2 small X - Cannot 1 - Normal 2 - 3 - Akinetic 4 - Dyskinetic3-5 moderate Interpret Hypokinetic 6-14 large 5 - Aneurysmal 15-16 diffuse TAG_ENDED Right Ventricle Normal size and thickness. Normal systolic function. Atria Normal left atrium. Normal right atrium. Normal atrial septum. Mitral Valve The mitral valve is structurally normal. No prolapse or stenosis seen. Tricuspid Valve Normal tricuspid valve. Unable to estimate RV systolic pressure due to inadequate jet, pulmonary artery pressure probably normal. Aortic Valve Normal aortic valve. Trisinus/trileaflet aortic valve. Pulmonic Valve Normal pulmonic valve. Great Vessels Normal aortic root. Normal arch. Normal inferior vena cava. Inferior vena cava collapse with sniff. Pericardium/Pleural No pericardial effusion. MMode/2D Measurements & Calculations LVIDd: 4.0 cm IVSd: 1.3 cm Ao root diam: 2.9 cm LVIDs: 2.7 cm LVPWd: 1.3 cm LA dimension: 4.0 cm RVDd: 3.4 cm FS: 31.5 % LAV(MOD-bp): 59.9 ml LA A4 area: 20.8 cm2 LA dimension(2D): 4.0 cm LAV(MOD-bp) Indexed: 30.3 ml/m2 LAV(MOD-sp2): 48.9 ml LAV(MOD-sp4): 62.9 ml RA A4 area: 12.3 cm2 Time Measurements MV dec time: 0.21 sec Doppler Measurements & Calculations MV E max gilbert: 74.0 cm/sec Lat Peak E' Gilbert: 8.4 cm/sec Med Peak E' Gilbert: 7.2 cm/sec MV A max gilbert: 101.5 cm/sec E/E' lat: 8.8 E/E' med: 10.3 MV E/A: 0.73 Ao V2 max: 189.0 cm/sec LV V1 max: 136.2 cm/sec PA V2 max: 159.2 cm/sec Ao max P.3 mmHg LV V1 max P.4 mmHg Interpretation Summary Mild concentric left ventricular hypertrophy. The estimated ejection fraction is 65 %. Stage 1 diastolic dysfunction. Unable to estimate RV systolic pressure due to inadequate jet, pulmonary artery pressure probably normal. There is no comparison study available. TAG_START TAG_ENDED Ordering Physician: Glory Gallagher Referring Physician: Glory Gallagher Performed By: Kate Dupont, LEILA, RVT
== END ==
PROVIDERS: Family Provider Internal Medicine; PCP Internal Medicine; Referring Provider Internal Medicine; Visit Provider Internal Medicine
DX: I10 Essential (primary) hypertension (principal); R06.02 Shortness of breath
CPT/HCPCS: 93306

== ENCOUNTER → 2018-02-25 09:46 | Outpatient (CLI) | payer OTHER, SELFPAY ==
--- NOTE | 2018-02-25 09:48 | RAD_ITS ---
STUDY: X-RAY - PELVIS AND LEFT HIP REASON FOR EXAM: Female, 42 years old. Chronic pain. TECHNIQUE: Radiological exam, hip, unilateral, with pelvis when performed; 2 or 3 views. COMPARISON: None. FINDINGS: There is a non-specific bowel gas pattern. Normal visualized soft tissue structures. Normal bilateral iliac wings, sacroiliac joints and visualized sacrum. Normal bilateral superior and inferior pubic rami. Normal pubic symphysis. Normal bilateral ischial tuberosities. There are mild degenerative changes of the hips. RAD/HIP, UNI W/ Pelvis 2-3 Views IMPRESSION: Mild degenerative changes of the hips. Electronically Signed: Ruth Nelson MD at 23:00 EDT Tel , Service support ,
--- NOTE | 2018-02-25 09:48 | RAD_ITS ---
STUDY: X-RAY - LUMBAR SPINE REASON FOR EXAM: Female, 42 years old. Chronic pain. No known injury. TECHNIQUE: 5 view(s) of the lumbar spine were obtained including oblique views. COMPARISON: None FINDINGS: There is straightening of the normal lumbar lordosis. There is no substantial scoliosis. There is a normal alignment of the vertebrae. There is multilevel endplate spondylosis of the lumbar vertebrae. Normal disc space heights. The soft tissue structures are unremarkable. RAD/L/S Spine Min 4 Views IMPRESSION: Degenerative changes of the spine, as detailed above. Electronically Signed: Dwight Hendrix MD at 8:28 EDT Tel [phone], Service support ,
== END ==
PROVIDERS: Family Provider Internal Medicine; PCP Internal Medicine; Referring Provider Physician Assistant; Visit Provider Physician Assistant
DX: M16.0 Bilateral primary osteoarthritis of hip (principal); M47.896 Other spondylosis, lumbar region
CPT/HCPCS: 72110; 73502

== ENCOUNTER → 2018-03-01 10:54 | Outpatient (CLI) | payer OTHER, SELFPAY ==
[2018-03-01 11:19] LABS: Absolute Lymphocyte Count 1.35 X10^3/ul (0.83-4.51); Absolute Neutrophil Count 4.3 X10^3/uL (2.0-7.7); Basophil# 0.03 X10^3/uL; Basophil% 0.5 % (0-1); Eosinophil# 0.22 X10^3/uL; Eosinophils% 3.4 % (0-5); Hematocrit 35.9 % (37-47); Hemoglobin 11.1 g/dl (12.0-15.0); Lymphocyte # 1.35 X10^3/ul (4.0); Lymphocyte % 21.1 % (19-41); Mean Corp Hgb Conc 30.9 g/gl (32-36); Mean Corpuscular Hgb 25.3 pg (27.0-32.0); Mean Platelet Vol. 9.2 fl (6.2-12.0); Monocyte# 0.53 X10^3/uL; Monocyte% 8.3 % (0-10); Neutrophil # 4.25 X10^3/uL (2.7-7.7); Neutrophil % 66.5 % (47-70); Platelet Count 273 K/mm3 (150-450); RBC Distribution Width CV 19.6 % (11.6-14.6); RBC Distribution Width SD 59.2 fl (35.1-43.9); Red Blood Count 4.38 M/mm3 (4.2-5.4); White Blood Count 6.4 K/mm3 (4.4-11.0)
[2018-03-01 11:23] LABS: POSITIVE COUNT NO; POSITIVE DIFFERENTIAL NO; POSITIVE MORPHOLOGY NO
== END ==
PROVIDERS: Family Provider Internal Medicine; PCP Internal Medicine; Referring Provider Nurse Practitioner Women's Health; Visit Provider Nurse Practitioner Women's Health
DX: D50.9 Iron deficiency anemia, unspecified (principal)
CPT/HCPCS: 36415; 85025

== ENCOUNTER → 2018-05-19 12:07 | Outpatient (CLI) | payer OTHER, SELFPAY ==
[2018-05-19 10:19] VITALS: BMI 32.9
[2018-05-19 12:20] LABS: Bacteria 0 SEEN /hpf (None Seen); Mucous, Urine 0 SEEN /hpf (<or=2+); Squamous Epithelial Cells - UA 0 SEEN /hpf (5-10)
[2018-05-19 13:02] LABS: Color, Urine Yellow (Yellow); Glucose, Dipstick 100 mg/dl (Normal); Ketone-Dipstick Negative (Negative); Leukocyte Esterase-Dipstick 500 /ul (Negative); Nitrite-Dipstick Negative (Negative); Occult Blood-Urine 10 /ul (Negative); Protein-Dipstick Negative (Negative); Specific Gravity, Urine 1.005 (1.002-1.030); Urine Bilirubin Dipstick Negative (Negative); Urine Clarity Clear (Clear); Urine Urobilinogen Normal (Normal); Urine pH 6.5 (5.0 - 8.0)
[2018-05-19 13:22] LABS: Red Blood Cells-Urine 0-5 SEEN /hpf (0-5); White Blood Cells 10-25 SEEN /hpf (0-5)
--- OUTSIDE RECORDS SUMMARY | 2018-07-21 10:09 | XMS RPT_ITS ---
:1975 Author Organization [place] Support Name Relationship Address Phone CHASE MARCUS Unavailable [address] + [place], [place] [id number] [place] [address] + [place] [address] CHASE MARCUS Unavailable [address] + [place], [place] [id number] [place] [address] + [place] [address] NOT GIVEN Unavailable Unavailable Unavailable [employer] Unavailable [address] + [place] [address] CHASE MARCUS Unavailable [address] + [place] [address] [employer] Unavailable [address] + [place] [address] CHASE MARCUS Unavailable [address] + [place] [address] [employer] Unavailable [address] + [place] [address] CHASE MARCUS Unavailable [address] + [place] [address] [employer] [employer] Unavailable [address] + [place] [address] CHASE MARCUS Unavailable [address] + [place] [address] [employer] [employer] Unavailable [address] + [place] [address] CHASE MARCUS Unavailable [address] + [place] [address] [employer] Unavailable [address] + [place] [address] MARCUS, CHASE Unavailable [address] + [place] [address] [employer] Unavailable [address] + [place] [address] MARCUS, CHASE Unavailable [address] + [place] [address] [employer] [employer] Unavailable [address] + [place] [address] MARCUS, CHASE Unavailable [address] + [place] [address] [employer] Unavailable [address] + [place] [address] MARCUS, CHASE Unavailable [address] + [place] [address] [employer] Unavailable [address] + [place] [address] MARCUS, CHASE Unavailable [address] + [place] [address] [employer] Unavailable [address] + [place] [address] MARCUS, CHASE Unavailable [address] + [place] [address] [employer] [employer] Unavailable [address] + [place] [address] MARCUS, CHASE Unavailable [address] + [place] [address] [employer] [employer] Unavailable [address] + [place] [address] MARCUS, CHASE Unavailable [address] + [place] [address] [employer] [employer] Unavailable [address] + [place] [address] MARCUS, CHASE Unavailable [address] + [place] [address] [employer] [employer] Unavailable [address] + [place] [address] MARCUS, CHASE Unavailable [address] + [place] [address] [employer] Unavailable [address] + [place] [address] MARCUS, CHASE Unavailable [address] + [place] [address] [employer] [employer] Unavailable [address] + [place] [address] MARCUS, CHASE Unavailable [address] + [place] [address] [facility] [employer] Unavailable [address] + [place] [address] MARCUS, CHASE Unavailable [address] + [place] [address] [employer] [employer] Unavailable [address] + [place] [address] MARCUS, CHASE Unavailable [address] + [place] [address] [facility] [employer] Unavailable [address] + [place] [address] MARCUS, CHASE Unavailable [address] + [place] [address] [employer] [employer] Unavailable [address] + [place] [address] MARCUS, CHASE Unavailable [address] + [place] [address] [employer] [employer] Unavailable [address] + [place] [address] MARCUS, CHASE Unavailable [address] + [place] [address] [facility] Unavailable [address] + [place] [address] MARCUS, CHASE Unavailable [address] + [place] [address] [facility] [employer] Unavailable [address] + [place] [address] MARCUS, CHASE Unavailable [address] + [place] [address] [employer] [employer] Unavailable [address] + [place] [address] MARCUS, CHASE Unavailable [address] + [place] [address] [employer] Unavailable [address] + [place] [address] MARCUS, CHASE Unavailable [address] + [place] [address] [employer] [employer] Unavailable [address] + [place] [address] MARCUS, CHASE Unavailable [address] + [place] [address] [employer] [employer] Unavailable [address] + [place] [address] MARCUS, CHASE Unavailable [address] + [place] [address] [employer] Unavailable [address] + [place] [address] MARCUS, CHASE Unavailable [address] + [place] [address] [employer] [employer] Unavailable [address] + [place] [address] MARCUS, CHASE Unavailable [address] + [place] [address] [employer] [employer] Unavailable [address] + [place] [address] MARCUS, CHASE Unavailable [address] + [place] [address] [employer] [employer] Unavailable [address] + [place] [address] MARCUS, CHASE Unavailable [address] + [place] [address] [employer] [employer] Unavailable [address] + [place] [address] MARCUS, CHASE Unavailable [address] + [place] [address] [employer] [employer] Unavailable [address] + [place] [address] MARCUS, CHASE Unavailable [address] + [place] [address] MARCUS, CHASE Unavailable [address] + [place] [address] UE Unavailable Unavailable Unavailable MARCUS, CHASE Unavailable [address] + [place] [address] UE Unavailable Unavailable Unavailable MARCUS, CHASE Unavailable [address] + [place] [address] UE Unavailable Unavailable Unavailable CHASE MARCUS Unavailable [address] [facility] + [place] [address] UE Unavailable Unavailable Unavailable UE Unavailable Unavailable Unavailable CHASE MARCUS Unavailable [address] [facility] [address] + [place] [address] [facility] Unavailable [address] [facility] [address] + [place] [address] UE Unavailable Unavailable Unavailable Care Team Providers Name Role Phone Uriah Gallardo Attending Unavailable Uriah Gallardo Referring Unavailable Olekevine Glory Primary Care Unavailable Marcanthony, Magaly Attending Unavailable Primay Care Physicia, No Referring Unavailable Primay Care Physicia, No Primary Care Unavailable Marcanthony, Magaly Attending Unavailable Primay Care Physicia, No Primary Care Unavailable Robotham, Iris Attending Unavailable Marcanthony, Magaly Referring Unavailable Primay Care Physicia, No Primary Care Unavailable Marcanthony, Magaly Attending Unavailable Marcanthony, Magaly Referring Unavailable MANISHA SCHWARZ Primary Care Unavailable MANISHA SCHWARZ Primary Care Unavailable Marcanthony, Magaly Consulting Unavailable Usman, Bernard Admitting Unavailable Jopperi, Duc Attending Unavailable Robotham, Iris Consulting Unavailable Damir Solis VACUUM REPAIRER-C Attending Unavailable Damir Solis VACUUM REPAIRER-C Referring Unavailable Usman, Bernard Attending Unavailable MANISHA SCHWARZ Primary Care Unavailable Marcanthony, Magaly Consulting Unavailable Usman, Bernard Admitting Unavailable Robotham, Iris Attending Unavailable MANISHA SCHWARZ Primary Care Unavailable Marcanthony, Magaly Consulting Unavailable Robotham, Iris Consulting Unavailable Jopperi, Duc Consulting Unavailable Usman, Bernard Admitting Unavailable MANISHA SCHWARZ Primary Care Unavailable Marcanthony, Magaly Consulting Unavailable Jopperi, Duc Attending Unavailable Robotham, Iris Consulting Unavailable Jopperi, Duc Consulting Unavailable Usman, Bernard Admitting Unavailable Deirdre Li Attending Unavailable MANISHA SCHWARZ Primary Care Unavailable Marcanthony, Magaly Consulting Unavailable Robotham, Iris Consulting Unavailable Jopperi, Duc Consulting Unavailable Usman, Bernard Admitting Unavailable Robotham, Iris Attending Unavailable MANISHA SCHWARZ Primary Care Unavailable Marcanthony, Magaly Consulting Unavailable Robotham, Iris Consulting Unavailable Jopperi, Duc Consulting Unavailable Robotham, Iris Attending Unavailable Robotham, Iris Referring Unavailable MANISHA SCHWARZ Primary Care Unavailable Jopperi, Duc Attending Unavailable Miguelina Koehler VACUUM REPAIRER-C Attending Unavailable MANISHA SCHWARZ Primary Care Unavailable Marcanthony, Magaly Attending Unavailable Primay Care Physicia, No Referring Unavailable Marcanthony, Magaly Attending Unavailable DOCTOR, OUT OF TOWN Referring Unavailable Robotham, Iris Attending Unavailable Robotham, Iris Referring Unavailable MANISHA SCHWARZ Primary Care Unavailable Marcanthony, Magaly Attending Unavailable Marcanthony, Magaly Referring Unavailable MANISHA SCHWARZ Primary Care Unavailable Marcanthony, Magaly Consulting Unavailable Marcanthony, Magaly Attending Unavailable Marcanthony, Magaly Referring Unavailable MANISHA SCHWARZ Primary Care Unavailable Marcanthony, Magaly Consulting Unavailable Marcanthony, Magaly Attending Unavailable DOCTOR, OUT OF TOWN Referring Unavailable Leighton, Deirdre Attending Unavailable Oleghe, Efewongbe Primary Care Unavailable Marcanthony, Magaly Attending Unavailable Oleghe, Efewongbe Primary Care Unavailable Marcanthony, Magaly Referring Unavailable Oleghe, Efewongbe Attending Unavailable DOCTOR, OUT OF TOWN Referring Unavailable Marcanthony, Magaly Attending Unavailable Marcanthony, Magaly Referring Unavailable MANISHA SCHWARZ Primary Care Unavailable Robotham, Iris Attending Unavailable Usman Bernard Admitting Unavailable Marcanthony, Magaly Attending Unavailable MANISHA SCHWARZ Primary Care Unavailable Marcanthony, Magaly Consulting Unavailable Jopperi, Duc Consulting Unavailable Damir Solis VACUUM REPAIRER-C Attending Unavailable DOCTOR, OUT OF TOWN Referring Unavailable GuillermoJosey Attending Unavailable Primay Care Physicia, No Referring Unavailable Oleghe, Efewongbe Attending Unavailable DOCTOR, OUT OF TOWN Referring Unavailable Robotham, Iris Attending Unavailable Marcanthony, Magaly Attending Unavailable DOCTOR, OUT OF TOWN Referring Unavailable Leighton, Deirdre Attending Unavailable Leighton, Deirdre Referring Unavailable Oleghe, Efewongbe Primary Care Unavailable Guillermo Deirdre Attending Unavailable Oleghe, Efewongbe Referring Unavailable Uriah Gallardo Attending Unavailable Wayt, Uriah Referring Unavailable Oleghe, Efewongbe Primary Care Unavailable Uriah Gallardo Attending Unavailable DOCTOR, OUT OF TOWN Referring Unavailable Jose Francisco Maxwell Attending Unavailable Oleghe, Efewongbe Referring Unavailable Oleghe, Efewongbe Primary Care Unavailable Oleghe, Efewongbe Consulting Unavailable Armand Fowler Attending Unavailable Jaxon Lee Referring Unavailable CherelleMagaly Attending Unavailable DOCTOR, OUT OF TOWN Referring Unavailable [place]leghe, Efewongbe Attending Unavailable Oleghe, Efewongbe Referring Unavailable [place]leghe, Efewongbe Primary Care Unavailable Iris Sinclair Attending Unavailable Yahir Iris Referring Unavailable MANISHA SCHWARZ Primary Care Unavailable ANGEL DIETRICH Admitting Unavailable ANGEL DIETRICH Attending Unavailable ANGEL DIETRICH Primary Care Unavailable RADHA KOVACS M.D. Attending Unavailable PATRICIA DE LA ROSA Attending Unavailable PROBLEMS PROBLEMS DATE TYPE CONDITION / CODE ATTENDING STATUS SOURCE Unknown R30.0 - Dysuria / Solis, Damir Active [place] [facility] R30.0(ICD-10) VACUUM REPAIRER-C [facility] Repository Unknown R35.0 - Frequency of Solis, Damir Active [place] [facility] micturition / [facility]PA[facility]C [facility] R35.0(ICD-10) Hospital Repository Unknown J01.10 - Acute frontal Solis, Damir Active [place] [facility] sinusitis, unspecified V[facility]UUM REPAIRER-C Community / J01.10(ICD-10) Hospital Repository Unknown N30.00 - Acute Solis, Damir Active [place] [facility] cystitis without VACUUM REPAIRER-C Community hematuria / Hospital N30.00(ICD-10) Repository Unknown E11.9 - Type 2 Oleghe, Active [place] [facility] diabetes mellitus [facility] without complications Hospital / E11.9(ICD-10) Repository Unknown Z09 - Encounter for Cherelle Active [place] [facility] follow-up examination [facility] after completed Hospital treatment for Repository conditions other than malignant neoplasm / Z09(ICD-10) Unknown D50.9 - Iron Leighton, Active [place] [facility] deficiency anemia, Deirdre [facility] unspecified / Hospital D50.9(ICD-10) Repository Unknown M25.552 - Pain in left Uriah Gallardo Active [place] [facility] hip / M25.552(ICD-10) [facility] Repository Unknown M25.559 - Pain in Wayt, Uriah Active [place] [facility] unspecified hip / Community M25.559(ICD-10) Hospital Repository Unknown M54.16 - Uriah Gallardo Active [place] [facility] Radiculopathy, lumbar Community region / Hospital M54.16(ICD-10) Repository Unknown I10 - Essential Jose Francisco Maxwell Active [place] [facility] (primary) hypertension Community / I10(ICD-10) Hospital Repository Unknown R06.02 - Shortness of Jose Francisco aMxwell Active [place] [facility] breath / Community R06.02(ICD-10) Hospital Repository Unknown G57.00 - Lesion of Oleghe, Active [place] 8 sciatic nerve, [facility] unspecified lower limb Hospital / G57.00(ICD-10) Repository Unknown G57.02 - Lesion of Oleghe, Active [place] 8 sciatic nerve, left [facility] lower limb / Hospital G57.02(ICD-10) Repository Unknown M54.32 - Sciatica, Oleghe, Active [place] left side / [facility] M54.32(ICD-10) Hospital Repository Unknown G89.18 - Other acute Marcanthony, Active [place] [facility] postprocedural pain / [facility] G89.18(ICD-10) Hospital Repository Unknown N63.10 - Unspecified Robotham, Active [place] [facility], [facility] quadrant / Repository N63.10(ICD-10) Unknown R00.0 - Tachycardia, Malcolm, Armand Active [place] [facility] unspecified / Community R00.0(ICD-10) Hospital Repository Unknown R94.31 - Abnormal Malcolm, Armand Active [place] [facility] electrocardiogram Community [ECG] [EKG] / Hospital R94.31(ICD-10) Repository Unknown N63.0 - Unspecified Marcanthony, Active [place] [facility] lump in unspecified [facility] breast / N63.0(ICD-10) Hospital Repository Unknown N93.9 - Abnormal Marcanthony, Active [place] [facility] uterine and vaginal [facility] bleeding, unspecified Hospital / N93.9(ICD-10) Repository Admitting Unknown / UNK(Unknown) Barrett KOVACS [facility] 8 diagnosis RADHA [facility] Repository PROCEDURES PROCEDURES No Procedure Records FoundRESULTS RESULTS INTERNAL MEDICINE Observed: 05/19/2018 Status: F Source: [place] OFFICE VISIT 11:[address] [facility] REPOSITORY [facility] [address] [place] [address] [place] [address] OFFICE VISIT Date of Service: 05/19/18 MR#: [id number] Acct: [id number] Name: MANISHA MARCUS I Rep #: [id number] : 1975 Provider: Damir Solis NP Age/Sex: 42/F Location: [facility] Status: Signed Intake Vital Signs05/19/18 Body Mass Index (BMI) 32.9 05/19/18 Height 5 ft 6 in 05/19/18 Weight: 206 lb 05/19/18 Body Mass Index (BMI) 33.2 05/19/18 Blood Pressure 158/99 H 05/19/18 Blood Pressure Location Rt brachial Intake Visit Reasons: possible uti Chief Complaint: Possible UTI AND cough AND nasal sultana Is patient in pain?: No Allergies ciprofloxacin [From Cipro] Allergy (Verified 05/19/18 10:17) Rash codeine Allergy (Verified 05/19/18 10:17) Anaphylaxis dexamethasone [From Decadron] Allergy (Verified 05/19/18 10:17) Other lamotrigine [From Lamictal] Allergy (Verified 05/19/18 10:17) Rash latex Allergy (Verified 05/19/18 10:17) Rash Medications multivitamin tablet 1 tab PO DAILY 01/19/18 [History Confirmed 05/19/18] busPIRone [Buspar] 10 mg PO BID 01/27/18 [History Confirmed 05/19/18] dicyclomine 20 mg tablet 40 mg PO .QID #360 tab 02/24/18 [Rx Confirmed 05/19/18] ferrous sulfate 325 mg (65 mg iron) tablet 325 mg PO BIDCM #60 tab 02/24/18 [Rx Confirmed 05/19/18] hydrocortisone 2.5 % topical ointment 1 applic TOPICAL QHS #28.35 g 02/24/18 [Rx Confirmed 05/19/18] losartan 100 mg tablet 100 mg PO DAILY #90 tab 02/24/18 [Rx Confirmed 05/19/18] metoprolol succinate ER 100 mg tablet,extended release 24 hr 100 mg PO DAILY #90 tab 02/24/18 [Rx Confirmed 05/19/18] montelukast 10 mg tablet 10 mg PO PRN PRN #90 tab 02/24/18 [Rx Confirmed 05/19/18] sitagliptin 50 mg tablet 50 mg PO DAILY #90 tab 02/24/18 [Rx Confirmed 05/19/18] dulaglutide 1.5 mg/0.5 mL subcutaneous pen injector 1.5 mg SC QWEEK #2 ml 04/13/18 [Rx Confirmed 05/19/18] tizanidine 4 mg tablet 4 mg PO QHS PRN #60 tab 04/13/18 [Rx Confirmed 05/19/18] albuterol sulfate HFA 90 mcg/actuation aerosol inhaler 1 puff INHALATION Q6H PRN #8 g 05/19/18 [Rx Confirmed 05/19/18] fluticasone 50 mcg/actuation nasal spray,suspension 2 spray INTRANASAL DAILY #15.8 g 05/19/18 [Rx Confirmed 05/19/18] levofloxacin 500 mg tablet 500 mg PO DAILY #7 tab 05/19/18 [Rx Confirmed 05/19/18] phenazopyridine 100 mg tablet 100 mg PO TID PRN 0 Days #6 tab 05/19/18 [Rx Confirmed 05/19/18] vortioxetine 10 mg tablet 10 mg PO DAILY 05/19/18 [History Confirmed 05/19/18] PFSH Medical History Bipolar 1 disorder (Chronic) IBS (irritable bowel syndrome) (Chronic) PTSD (post-traumatic stress disorder) (Chronic) Anxiety (Chronic) Chronic hypertension (Acute) Acute on chronic blood loss anemia (Acute) Iron deficiency anemia (Acute) Abnormal uterine bleeding (Chronic) Diabetes (Acute) Bipolar disorder (Inactive) Surgical History History of LAVH (Acute) History of appendectomy (Acute) History of breast biopsy (Acute) History of delivery (Acute) History of gastric bypass (Acute) History of orthopedic surgery (Acute) History of tonsillectomy (Acute) delivery delivered (Inactive) History of ankle surgery (Inactive) Hx of appendectomy (Inactive) Hx of breast reduction, elective (Inactive) Hx of gastric bypass (Inactive) Hx of tonsillectomy (Inactive) Family History Mother No problems noted. Father Heart disease CVA (cerebral vascular accident) Grandmother Diabetes Heart disease Kidney disease Aunt Diabetes Heart disease Kidney disease Social History Smoking Status: Never smoker alcohol intake: never substance use type: does not use caffeine: Yes what type of physical activity do you participate in: walking seatbelt use: always do you feel safe at home: Yes additional social history: [facility] Patient works at [employer] HPI Chief Complaint: Possible UTI AND cough AND nasal sultana Details: MANISHA MARCUS, is a 42 F who presents to the office today for an acute visit of ongoing sinus, nasal congestion, and productive cough of yellow sputum x 4 weeks and an acute complaint of UTI symptoms of urinary burning and frequency x 1 week. She has a past medical history as listed above. The patient states that her symptoms of cough, nasal congestion, and sinus pressure started 4 weeks ago and she was seen at the urgent care and placed on a 10-day course of Augmentin and a steroid taper. She states that this only helped her symptoms for a couple days, however shortly after finishing the antibiotic, her symptoms returned. She has been using Coricidin for high blood pressure and [id number] Afrin with mild relief. She states that she continues to have worsening sinus pressure and nasal congestion, pressure is worse in the frontal and maxillary regions. The patient notes that her UTI symptoms started last week and have been progressively worsening as well. She complains of burning with urination and urinary frequency. Denies any vaginal itching at this time or vaginal discharge. Denies any other aggravating or relieving factors. The patient otherwise denies any fever, chills, nausea, vomiting, shortness of breath, chest pain or pressure, palpitations, orthopnea, lower extremity edema, syncope or presyncopal episodes. ROS Const Constitutional: No chills, fatigue, fever(s), frequent falls, malaise, weakness, sleep problems or change in appetite Eyes Eyes: No blurry vision, change in vision, double vision, discharge or visual disturbances ENT ENT: Positive for nasal congestion and nasal discharge; no abnormal hearing, ear pain, ear pressure, tinnitus or dizziness/vertigo Resp Respiratory: Positive for cough Cough: Yes productive and change in phlegm color (Green); no shortness of breath or wheezing Cardio Cardiology: No chest pain at rest, chest pain with exertion, shortness of breath, dyspnea on exertion, generalized swelling, irregular heart rhythm, lightheadedness, orthopnea, fast heart rate or palpitations Gastro GI: No abdominal pain, change in bowel habits, constipation, diarrhea, nausea/dyspepsia or vomiting Genitourinary-Female: Positive for painful urination, urinary frequency and urinary urgency; no difficulty urinating, burning urination, urinary incontinence, urinary hesitancy, urinary retention, Frequent nighttime urination/ nocturia, sexual problems, genital lesions, abnormal vaginal bleeding, pelvic pain, vaginal dryness, vaginal odor or Vaginal Itching Musc Musculoskeletal: No joint pain, back pain, joint swelling, limited range of motion, numbness, tingling or muscle weakness Skin Skin: No change in skin color, itching, rash or wounds Breast Breast: No breast lump or breast pain Neuro Neurology: No frequent falls, weakness, visual disturbances, abnormal hearing, numbness, tingling, unsteady gait/balance, dizziness, loss of vision or memory loss Psych Psychiatric: No change in appetite, No memory loss, No anxiety, No depression, No Thoughts of harming yourself/Others Endo Endocrine: No fatigue, heat intolerance, increased thirst/drinking, increased hunger or increased urination Aller/Imm Allergy/Immunologic: No wheezing, itchy eyes or seasonal allergy symptoms Santana/Lymp Hematologic/Lymphatic: No easy bleeding, easy bruising or enlarged lymph nodes Exam Const General: cooperative, comfortable, no acute distress Nutritional Appearance: average body habitus, well nourished Orientation: alert, oriented x3 Limitations: mental status not altered [facility] Head: normal to inspection Ears: hearing grossly normal bilaterally, TM's normal bilaterally Nose: external nose normal, mucous membranes and turbinates abnormal erythematous, nasal discharge clear Face and sinus: sinus tenderness maxillary and frontal Mouth: oral mucosae normal Teeth and gingiva: dentition normal Throat: posterior oropharynx normal Neck Neck: lymphadenopathy Resp Effort AND Inspection: normal respiratory effort, able to speak in complete sentences Auscultation: Right: Expiratory Wheezes Cardio Palpation: normal PMI Rate: regular rate Heart Sounds: S1 normal, S2 normal, normal S1 and S2, no click, no gallops, no murmurs, no rubs GI Inspection: normal to inspection Auscultation: normal bowel sounds, no hyperactive bowel sounds, no hypoactive bowel sounds Palpation: soft, no hepatosplenomegaly General: No CVA tenderness Musc Musculoskeletal: No joint tenderness, decreased ROM or muscle weakness Neuro General: alert, awake, oriented x3, CN's II-XI intact bilaterally Speech: speech normal Gait: normal gait Motor: muscle tone normal throughout Extrem General: normal to inspection, normal gait, no edema, no pedal edema Psych Appearance: grossly normal Mental Status: mental status grossly normal Affect: normal affect Attitude: cooperative Thought Process: normal Results [facility] Office Urine Color Colorless Last Edit by Damaris Fletcher on 05/19/18 10:28 Assessment AND Plan 1. Acute frontal sinusitis J01.10 Plan Patient symptoms are consistent that of acute frontal sinusitis. She failed Augmentin and steroid therapy and therefore will put her on Levaquin therapy for 7 days. Discussed with her the importance of discontinuing the Afrin as it will raise her pulse and blood pressure. Blood pressure 158/99 in the office and pulse 110. Discussed that she may take Flonase instead. Discussed conservative management as well such as increasing fluids, hand hygiene, and rest. Discussed red flag symptoms requiring urgent medical attention. Patient verbalized understanding. Patient does state that she has tolerated Levaquin before in the past as she does have a allergy to Cipro. A albuterol inhaler was called to her pharmacy as well for her occasional wheezing. 2. Acute cystitis N30.00 Plan Patient symptoms concerning for acute cystitis. Positive leukocytes on urine dip. We will send out for UA and culture. The Levaquin for her sinus infection should provide urinary coverage as well. Pyridium given for her dysuria. Discussed potential side effects of medication and how to properly take medication. Patient verbalized understanding. Patient to follow-up if symptoms persist or worsen. Plan Detail Other Orders Orders: Other Medications New: Discontinued: Coding Level of Care Code Off vis,est,level 3 Diagnoses Acute frontal sinusitis J01.10 Acute cystitis N30.00 05/19/18 1137 <Electronically signed by Damir Solis VACUUM REPAIRER-C> Date Damir Solis VACUUM REPAIRER-C Cosigner Signature: Date (if applicable) CC: URINALYSIS, COMPLETE Collected: 05/19/2018 Status: F Source: [place] 10:[address] [facility] REPOSITORY Order Comment: How was Urine Obtained? ENGINEERING JOB TITLES TO SPECIFY TYPE CODE TESTS RESULT OUT OF RANGE REFERENCE UNITS LAB L400.3000 Yellow COLOR Normal Yellow LAB L400.3050 Clear Normal CLARITY Clear LAB L400.3200 Normal mg/dl High GLUCOSE, UR 100 LAB L400.3300 Negative mg/dL Normal BILIRUBIN URINE Negative LAB L400.3400 Negative mg/dl Normal KETONE UR Negative LAB L400.3465 1.002-1.030 Normal SP.GR. DIPSTX 1.005 LAB L400.3550 5.0 - 8.0 pH UR Normal 6.5 LAB L400.3600 Negative mg/dl PROT Normal DIPSTX Negative LAB L400.3700 Normal mg/dl Normal UROBILI Normal LAB L400.3750 Negative Normal NITRITE UR Negative LAB L400.3780 Negative /ul High 10 OCCULT BLOOD-UR LAB L400.3800 Negative /ul High LEUK ESTERASE 500 LAB L400.4050 0-5 /hpf WBC Normal 10-25 SEEN LAB L400.4100 0-5 /hpf Normal RBC-UA 0-5 SEEN LAB L400.4150 5-10 /hpf SQUAM 0 Normal EPI SEEN LAB L400.4300 None Seen /hpf 0 Normal BACTERIA SEEN LAB L400.4350 <or=2+ /hpf 0 Normal MUCUS, URINE SEEN Performed By: #### L400.0001 #### [facility] [address], [address] Observed: 05/19/2018 Status: F Source: [place]IA CULTURE, URINE 10:[address] [facility] REPOSITORY Urine Culture ORGANISM 1: Mixed Gram Pos AND Gram Neg Org [place] Count <1000 MIX CULTURE Mixed contaminants. Submit a new specimen if indicated. Performed By: #### M100.0650 #### [facility] [place], [address] DRUG SCREEN URINE Collected: 05/06/2018 Status: F Source: [facility] MEDIC 8:34 [facility] REPOSITORY TYPE CODE TESTS RESULT OUT OF REFERENCE UNITS RANGE LAB DRUG SCREEN URINE MEDIC(LOINC) DRUG SCREEN URINE MEDIC Result Comment: DRUG SCREEN - URINE LAB PCP(LOINC) PCP NEG LAB COCAINE(LOINC) COCAINE NEG LAB OPIATES(LOINC) OPIATES NEG LAB AMPHETAMINES(LOINC ) AMPHETAMINES NEG LAB B-DIAZEPINES(LOINC ) B-DIAZEPINES NEG LAB TCA(LOINC) TCA NEG LAB METHADONE(LOINC) METHADONE NEG LAB BARBITURATES(LOINC ) BARBITURATES NEG LAB THC(LOINC) THC NEG Result Comment: PATIENTS RECEIVING PROTON PUMP INHIBITORS MAY DEMONSTRATE FALSE POSITIVE THC/CANNABINOID RESULTS. AN ALTERNATIVE CONFIRMATORY METHOD SHOULD BE CONSIDERED TO VERIFY POSITIVE RESULTS. Performed By: #### [id number] #### [place] [address] GLUCOSE Collected: 05/06/2018 Status: F Source: [facility] 8:34 [facility] REPOSITORY TYPE CODE TESTS RESULT OUT OF REFERENCE UNITS RANGE LAB GLUCOSE(KATHLEEN 74 - 106 mg/dl NC) High GLUCOSE 355 Performed By: #### [id number] #### [place] [address] LIPID PROFILE Collected: 05/06/2018 Status: F Source: [facility] 8:34 [facility] REPOSITORY TYPE CODE TESTS RESULT OUT OF REFERENCE UNITS RANGE LAB LIPID PROFILE(LOIN C) LIPID PROFILE Result Comment: LIPID PROFILE LAB TRIGLYCERIDE(LOINC) 0 - 150 mg/dl TRIGLYCERIDE 56 LAB CHOLESTEROL(LOINC) 0 - 200 mg/dl CHOLESTEROL 171 LAB HDL(LOINC) 40 - 60 mg/dl HDL High 62 LAB CHOL/HDL(LOINC) 0.0 - 5.0 CHOL/HDL 2.8 LAB LDL(LOINC) 0 - 129 mg/dl LDL 98 Performed By: #### [id number] #### [address],[place] [address] MEASLES IGG ANTIBODY Collected: 05/06/2018 Status: F Source: MARKO LEE [CCL] 8:34 AM [facility] REPOSITORY TYPE CODE TESTS RESULT OUT OF REFERENCE UNITS RANGE LAB MEASLES IGG ANTIBODY [CCL](LOINC) MEASLES IGG ANTIBODY [CCL] Result Comment: _MEASLES IGG ANTIBODY [CCL]_ MEASLES IGG ANTIBODY [CCL] Reported: 05/07/2018 14:41 Status=F TEST RESULT FLAG RANGE UNITS Measles IgG Ab, Qual Negative NEGAT 05/07/18.1444.rfl.COMPLETE.ATLR Absence of detectable measles virus IgG antibodies. A negative result generally indicates that the patient has not been infected and is susceptible to measles. If the subject has no history of measles, has not been previously vaccinated and exposure to measles virus is suspected despite a negative finding, a second sample should be collected and tested within one to two weeks later. Measles IgG Antibody 11.8 AU/mL 05/07/18.1444.rfl.COMPLETE.ATLR AU/mL Value interpreted as follows: Negative specimens <25.0 Equivocal specimens 25.0 to 29.9 Positive specimens >29.9 The magnitude of the measured result, above the cutoff, is not indicative of the amount of antibody present. [facility] [address] [place] [id number] Luiza Soliz M.D. [id number] Performed By: #### [id number] #### [facility],[address] [place] [address] MUMPS IGG AB [CCL] Collected: 05/06/2018 Status: F Source: MARKO LEE 8:34 AM [facility] REPOSITORY TYPE CODE TESTS RESULT OUT OF REFERENCE UNITS RANGE LAB MUMPS IGG AB [CCL](LOINC) MUMPS IGG AB [CCL] Result Comment: _MUMPS IGG AB [CCL]_ MUMPS IGG AB [CCL] Reported: 05/07/2018 14:41 Status=F TEST RESULT FLAG RANGE UNITS Mumps IgG, Qual Negative NEGAT 05/07/18.1444.rfl.COMPLETE.ATLR Absence of detectable mumps virus IgG antibodies. A negative result generally indicates that the patient has not been infected and is susceptible to mumps. If the subject has no history of mumps, has not been previously vaccinated and exposure to mumps virus is suspected despite a negative finding, a second sample should be collected and tested no less than one to two weeks later. Result rechecked. Mumps IgG Ab <5.0 AU/mL 05/07/18.1444.rfl.COMPLETE.ATLR AU/mL Values interpreted as follows: Negative Specimens <9.0 Equivocal specimens 9.0 to 10.9 Positive specimens >10.9 The magnitude of the measured result, above the cutoff, is not indicative of the amount of antibody present. Result rechecked. [facility] [address] [place] [address] Luiza Soliz M.D. [id number] Performed By: #### [id number] #### [facility],[address] [place] [address] RUBELLA IGG ANTIBODY Collected: 05/06/2018 Status: F Source: MARKO FANJERMAINE [CCL] 8:34 AM [facility] REPOSITORY TYPE CODE TESTS RESULT OUT OF REFERENCE UNITS RANGE LAB RUBELLA IgG ANTIBODY [CCL](LOINC) RUBELLA IgG ANTIBODY [CCL] Result Comment: _RUBELLA IGG ANTIBODY [CCL]_ RUBELLA IgG ANTIBODY [CCL] Reported: 05/07/2018 14:41 Status=F TEST RESULT FLAG RANGE UNITS Rubella IgG Ab, Qual Equivocal A NEGAT 05/07/18.1443.rfl.COMPLETE.ATLR A second sample should be collected and tested. Result rechecked. Rubella IgG Ab 0.97 Index 05/07/18.rfl.COMPLETE.ATLR Value Index values are interpreted as follows: Negative specimens <0.90 Equivocol specimens 0.90 to 0.99 Positive specimens >0.99 The magnitude of the measured result is not indicative of the amount of antibody present. Result rechecked. [address] [address] Luiza Soliz M.D. [id number] Performed By: #### [id number] #### [facility],[address] [place], [place] [id number] HEP B SURFACE AB, Collected: 05/06/2018 Status: F Source: MARKO ZELAYAJENY QUANT [CCL] 8:34 AM [facility] REPOSITORY TYPE CODE TESTS RESULT OUT OF REFERENCE UNITS RANGE LAB HEP B SURFACE AB, QUANT [CCL](LOINC) HEP B SURFACE AB, QUANT [CCL] Result Comment: _HEP B SURFACE AB, QUANT [CCL]_ HEP B SURFACE AB, QUANT [CCL] Reported: 05/07/2018 14:41 Status=F TEST RESULT FLAG RANGE UNITS HepB SurfaceAb,Quant <8.00 <8.00 mIU/mL 05/07/18.1444.rfl.COMPLETE.ATLR No evidence of antibodies to Hepatitis [place] [address] Luiza Soliz M.D. [id number] Performed By: #### [id number] #### [facility],[address] [place] [address] NICOTINE/COTININE, SERUM Collected: Status: F Source: MARKO [CCL] 05/06/2018 8:34 AM [facility] REPOSIT[facility] TYPE CODE TESTS RESULT OUT OF REFERENCE UNITS RANGE LAB NICOTINE/COT ININE, SERUM [CCL](LOINC) NICOTINE/COT ININE, SERUM [CCL] Result Comment: _NICOTINE/COTININE, SERUM [CCL]_ NICOTINE/COTININE, SERUM [CCL] Reported: 05/11/2018 10:36 Status=F TEST RESULT FLAG RANGE UNITS Nicotine <2 <2 ng/mL 05/11/18.1038.rfl.COMPLETE.ATLR Cotinine <2 <2 ng/mL 05/11/18.1038.rfl.COMPLETE.ATLR Nornicotine Absent AB 05/11/181038.rfl.COMPLETE.ATLR (NOTE) WHILE USING A TOBACCO PRODUCT: Peak Nicotine concentration: 30 ng/mL to 50 ng/mL Peak Cotinine concentration: 200 ng/mL to 800 ng/mL (Higher Cotinine values may be seen in subjects with high cytochrome P450 2D6 activity.) TOBACCO USER AFTER TWO WKS OF COMPLETE ABSTINENCE: Nicotine concentration: <2.0 ng/mL Cotinine concentration: <2.0 ng/mL NONTOBACCO USER WITH PASSIVE EXPOSURE: Nicotine concentration: <2.0 ng/mL Cotinine concentration: <8.0 ng/mL NONTOBACCO USER WITH NO PASSIVE EXPOSURE: Nicotine concentration: <2.0 ng/mL Cotinine concentration: <2.0 ng/mL The presence of nornicotine indicates tobacco or nicotine exposure while its absence does not rule out the exposure. To discriminate if a patient on nicotine replacement therapy is actively using a tobacco product, the presence of anabasine in URINE indicates recent tobacco use. Anabasine is a tobacco alkaloid not present in nicotine replacement products. This test was developed and its performance characteristics determined by [facility]'s [facility] Pathology and Laboratory Medicine [place]. It has not been cleared or approved by the FDA. [facility] is authorized under CLIA to perform high-complexity testing. This test is used for clinical purposes. It should not be regarded as investigational or for research. [facility] [address] [place] [address] Luiza Soliz M.D. [id number] Performed By: #### [id number] #### [facility],[address] [place] [address] HEPB SURFACEAB,QUANT Collected: 05/06/2018 Status: F Source: [place] 8:34 [facility] REFERENCE REPOSITORY TYPE CODE TESTS RESULT OUT OF RANGE REFERENCE UNITS LAB AHBSQ(LOINC <8.00 mIU/mL ) HepB <8.00 SurfaceAb,Qu ant Performed By: #### AHBSQ, RUBIGG, MUMPSG #### [facility] Immunology [address] [place] [phone] #### MEASLG #### [facility] Routine Lab [address] [place] [phone] #### NICOT #### [facility] Chemistry [address] [place] [phone] MEASLES IGG ANTIBODY Collected: 05/06/2018 Status: F Source: [place] 8:34 [facility] REFERENCE REPOSITORY TYPE CODE TESTS RESULT OUT OF REFERENCE UNITS RANGE LAB MEASQL(LOIN Negative C) Measles IgG Ab, Qual Result Comment: Negative Absence of detectable measles virus IgG antibodies. A negative result generally indicates that the patient has not been infected and is susceptible to measles. If the subject has no history of measles, has not been previously vaccinated and exposure to measles virus is suspected despite a negative finding, a second sample should be collected and tested within one to two weeks later. LAB MEASG(LOINC) AU/mL Measles IgG Antibody 11.8 Performed By: #### AHBSQ, RUBIGG, MUMPSG #### [facility] Immunology [address] [place] [phone] #### MEASLG #### [facility] Routine Lab [address] [place] [phone] #### NICOT #### [facility] Chemistry [address] [place] [phone] RUBELLA IGG ANTIBODY Collected: 05/06/2018 Status: F Source: [place] 8:34 [facility] REFERENCE REPOSITORY TYPE CODE TESTS RESULT OUT OF RANGE REFERENCE UNITS LAB RUBGQL(KATHLEEN Negative NC) Abnormal Rubella IgG Equivocal Ab, Qual LAB RUBQNT(KATHLEEN Index NC) Value 0.97 Rubella IgG Ab Performed By: #### AHBSQ, RUBIGG, MUMPSG #### [facility] Immunology [address] [place] [phone] #### MEASLG #### [facility] Routine Lab [phone] #### NICOT #### [facility] Chemistry [address] [place], [place] [phone] MUMPS IGG AB Collected: 05/06/2018 Status: F Source: [place] 8:34 [facility] REFERENCE REPOSITORY TYPE CODE TESTS RESULT OUT OF REFERENCE UNITS RANGE LAB MUMPSR(LOIN Negative C) Mumps Negative IgG, Qual LAB MUMS(LOINC) AU/mL Mumps IgG <5.0 Ab Performed By: #### AHBSQ, RUBIGG, MUMPSG #### [facility] Immunology [address] [place] [phone] #### MEASLG #### [facility] Routine Lab [address] [place] [phone] #### NICOT #### [facility] Chemistry [address] [place], [place] [phone] NICOTINE/COTININE Collected: Status: F Source: [place] 05/06/2018 8:34 [facility] REFERENCE REPOSITORY TYPE CODE TESTS RESULT OUT OF REFERENCE UNITS RANGE LAB TD(LOINC) <2 ng/mL Nicotine <2 LAB COT(LOINC) <2 ng/mL Cotinine <2 LAB NORNIC(KATHLEEN Absent NC) Nornicotine Absent Performed By: #### AHBSQ, RUBIGG, MUMPSG #### [facility] Immunology [address] [place] [phone] #### MEASLG #### [facility] Routine Lab [address] [place], [place] [address] #### NICOT #### [facility] Chemistry [address] [place], [place] [address] INTERNAL MEDICINE Observed: 04/16/2018 Status: F Source: [place]LEXIA OFFICE VISIT 8:37 AM [facility] Internal Medicine [address] [place] [address] [place] [address] OFFICE VISIT Date of Service: 04/13/18 MR#: [id number] Acct: [id number] Name: MANISHA MARCUS I Rep #: [id number] : 1975 Provider: Glory Gallagher MD Age/Sex: 42/F Location: [facility] Status: Signed Intake Vital Signs04/13/18 Body Mass Index (BMI) 32.9 04/13/18 Height 5 ft 6 in 04/13/18 Weight: 210 lb 04/13/18 Body Mass Index (BMI) 33.9 04/13/18 Blood Pressure 117/76 Intake Visit Reasons: 2 MO FU Chief Complaint: 2 MO FU Allergies ciprofloxacin [From Cipro] Allergy (Verified 04/13/18 11:09) Rash codeine Allergy (Verified 04/13/18 11:09) Anaphylaxis dexamethasone [From Decadron] Allergy (Verified 04/13/18 11:09) Other lamotrigine [From Lamictal] Allergy (Verified 04/13/18 11:09) Rash latex Allergy (Verified 04/13/18 11:09) Rash Medications Duloxetine Hcl [Cymbalta] 60 mg PO BID 09/30/16 [History Confirmed 04/13/18] multivitamin tablet 1 tab PO DAILY 01/19/18 [History Confirmed 04/13/18] Quetiapine Fumarate [Seroquel] 100 mg PO QHS 01/27/18 [History Confirmed 04/13/18] busPIRone [Buspar] 10 mg PO BID 01/27/18 [History Confirmed 04/13/18] Handicap Placard #1 ea 02/09/18 [Rx Confirmed 04/13/18] walker See Dose Instructions .ROUTE .MEDSUPPLY #1 ea 02/09/18 [Rx Confirmed 04/13/18] dicyclomine 20 mg tablet 40 mg PO .QID #360 tab 02/24/18 [Rx Confirmed 04/13/18] ferrous sulfate 325 mg (65 mg iron) tablet 325 mg PO BIDCM #60 tab 02/24/18 [Rx Confirmed 04/13/18] hydrocortisone 2.5 % topical ointment 1 applic TOPICAL QHS #28.35 g 02/24/18 [Rx Confirmed 04/13/18] losartan 100 mg tablet 100 mg PO DAILY #90 tab 02/24/18 [Rx Confirmed 04/13/18] metoprolol succinate ER 100 mg tablet,extended release 24 hr 100 mg PO DAILY #90 tab 02/24/18 [Rx Confirmed 04/13/18] montelukast 10 mg tablet 10 mg PO PRN PRN #90 tab 02/24/18 [Rx Confirmed 04/13/18] sitagliptin 50 mg tablet 50 mg PO DAILY #90 tab 02/24/18 [Rx Confirmed 04/13/18] dulaglutide 1.5 mg/0.5 mL subcutaneous pen injector 1.5 mg SC QWEEK #2 ml 04/13/18 [Rx Confirmed 04/13/18] tizanidine 4 mg tablet 4 mg PO QHS PRN #60 tab 04/13/18 [Rx Confirmed 04/13/18] PFSH Medical History Bipolar 1 disorder (Chronic) IBS (irritable bowel syndrome) (Chronic) PTSD (post-traumatic stress disorder) (Chronic) Anxiety (Chronic) Chronic hypertension (Acute) Acute on chronic blood loss anemia (Acute) Iron deficiency anemia (Acute) Abnormal uterine bleeding (Chronic) Diabetes (Acute) Bipolar disorder (Inactive) Surgical History History of LAVH (Acute) History of appendectomy (Acute) History of breast biopsy (Acute) History of delivery (Acute) History of gastric bypass (Acute) History of orthopedic surgery (Acute) History of tonsillectomy (Acute) delivery delivered (Inactive) History of ankle surgery (Inactive) Hx of appendectomy (Inactive) Hx of breast reduction, elective (Inactive) Hx of gastric bypass (Inactive) Hx of tonsillectomy (Inactive) Family History Mother No problems noted. 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 HPI Chief Complaint: 2 MO FU Details: MANISHA MARCUS, is a 42 F who presents to the office today for follow-up. During her last visit, she was referred to Ortho due to left- sided sciatica thought to be due to possibly piriformis syndrome. An MRI was ordered however this is pending insurance approval. She was also referred to physical therapy per patient states that due to the obesity schedule she has not started this. She denies worsening of her symptoms. Symptoms have remained stable. She also had an echo due to shortness of breath which is said to be worse with activity. Echo without any significant abnormality. Mild left ventricular hypertrophy and stage I diastolic dysfunction. Patient has a history of hypertension. ROS Const Constitutional: No chills, fatigue, fever(s), frequent falls, malaise, weakness, sleep problems or change in appetite Eyes Eyes: No blurry vision, change in vision, double vision, discharge or visual disturbances ENT ENT: No abnormal hearing, ear pain, ear pressure, tinnitus or dizziness/vertigo Resp Respiratory: No cough, shortness of breath or wheezing Cardio Cardiology: No chest pain at rest, chest pain with exertion, shortness of breath, dyspnea on exertion, generalized swelling, irregular heart rhythm, lightheadedness, orthopnea, fast heart rate or palpitations Gastro GI: No abdominal pain, change in bowel habits, constipation, diarrhea, nausea/dyspepsia or vomiting Genitourinary-Female: No difficulty urinating, burning urination, painful urination, urinary incontinence, urinary frequency, urinary urgency, urinary hesitancy, urinary retention, Frequent nighttime urination/ nocturia, sexual problems, genital lesions, abnormal vaginal bleeding, pelvic pain, vaginal dryness, vaginal odor or Vaginal Itching Musc Musculoskeletal: Positive for joint pain (Left hip), numbness (Left leg), tingling (Left leg) and radiating pain into limb (Left leg); no back pain, joint swelling or limited range of motion Skin Skin: No change in skin color, itching, rash or wounds Breast Breast: No breast lump or breast pain Neuro Neurology: Positive for numbness (Left leg) and tingling (Left leg); no frequent falls, weakness, visual disturbances, abnormal hearing, unsteady gait/balance, dizziness, loss of vision or memory loss Psych Psychiatric: No change in appetite, No memory loss, No anxiety, No depression, No Thoughts of harming yourself/Others Endo Endocrine: No fatigue, heat intolerance, increased thirst/drinking, increased hunger or increased urination Aller/Imm Allergy/Immunologic: No wheezing, itchy eyes or seasonal allergy symptoms Santana/Lymp Hematologic/Lymphatic: No easy bleeding, easy bruising or enlarged lymph nodes Exam Const General: cooperative, no acute distress Orientation: alert, awake, oriented x3 HENMT Head: atraumatic, normal to inspection, normocephalic Ears: hearing grossly normal bilaterally Resp Effort AND Inspection: normal respiratory effort, able to speak in complete sentences Auscultation: Bilateral: Clear to Auscultation Cardio Rate: regular rate Rhythm: regular rhythm Heart Sounds: S1 normal, S2 normal GI Palpation: soft, no hepatosplenomegaly Neuro General: alert, awake, oriented x3, moves all extremities, CN's II-XI intact bilaterally Extrem General: no clubbing, cyanosis or edema Psych Appearance: grossly normal Mental Status: mental status grossly normal Mood: congruent mood Affect: normal affect Assessment AND Plan 1. Sciatica of left side M54.32 Plan Most likely secondary to piriformis syndrome. Currently being followed by Ortho. MRI has been ordered. Pending insurance approval. Encouraged follow-up with physical therapy. Follow-up as directed with Ortho. 2. Shortness of breath R06.02 Plan No concerns at this time. Echo with stage I diastolic dysfunction. Optimal blood pressure control recommended. Will follow. 3. Hypertension I10 Plan Optimally controlled. Continue current medication. Continue lifestyle and dietary modifications. 4. Type 2 diabetes mellitus E11.9 Plan Well-controlled per patient. Blood sugar is said to range between the 70s and 120s. Compliant with her medication and also states that she watches her diet closely. A1c and urine microalbumin screen ordered Continue current medication and lifestyle/dietary modifications. Orders Orders: 5. Healthcare maintenance Z00.00 Plan Mammogram said to have been within the year. Subsequent biopsy which was benign. Recent history of hysterectomy due to abnormal uterine bleed. This note was generated with AppFirst dictation software. It may contain incorrect words, spelling, and punctuation that were not noted in checking the note before signing. Plan Detail Other Medications Refilled: Coding Level of Care Code Off vis,est,level 4 Diagnoses Sciatica of left side M54.32 Shortness of breath R06.02 Hypertension I10 Type 2 diabetes mellitus E11.9 Healthcare maintenance Z00.00 04/16/18 0836 <Electronically signed by Glory Gallagher MD> Date Glory Gallagher MD Cosigner Signature: Date (if applicable) CC: CHALKER SOLES OFFICE VISIT Observed: 03/15/2018 Status: F Source: [place] REPORT 10:51 AM [facility] [address] [place] [address] OFFICE VISIT Date of Service: 03/15/18 MR#: [id number] Acct: [id number] Name: MANSIHA MARCUS I Rep #: [id number] : 1975 Provider: Magaly Villarreal MD Age/Sex: 42/F [place] [facility] [place]: Signed Intake Vital Signs03/15/18 Height 5 ft 6 in 03/15/18 Weight: 204 lb 03/15/18 Body Mass Index (BMI) 32.9 03/15/18 Blood Pressure 120/82 H Intake Visit Reasons: 6 WEEK POST OP Chief Complaint: 6w post op Terrazzo Finisher Required: No Is patient in pain?: Yes Allergies ciprofloxacin [From Cipro] Allergy (Verified 03/15/18 10:15) Rash codeine Allergy (Verified 03/15/18 10:15) Anaphylaxis dexamethasone [From Decadron] Allergy (Verified 03/15/18 10:15) Other lamotrigine [From Lamictal] Allergy (Verified 03/15/18 10:15) Rash latex Allergy (Verified 03/15/18 10:15) Rash Medications Duloxetine Hcl [Cymbalta] 60 mg PO BID 09/30/16 [History Confirmed 03/15/18] multivitamin tablet 1 tab PO DAILY 01/19/18 [History Confirmed 03/15/18] Quetiapine Fumarate [Seroquel] 100 mg PO QHS 01/27/18 [History Confirmed 03/15/18] busPIRone [Buspar] 10 mg PO BID 01/27/18 [History Confirmed 03/15/18] Naproxen [Naprosyn] 250 - 500 mg PO Q8H PRN PRN #30 tab 01/28/18 [Rx Confirmed 03/15/18] Handicap Placard #1 ea 02/09/18 [Rx Confirmed 03/15/18] walker See Dose Instructions .ROUTE .MEDSUPPLY #1 ea 02/09/18 [Rx Confirmed 03/15/18] dicyclomine 20 mg tablet 40 mg PO .QID #360 tab 02/24/18 [Rx Confirmed 03/15/18] dulaglutide 1.5 mg/0.5 mL subcutaneous pen injector 1.5 mg SC QWEEK #2 ml 02/24/18 [Rx Confirmed 03/15/18] ferrous sulfate 325 mg (65 mg iron) tablet 325 mg PO BIDCM #60 tab 02/24/18 [Rx Confirmed 03/15/18] hydrocortisone 2.5 % topical ointment 1 applic TOPICAL QHS #28.35 g 02/24/18 [Rx Confirmed 03/15/18] losartan 100 mg tablet 100 mg PO DAILY #90 tab 02/24/18 [Rx Confirmed 03/15/18] metoprolol succinate ER 100 mg tablet,extended release 24 hr 100 mg PO DAILY #90 tab 02/24/18 [Rx Confirmed 03/15/18] montelukast 10 mg tablet 10 mg PO PRN PRN #90 tab 02/24/18 [Rx Confirmed 03/15/18] sitagliptin 50 mg tablet 50 mg PO DAILY #90 tab 02/24/18 [Rx Confirmed 03/15/18] tizanidine 4 mg tablet 4 mg PO QHS PRN #60 tab 02/24/18 [Rx Confirmed 03/15/18] metronidazole 500 mg tablet 500 mg PO BID #14 tab 03/01/18 [Rx Confirmed 03/15/18] Is last menstrual period known: No Post menopausal: No Patient : No : No PFSH Medical History Bipolar 1 disorder (Chronic) IBS (irritable bowel syndrome) (Chronic) PTSD (post-traumatic stress disorder) (Chronic) Anxiety (Chronic) Chronic hypertension (Acute) Acute on chronic blood loss anemia (Acute) Iron deficiency anemia (Acute) Abnormal uterine bleeding (Chronic) Diabetes (Acute) Bipolar disorder (Inactive) Surgical History History of LAVH (Acute) History of appendectomy (Acute) History of breast biopsy (Acute) History of delivery (Acute) History of gastric bypass (Acute) History of orthopedic surgery (Acute) History of tonsillectomy (Acute) delivery delivered (Inactive) History of ankle surgery (Inactive) Hx of appendectomy (Inactive) Hx of breast reduction, elective (Inactive) Hx of gastric bypass (Inactive) Hx of tonsillectomy (Inactive) Family History Mother No problems noted. 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 6 WEEK POST OP: Details: MANISHA MARCUS is a 42 year old who presents for postop exam . she is doing well. she has a history of fecal incontinence and is wanting to know what she can do for this. Pregancy History 6 Elective abortions Hx Para 3 Spontaneous abortions Past Pregnancies Del. DateName GA/Weeks Outcome Route Bth WeighInfant GeLabor LgtAnesthesiDel LocatProvider FOB t n h a n ROS Const Constitutional: Reports system reviewed and no additional complaints, except as docu GI GI: Denies abdominal pain, nausea, vomiting or cramping : Denies urinary frequency, vaginal dryness, vaginal discharge, urinary urgency, urinary incontinence, vaginal odor or pelvic pain Exam Const General: cooperative, healthy appearing, comfortable, no acute distress GI Inspection: normal to inspection Palpation: soft, nontender Other: Incisions: C/D/I Assessment AND Plan Problems 1. Postop check Z09 Plan routine care, recommend olga lidia referral for fecal incontinence Coding Level of Care Code No Charge Diagnoses Postop check Z09 03/15/18 1051 <Electronically signed by Magaly Villarreal MD> Date Magaly Villarreal MD Cosigner Signature: Date (if applicable) CC: CHALKER SOLES OFFICE VISIT Observed: 03/01/2018 Status: F Source: [place] REPORT 1:[address] [facility] REPOSITORY [facility] [place] [address] [place] [address]. [address] [place] [address] OFFICE VISIT Date of Service: 03/01/18 MR#: [id number] Acct: [id number] Name: MANISHA MARCUS I Rep #: [id number] : 1975 Provider: TERRY Li Age/Sex: 42/F [place] [facility] [place]: Signed Intake Vital Signs03/01/18 Height 5 ft 6 in 03/01/18 Weight: 205 lb 2 oz 03/01/18 Body Mass Index (BMI) 33.0 03/01/18 Blood Pressure 120/78 Intake Visit Reasons: ?BV hyst done on 01/28 Chief Complaint: Pt. complaint of a smell like a wet dog and thinks hemoglobin is low Terrazzo Finisher Required: No Is patient in pain?: Yes (Pt. states pain is like menstrual cramps real low ) Pain scale (1-10): 4 Allergies ciprofloxacin [From Cipro] Allergy (Verified 03/01/18 10:23) Rash codeine Allergy (Verified 03/01/18 10:23) Anaphylaxis dexamethasone [From Decadron] Allergy (Verified 03/01/18 10:23) Other lamotrigine [From Lamictal] Allergy (Verified 03/01/18 10:23) Rash latex Allergy (Verified 03/01/18 10:23) Rash Medications Duloxetine Hcl [Cymbalta] 60 mg PO BID 09/30/16 [History Confirmed 03/01/18] multivitamin tablet 1 tab PO DAILY 01/19/18 [History Confirmed 03/01/18] Quetiapine Fumarate [Seroquel] 100 mg PO QHS 01/27/18 [History Confirmed 03/01/18] busPIRone [Buspar] 10 mg PO BID 01/27/18 [History Confirmed 03/01/18] Naproxen [Naprosyn] 250 - 500 mg PO Q8H PRN PRN #30 tab 01/28/18 [Rx Confirmed 03/01/18] Handicap Placard #1 ea 02/09/18 [Rx Confirmed 03/01/18] walker See Dose Instructions .ROUTE .MEDSUPPLY #1 ea 02/09/18 [Rx Confirmed 03/01/18] dicyclomine 20 mg tablet 40 mg PO .QID #360 tab 02/24/18 [Rx Confirmed 03/01/18] dulaglutide 1.5 mg/0.5 mL subcutaneous pen injector 1.5 mg SC QWEEK #2 ml 02/24/18 [Rx Confirmed 03/01/18] ferrous sulfate 325 mg (65 mg iron) tablet 325 mg PO BIDCM #60 tab 02/24/18 [Rx Confirmed 03/01/18] hydrocortisone 2.5 % topical ointment 1 applic TOPICAL QHS #28.35 g 02/24/18 [Rx Confirmed 03/01/18] losartan 100 mg tablet 100 mg PO DAILY #90 tab 02/24/18 [Rx Confirmed 03/01/18] metoprolol succinate ER 100 mg tablet,extended release 24 hr 100 mg PO DAILY #90 tab 02/24/18 [Rx Confirmed 03/01/18] montelukast 10 mg tablet 10 mg PO PRN PRN #90 tab 02/24/18 [Rx Confirmed 03/01/18] sitagliptin 50 mg tablet 50 mg PO DAILY #90 tab 02/24/18 [Rx Confirmed 03/01/18] tizanidine 4 mg tablet 4 mg PO QHS PRN #60 tab 02/24/18 [Rx Confirmed 03/01/18] metronidazole 500 mg tablet 500 mg PO BID #14 tab 03/01/18 [Rx Confirmed 03/01/18] Is last menstrual period known: No Post menopausal: No Patient : No : No PFSH Medical History Bipolar 1 disorder (Chronic) IBS (irritable bowel syndrome) (Chronic) PTSD (post-traumatic stress disorder) (Chronic) Anxiety (Chronic) Chronic hypertension (Acute) Acute on chronic blood loss anemia (Acute) Iron deficiency anemia (Acute) Abnormal uterine bleeding (Chronic) Diabetes (Acute) Bipolar disorder (Inactive) Surgical History History of LAVH (Acute) History of appendectomy (Acute) History of breast biopsy (Acute) History of delivery (Acute) History of gastric bypass (Acute) History of orthopedic surgery (Acute) History of tonsillectomy (Acute) delivery delivered (Inactive) History of ankle surgery (Inactive) Hx of appendectomy (Inactive) Hx of breast reduction, elective (Inactive) Hx of gastric bypass (Inactive) Hx of tonsillectomy (Inactive) Family History Mother No problems noted. Father Heart disease CVA (cerebral vascular accident) Grandmother Diabetes Heart disease Kidney disease Aunt Diabetes Heart disease Kidney disease Social History Smoking Status: Never smoker alcohol intake: never substance use type: does not use caffeine: Yes what type of physical activity do you participate in: walking seatbelt use: always do you feel safe at home: Yes additional social history: Rebecca COLEMANnuisance wildlife specialist Patient works at [employer] ?BV hyst done on 01/28: Details: MANISHA MARCUS is a 42 year old who presents for malodorous vaginal discharge. Had vaginal hystectomy 4 weeks ago. Has not been sexually active yet. She is also feeling like her heart is beating faster and very weak. She has history of iron deficient anemia. Pregancy History 6 Elective abortions Hx Para 3 Spontaneous abortions Past Pregnancies Del. DateName GA/Weeks Outcome Route Bth WeighInfant GeLabor LgtAnesthesiDel LocatProvider FOB t n h a n Exam Other: Mild erythema of vaginal with malodorous yellow discharge. Cuff well healed, short suture at top of vault noted. Assessment AND Plan Problems 1. Bacterial vaginosis N76.0; B96.89 2. Iron deficiency anemia, unspecified iron deficiency anemia type D50.9 Plan Rx flagyl CBC-call results RTO routine postop at 6 weeks Orders Orders: Medications New: Coding Level of Care Code No Charge Diagnoses Bacterial vaginosis N76.0; B96.89 Iron deficiency anemia, unspecified iron deficiency anemia type D50.9 Iron deficiency anemia type: unspecified iron deficiency 03/01/18 1300 <Electronically signed by Deirdre LIZAMAC> Date Deirdre Li NP-C Cosigner Signature: Date (if applicable) CC: CBC W/DIFF, AUTOMATED Collected: 03/01/2018 Status: F Source: [place] 11:[address] [facility] REPOSITORY TYPE CODE TESTS RESULT OUT OF RANGE REFERENCE UNITS LAB L100.1000 4.4-11.0 K/mm3 Normal WBC 6.4 LAB L100.1200 4.2-5.4 M/mm3 Normal RBC 4.38 LAB L100.1300 12.0-15.0 g/dl Low HGB 11.1 LAB L100.1400 37-47 % Low HCT 35.9 LAB L100.1500 81-99 fL Normal MCV 82.0 LAB L100.1600 27.0-32.0 pg Low MCH 25.3 LAB L100.1700 32-36 g/gl Low MCHC 30.9 LAB L100.1810 11.6-14.6 % High RDW CV 19.6 LAB L100.1820 35.1-43.9 fl High RDW SD 59.2 LAB L100.1900 150-450 K/mm3 Normal PLT 273 LAB L100.2000 6.2-12.0 fl Normal MPV 9.2 LAB L100.2100 47-70 % Normal NEUT% 66.5 LAB L100.2200 19-41 % Normal LY% 21.1 LAB L100.2300 0-10 % Normal MONO% 8.3 LAB L100.2400 0-5 % Normal EO% 3.4 LAB L100.2500 0-1 % Normal BASO% 0.5 LAB L100.2550 0.0-0.9 % Normal IM GRAN % 0.200 Result Comment: IG% - Immature Granulocytes (promyelocytes, myelocytes and metamyelocytes) > 1% indicates that a LEFT SHIFT is Present. LAB L100.2620 2.0-7.7 X10 3/uL Normal Absolute Neut 4.3 LAB L100.2720 0.83-4.51 X10 3/ul Normal Absolute Lymph 1.35 Performed By: #### L100.0100 #### [facility] [address] [place], [place], [id number] ORTHOPEDIC VISIT Observed: 02/25/2018 Status: F Source: [place] REPORT 1:[address] [facility] REPOSITORY [facility] [address] [place] [id number] OFFICE VISIT Date of Service: 02/25/18 MR#: [id number] Acct: [id number] Name: MANISHA MARCUS I Rep #: [id number] : 1975 Provider: SKIP Gallardo Age/Sex: 42/F Location: [facility] [place] Status: Signed Intake Vital Signs02/25/18 Height 5 ft 6 in Intake Visit Reasons: LEFT HIP Chief Complaint: establish care Terrazzo Finisher Required: No Accompanied by: None Is patient in pain?: Yes (left hip) Pain scale (1-10): 7 Allergies ciprofloxacin [From Cipro] Allergy (Verified 02/15/18 14:46) Rash codeine Allergy (Verified 02/15/18 14:46) Anaphylaxis dexamethasone [From Decadron] Allergy (Verified 02/15/18 14:46) Other lamotrigine [From Lamictal] Allergy (Verified 02/15/18 14:46) Rash latex Allergy (Verified 02/15/18 14:46) Rash Medications Duloxetine Hcl [Cymbalta] 60 mg PO BID 09/30/16 [History Confirmed 02/15/18] multivitamin tablet 1 tab PO DAILY 01/19/18 [History Confirmed 02/15/18] Quetiapine Fumarate [Seroquel] 100 mg PO QHS 01/27/18 [History Confirmed 02/15/18] busPIRone [Buspar] 10 mg PO BID 01/27/18 [History Confirmed 02/15/18] Naproxen [Naprosyn] 250 - 500 mg PO Q8H PRN PRN #30 tab 01/28/18 [Rx Confirmed 02/15/18] Handicap Placard #1 ea 02/09/18 [Rx Confirmed 02/15/18] walker See Dose Instructions .ROUTE .MEDSUPPLY #1 ea 02/09/18 [Rx Confirmed 02/15/18] dicyclomine 20 mg tablet 40 mg PO .QID #360 tab 02/24/18 [Rx] dulaglutide 1.5 mg/0.5 mL subcutaneous pen injector 1.5 mg SC QWEEK #2 ml 02/24/18 [Rx] ferrous sulfate 325 mg (65 mg iron) tablet 325 mg PO BIDCM #60 tab 02/24/18 [Rx] hydrocortisone 2.5 % topical ointment 1 applic TOPICAL QHS #28.35 g 02/24/18 [Rx] losartan 100 mg tablet 100 mg PO DAILY #90 tab 02/24/18 [Rx] metoprolol succinate ER 100 mg tablet,extended release 24 hr 100 mg PO DAILY #90 tab 02/24/18 [Rx] montelukast 10 mg tablet 10 mg PO PRN PRN #90 tab 02/24/18 [Rx] sitagliptin 50 mg tablet 50 mg PO DAILY #90 tab 02/24/18 [Rx] tizanidine 4 mg tablet 4 mg PO QHS PRN #60 tab 02/24/18 [Rx] PFSH Medical History Bipolar 1 disorder (Chronic) IBS (irritable bowel syndrome) (Chronic) PTSD (post-traumatic stress disorder) (Chronic) Anxiety (Chronic) Chronic hypertension (Acute) Acute on chronic blood loss anemia (Acute) Iron deficiency anemia (Acute) Abnormal uterine bleeding (Chronic) Diabetes (Acute) Bipolar disorder (Inactive) Surgical History History of LAVH (Acute) History of appendectomy (Acute) History of breast biopsy (Acute) History of delivery (Acute) History of gastric bypass (Acute) History of orthopedic surgery (Acute) History of tonsillectomy (Acute) delivery delivered (Inactive) History of ankle surgery (Inactive) Hx of appendectomy (Inactive) Hx of breast reduction, elective (Inactive) Hx of gastric bypass (Inactive) Hx of tonsillectomy (Inactive) Family History Mother No problems noted. Father Heart disease CVA (cerebral vascular accident) Grandmother Diabetes Heart disease Kidney disease Aunt Diabetes Heart disease Kidney disease Social History Smoking Status: Never smoker alcohol intake: never substance use type: does not use caffeine: Yes what type of physical activity do you participate in: walking seatbelt use: always do you feel safe at home: Yes additional social history: Rebecca COLEMANnuisance wildlife specialist Patient works at [employer] LEFT HIP: Details: MANISHA MARCUS is a 42 year old F here today for left hip pain. Patient has had the hip pain intermittently for the past 20 years but has been worse about 3 years with no known injury. Patient rates her pain as a 7/10 today and describes as a burn and down into her leg and foot it is numb and tingly. Patient states that standing, sitting, and laying on her left side seems to make her pain worse. The pain can be relieved by laying on her right side along with taking a muscle relaxer. The pain does go down her left leg and into her foot, but does not radiate into her back. Denies popping or clicking. Had xrays done a few months ago at [facility]. Has not had MRI, injections, or PT. Patient states she has previously gone to a chiropractor with no relief. Patient is currently ambulating with a cane and states that she is using it because she is unable to gauge if her foot is all the way down when she walks. Ortho Exam Left Hip Contralateral Normal: Yes Hip: Absent eccymosis, soft tissue swelling, erythema or TTP Greater Troch Impingement Test: 1 Labral Stress Test: 2 Special Tests: pain with log roll, iliopsoas snap, IT band snap or MICHELL test Katlin test: 2 Homans Sign: No HIP: Patient has full range of motion of the hip at this time. She does have normal strength in the hip against resistance in all directions. She does not have any pains on palpation of the greater trochanter and has no evidence of any IT band involvement. She does have a positive Katlin test. Spine Neuro: No Clonus, Straight Leg Raise or Light Touch Sensation (This is severely decreased on the p) Speech: speech normal Gait: antalgic, gait assisted (Using a walker) Motor: No strength 5/5 throughout SPINE TESTING CERVICAL THORACIC LUMBAR SLR: Negative, Le Musculoskeletal Thoracic/Lumbar Spine: No lumbar spinal tenderness, No thoraco- lumbar spasm, No paraspinal tenderness Sacroiliac joints: left Sacrum: No tenderness Strength 0=absent - 5=normal L Quadriceps (L2-4): 4, L Anterior Tibialis (L4-5): 3, L EHL (L5): 3, L Hamstrings (L5-S1): 4 Details: At this time patient does not have any tenderness over the spinous process or adjacent spinous muscles. She does have some tenderness near the left PSIS (just lateral). She does have some tenderness over the piriformis muscle. She has a negative seated and supine straight leg raises. She definitely has some weakness in the left lower extremity as described above. She also has evident decrease in sensation on the plantar surface of the foot. Patient has absent two-point discrimination and even absent light touch sensation on the plantar surface of the toes and the ball of the foot. She can sense some minor pressure near the arch and heel but that is it Assessment AND Plan Problems 1. Sciatica of left side M54.32 2. Piriformis syndrome of left side G57.02 3. Weakness of left leg R29.898 Plan Obtained Xrays of patient's lumba spine as well as left hip. Personally reviewed Xrays with patient. X-ray of the hip did not show any evident abnormalities. Lumbar spine x-rays show some osteophytic bridging in the upper lumbar low thoracic at the same time normal disc space, no spondylo-or retrolisthesis, and normal vertebral bodies. There is no obvious fracture, dislocation, or lucency noted. This time patient has had symptoms in the leg really on and off for 20 years. Her first episode occurred when she was 20 years ago and had a another recurrence when she was 13 years ago. Those episodes were not long lasting. She states then that the past 3 years that the symptoms have been pretty constant and has not gradually over that time worsened. So at this time the chronicity of her symptoms with evident weakness as well as decreased sensation in parts of the lower leg we are going to begin workup to include EMG/NCS, an MRI of the lumbar spine, as well as physical therapy. We will see her back in the office following the MRI to go over her results as well as recheck her symptoms. Patient is to notify the office sooner of any new or changes in symptoms. Orders Orders: Coding Level of Care Code Off vis,new,level 4 Diagnoses Sciatica of left side M54.32 Piriformis syndrome of left side G57.02 Weakness of left leg R29.898 02/25/18 1341 <Electronically signed by Uriah VALDIVIA> Date Uriah VALDIVIA Cosigner Signature: Date (if applicable) CC: HIP, UNI W/ PELVIS Observed: 02/25/2018 Status: F Source: [place] 2-3 VIEWS 9:[address] [facility] REPOSITORY [facility] Imaging Services [address] [place] [address] HIP, UNI W/ Pelvis 2-3 Views MR#: [id number] Acct: [id number] Name: AMRITMANISHA Valera Rep #: [id number] : 1975 F 42 From: Ruth Nelson MD PCP: OUT OF TOWN DOCTOR Status: REG CLI Study: HIP, UNI W/ Pelvis 2-3 Views Date of Exam: 02/25/18 Exam# [id number] Ordering Dr: Uriah Gallardo STUDY: X-RAY - PELVIS AND LEFT HIP REASON FOR EXAM: Female, 42 years old. Chronic pain. TECHNIQUE: Radiological exam, hip, unilateral, with pelvis when performed; 2 or 3 views. COMPARISON: None. FINDINGS: There is a non-specific bowel gas pattern. Normal visualized soft tissue structures. Normal bilateral iliac wings, sacroiliac joints and visualized sacrum. Normal bilateral superior and inferior pubic rami. Normal pubic symphysis. Normal bilateral ischial tuberosities. There are mild degenerative changes of the hips. RAD/HIP, UNI W/ Pelvis 2-3 Views IMPRESSION: Mild degenerative changes of the hips. Electronically Signed: Ruth Nelson MD at 23:00 EDT Tel , Service support , CC: SKIP Gallardo; OUT OF TOWN DOCTOR Rice Dryer Mechanic: Signed L/S SPINE MIN 4 Observed: 02/25/2018 Status: F Source: [place] VIEWS 9:[address] [facility] REPOSITORY [facility] Imaging Services [address] [place] [address] L/S Spine Min 4 Views MR#: [id number] Acct: [id number] Name: MANISHA MARCUS I Rep #: [id number] : 1975 F 42 From: Dwight Hendrix MD PCP: OUT OF TOWN DOCTOR Status: REG CLI Study: L/S Spine Min 4 Views Date of Exam: 02/25/18 Exam# [id number] Ordering Dr: Uriah Gallardo STUDY: X-RAY - LUMBAR SPINE REASON FOR EXAM: Female, 42 years old. Chronic pain. No known injury. TECHNIQUE: 5 view(s) of the lumbar spine were obtained including oblique views. COMPARISON: None FINDINGS: There is straightening of the normal lumbar lordosis. There is no substantial scoliosis. There is a normal alignment of the vertebrae. There is multilevel endplate spondylosis of the lumbar vertebrae. Normal disc space heights. The soft tissue structures are unremarkable. RAD/L/S Spine Min 4 Views IMPRESSION: Degenerative changes of the spine, as detailed above. Electronically Signed: Dwight Hendrix MD at 8:28 EDT Tel [phone], Service support , CC: SKIP Gallardo; OUT OF TOWN DOCTOR Rice Dryer Mechanic: Signed ECHOCARDIOGRAM COMPLETE Observed: 02/23/2018 Status: F Source: [place] 7:[address] [facility] REPOSITORY [facility] Cardiovascular Services [address] [place] [address] Echo Complete 02/22/18 0824 MR#: [id number] Acct: [id number] Name: MANISHA MARCUS Moraima Rep #: [id number] : 1975 42 From: Jose Francisco Maxwell MD Attending Dr: Glory Gallagher MD Status: REG CLI Ordering Dr: Glory Gallagher MD Date: 02/22/18 Location: [facility] Sex: F C Admitted: [id number] ECHO [id number] TAG_START Cardiovascular Services Echocardiogram [address] [id number] Ordering Physician: Glory Gallagher TAG_ENDED TAG_START Name: MANISHA MARCUS Moraima Study Date: 02/22/2018 08:24 AM BP: 158/84 mmHg Patient Location: [facility] BSA: 2.0 m2 : 1975 Gender: Female Height: 66 in Age: 42 yrs Ethnicity: C Weight: 195 lb History: Fam Hx CAD, anemia, Bopolar disorder, HTN, DMII, PTSD TAG_ENDED Reason For Study: HTN Procedure This was a 2D Doppler, Color Flow transthoracic echocardiogram. Exam performed in department. Left Ventricle Mild concentric left ventricular hypertrophy. The estimated ejection fraction is 65 %. Stage 1 diastolic dysfunction. No regional wall motion abnormalities noted. TAG_START I Segments Size 1-2 small X - Cannot 1 - Normal 2 - 3 - Akinetic 4 - Dyskinetic3-5 moderate Interpret Hypokinetic 6-14 large 5 - Aneurysmal 15-16 diffuse TAG_ENDED Right Ventricle Normal size and thickness. Normal systolic function. Atria Normal left atrium. Normal right atrium. Normal atrial septum. Mitral Valve The mitral valve is structurally normal. No prolapse or stenosis seen. Tricuspid Valve Normal tricuspid valve. Unable to estimate RV systolic pressure due to inadequate jet, pulmonary artery pressure probably normal. Aortic Valve Normal aortic valve. Trisinus/trileaflet aortic valve. Pulmonic Valve Normal pulmonic valve. Great Vessels Normal aortic root. Normal arch. Normal inferior vena cava. Inferior vena cava collapse with sniff. Pericardium/Pleural No pericardial effusion. MMode/2D Measurements AND Calculations LVIDd: 4.0 cm IVSd: 1.3 cm Ao root diam: 2.9 cm LVIDs: 2.7 cm LVPWd: 1.3 cm LA dimension: 4.0 cm RVDd: 3.4 cm FS: 31.5 % LAV(MOD-bp): 59.9 ml LA A4 area: 20.8 cm2 LA dimension(2D): 4.0 cm LAV(MOD-bp) Indexed: 30.3 ml/m2 LAV(MOD-sp2): 48.9 ml LAV(MOD-sp4): 62.9 ml RA A4 area: 12.3 cm2 Time Measurements MV dec time: 0.21 sec Doppler Measurements AND Calculations MV E max nyla: 74.0 cm/sec Lat Peak E' Nyla: 8.4 cm/sec Med Peak E' Nyla: 7.2 cm/sec MV A max nyla: 101.5 cm/sec E/E' lat: 8.8 E/E' med: 10.3 MV E/A: 0.73 Ao V2 max: 189.0 cm/sec LV V1 max: 136.2 cm/sec PA V2 max: 159.2 cm/sec Ao max P.3 mmHg LV V1 max P.4 mmHg Interpretation Summary Mild concentric left ventricular hypertrophy. The estimated ejection fraction is 65 %. Stage 1 diastolic dysfunction. Unable to estimate RV systolic pressure due to inadequate jet, pulmonary artery pressure probably normal. There is no comparison study available. TAG_START TAG_ENDED Ordering Physician: Glory Gallagher Referring Physician: Glory Gallagher Performed By: Kate Dupont, LEILA, RVT 02/22/181726 Date Jose Francisco Maxwell MD CC: Glory Gallagher MD Date Dictated: 02/22/18 0824 Date Transcribed: 02/22/181726 Rice Dryer Mechanic: Signed CHALKER SOLES OFFICE VISIT Observed: 02/17/2018 Status: F Source: [place] REPORT 6:41 AM [facility] [address] [place] [address] OFFICE VISIT Date of Service: 02/15/18 MR#: [id number] Acct: [id number] Name: MANISHA MARCUS I Rep #: [id number] : 1975 Provider: Magaly Villarreal MD Age/Sex: 42/F Location: [facility] Status: Signed Intake Vital Signs02/15/18 Height 5 ft 7 in 02/15/18 Weight: 196 lb 02/15/18 Body Mass Index (BMI) 30.7 02/15/18 Blood Pressure 120/76 Intake Visit Reasons: 2 WEEK POST OP Terrazzo Finisher Required: No Is patient in pain?: No Allergies ciprofloxacin [From Cipro] Allergy (Verified 02/15/18 14:46) Rash codeine Allergy (Verified 02/15/18 14:46) Anaphylaxis dexamethasone [From Decadron] Allergy (Verified 02/15/18 14:46) Other lamotrigine [From Lamictal] Allergy (Verified 02/15/18 14:46) Rash latex Allergy (Verified 02/15/18 14:46) Rash Medications Duloxetine Hcl [Cymbalta] 60 mg PO BID 09/30/16 [History Confirmed 02/15/18] dulaglutide 1.5 mg/0.5 mL subcutaneous pen injector 1.5 mg SC QWEEK 01/04/18 [History Confirmed 02/15/18] sitagliptin 50 mg tablet 50 mg PO DAILY 01/04/18 [History Confirmed 02/15/18] Losartan Potassium 100 mg PO DAILY 01/11/18 [History Confirmed 02/15/18] Metoprolol Succinate [Toprol Xl] 100 mg PO DAILY 01/11/18 [History Confirmed 02/15/18] Montelukast [Singulair] 10 mg PO PRN PRN 01/11/18 [History Confirmed 02/15/18] Tizanidine HCl 4 mg PO PRN PRN 01/11/18 [History Confirmed 02/15/18] Ferrous Sulfate 325 mg PO BIDCM #60 tab 01/13/18 [Rx Confirmed 02/15/18] multivitamin tablet 1 tab PO DAILY 01/19/18 [History Confirmed 02/15/18] Quetiapine Fumarate [Seroquel] 100 mg PO QHS 01/27/18 [History Confirmed 02/15/18] busPIRone [Buspar] 10 mg PO BID 01/27/18 [History Confirmed 02/15/18] Naproxen [Naprosyn] 250 - 500 mg PO Q8H PRN PRN #30 tab 01/28/18 [Rx Confirmed 02/15/18] Handicap Placard #1 ea 02/09/18 [Rx Confirmed 02/15/18] dicyclomine 20 mg tablet 40 mg PO .QID PRN tab 02/09/18 [History Confirmed 02/15/18] hydrocortisone 2.5 % topical ointment 1 applic TOPICAL QHS #28.35 g 02/09/18 [Rx Confirmed 02/15/18] walker See Dose Instructions .ROUTE .MEDSUPPLY #1 ea 02/09/18 [Rx Confirmed 02/15/18] Is last menstrual period known: No Post menopausal: No Patient : No : No PFSH Medical History Bipolar 1 disorder (Chronic) IBS (irritable bowel syndrome) (Chronic) PTSD (post-traumatic stress disorder) (Chronic) Anxiety (Chronic) Chronic hypertension (Acute) Acute on chronic blood loss anemia (Acute) Iron deficiency anemia (Acute) Abnormal uterine bleeding (Chronic) Diabetes (Acute) Bipolar disorder (Inactive) Surgical History History of LAVH (Acute) History of appendectomy (Acute) History of breast biopsy (Acute) History of delivery (Acute) History of gastric bypass (Acute) History of orthopedic surgery (Acute) History of tonsillectomy (Acute) delivery delivered (Inactive) History of ankle surgery (Inactive) Hx of appendectomy (Inactive) Hx of breast reduction, elective (Inactive) Hx of gastric bypass (Inactive) Hx of tonsillectomy (Inactive) Family History Mother No problems noted. 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 2 WEEK POST OP: Details: MANISHA MARCUS is a 42 year old who presents for postop visit. she is doingw ell Pregancy History 6 Elective abortions Hx Para 3 Spontaneous abortions Past Pregnancies Del. DateName GA/Weeks Outcome Route Bth WeighInfant GeLabor LgtAnesthesiDel LocatProvider FOB t n h a n ROS Const Constitutional: Reports system reviewed and no additional complaints, except as docu GI GI: Denies abdominal pain, nausea, vomiting or cramping : Denies urinary frequency, vaginal dryness, vaginal discharge, urinary urgency, urinary incontinence, vaginal odor or pelvic pain Exam Const General: cooperative, healthy appearing, comfortable, no acute distress GI Inspection: normal to inspection Palpation: soft, nontender Other: Incisions: C/D/I Assessment AND Plan Problems 1. Postoperative visit Z48.89 Plan routine care doing well Coding Level of Care Code No Charge Diagnoses Postoperative visit Z48.89 02/17/18 0641 <Electronically signed by Magaly Villarreal MD> Date Magaly Villarreal MD Cosign Signature: Date (if applicable) CC: INTERNAL MEDICINE Observed: 02/11/2018 Status: F Source: [place] OFFICE VISIT 5:14 PM [facility] Internal Medicine [address] [place] [address] [address] [place] [address] OFFICE VISIT Date of Service: 02/09/18 MR#: [id number] Acct: [id number] Name: MANISHA MARCUS I Rep #: [id number] : 1975 Provider: Glory Gallagher MD Age/Sex: 42/F Location: [facility] Status: Signed Intake Vital Signs02/09/18 Height 5 ft 7 in Intake Visit Reasons: EST PCP Chief Complaint: establish care Is patient in pain?: Yes (lower back to legs) Pain scale (1- 10): 7 Allergies ciprofloxacin [From Cipro] Allergy (Verified 02/02/18 13:13) Rash codeine Allergy (Verified 02/02/18 13:13) Anaphylaxis dexamethasone [From Decadron] Allergy (Verified 02/02/18 13:13) Other lamotrigine [From Lamictal] Allergy (Verified 02/02/18 13:13) Rash latex Allergy (Verified 02/02/18 13:13) Rash Medications Duloxetine Hcl [Cymbalta] 60 mg PO BID 09/30/16 [History Confirmed 02/02/18] dulaglutide 1.5 mg/0.5 mL subcutaneous pen injector 1.5 mg SC QWEEK 01/04/18 [History Confirmed 02/02/18] sitagliptin 50 mg tablet 50 mg PO DAILY 01/04/18 [History Confirmed 02/02/18] Losartan Potassium 100 mg PO DAILY 01/11/18 [History Confirmed 02/02/18] Metoprolol Succinate [Toprol Xl] 100 mg PO DAILY 01/11/18 [History Confirmed 02/02/18] Montelukast [Singulair] 10 mg PO PRN PRN 01/11/18 [History Confirmed 02/02/18] Tizanidine HCl 4 mg PO PRN PRN 01/11/18 [History Confirmed 02/02/18] Ferrous Sulfate 325 mg PO BIDCM #60 tab 01/13/18 [Rx Confirmed 02/02/18] multivitamin tablet 1 tab PO DAILY 01/19/18 [History Confirmed 02/02/18] Quetiapine Fumarate [Seroquel] 100 mg PO QHS 01/27/18 [History Confirmed 02/02/18] busPIRone [Buspar] 10 mg PO BID 01/27/18 [History Confirmed 02/02/18] Naproxen [Naprosyn] 250 - 500 mg PO Q8H PRN PRN #30 tab 01/28/18 [Rx Confirmed 02/02/18] Handicap Placard #1 ea 02/09/18 [Rx Confirmed 02/09/18] dicyclomine 20 mg tablet 40 mg PO .QID PRN tab 02/09/18 [History Confirmed 02/09/18] hydrocortisone 2.5 % topical ointment 1 applic TOPICAL QHS #28.35 g 02/09/18 [Rx Confirmed 02/09/18] walker See Dose Instructions .ROUTE .MEDSUPPLY #1 ea 02/09/18 [Rx Confirmed 02/09/18] Is last menstrual period known: Yes PFSH Medical History Bipolar 1 disorder (Chronic) IBS (irritable bowel syndrome) (Chronic) PTSD (post-traumatic stress disorder) (Chronic) Anxiety (Chronic) Chronic hypertension (Acute) Acute on chronic blood loss anemia (Acute) Iron deficiency anemia (Acute) Abnormal uterine bleeding (Chronic) Diabetes (Acute) Bipolar disorder (Inactive) Surgical History History of LAVH (Acute) History of appendectomy (Acute) History of breast biopsy (Acute) History of delivery (Acute) History of gastric bypass (Acute) History of orthopedic surgery (Acute) History of tonsillectomy (Acute) delivery delivered (Inactive) History of ankle surgery (Inactive) Hx of appendectomy (Inactive) Hx of breast reduction, elective (Inactive) Hx of gastric bypass (Inactive) Hx of tonsillectomy (Inactive) Family History Mother No problems noted. 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 She also has some complaints. She had previously followed up with a primary care physician in [facility]. She reports past medical history as listed above however most recently had been a hysterectomy due to significant uterine bleed with symptomatic anemia. Her most significant concern at this time is ongoing left lower extremity numbness/pain with occasional episodes of falls. Said to have been going on for 3 years. Has been to a chiropractor with only short-lived relief. Lumbar spine imaging done in the past with no overt concerns per patient. Pain is said to typically start in the mid buttock and radiate down her left leg. She is also concerned about worsening shortness of breath which is said to be worse with activity. Occasional palpitations. She denies any known history of heart disease however has a positive family history of heart disease. Recent episode of bilateral flank rash which is said to be significantly itchy. Somewhat relieved with Benadryl and OTC hydrocortisone cream. She denies any known precipitating factor. No prior history of similar rash. ROS Const Constitutional: No weight change, body ache, chills, fatigue, sleep problems, fever(s), change in appetite, snoring, weakness, frequent falls, headache(s) or excessive sweating Eyes Eyes: No change in vision, eye pain, light sensitivity or blurry vision ENT ENT: No headache(s), abnormal hearing, ear pain, tinnitus, nasal congestion, sore throat or neck pain Resp Respiratory: Positive for shortness of breath; no snoring, cough or wheezing Cardio Cardiology: Positive for palpitations; no excessive sweating, chest pain at rest, chest pain with exertion, shortness of breath, dyspnea on exertion, orthopnea or lightheadedness Gastro GI: Positive for incontinent of stools; no abdominal pain, constipation, vomiting, nausea/dyspepsia or cramping Genitourinary-Female: No burning urination, painful urination, urinary incontinence, urinary frequency, abnormal vaginal bleeding, pelvic pain or other Musc Musculoskeletal: Positive for numbness (whole left leg, worse in foot.), tingling and other (left leg pain into buttock); no neck pain, abnormal walking, joint pain, back pain or limited range of motion Skin Skin: No redness, dry skin, itching, lesions, wounds or rash Neuro Neurology: Positive for numbness (whole left leg, worse in foot.) and tingling; no weakness, frequent falls, headache(s), abnormal hearing, abnormal walking, abnormal speech, dizziness or memory loss Psych Psychiatric: No change in appetite, No memory loss, No anxiety, No depression, No Thoughts of harming yourself/Others Endo Endocrine: No fatigue, excessive sweating, cold intolerance, increased thirst/drinking, heat intolerance, flushing or increased hunger Aller/Imm Allergy/Immunologic: No wheezing, itchy eyes, hives or seasonal allergy symptoms Santana/Lymp Hematologic/Lymphatic: No easy bleeding, easy bruising or enlarged lymph nodes Exam Const General: cooperative, no acute distress Orientation: alert, awake, oriented x3 HENMT Head: atraumatic, normal to inspection, normocephalic Ears: hearing grossly normal bilaterally Neck Neck: normal visual inspection, full ROM, no lymphadenopathy Neck mass: No Thyroid: thyroid normal Resp Effort AND Inspection: normal respiratory effort, able to speak in complete sentences Auscultation: Bilateral: Clear to Auscultation Cardio Rate: regular rate Rhythm: regular rhythm Heart Sounds: S1 normal, S2 normal GI Palpation: soft, no hepatosplenomegaly Neuro General: alert, awake, oriented x3, moves all extremities, CN's II-XI intact bilaterally Extrem General: no clubbing, cyanosis or edema Psych Appearance: grossly normal Mental Status: mental status grossly normal Mood: congruent mood Affect: normal affect Assessment AND Plan 1. Sciatica of left side M54.32 Plan Symptoms concerning for piriformis syndrome. Interventions done so far without significant improvement. Referred to Ortho. Medications New: 2. Shortness of breath R06.02 Plan Chronic NSAID to be worsening. Worse with activity. No known history of heart or lung disease. Also reports occasional palpitations 2D echo ordered. Follow-up with results. Orders Orders: 3. Dermatitis L30.9 Plan Appears to be contact dermatitis. Modifications discussed. 2.5% hydrocortisone ointment twice daily as needed. This note was generated with AppFirst dictation software. It may contain incorrect words, spelling, and punctuation that were not noted in checking the note before signing. Plan Detail Other Orders Orders: Referrals: Other Medications New: Coding Level of Care Code Off vis,est,level 3 Diagnoses Sciatica of left side M54.32 Shortness of breath R06.02 Dermatitis L30.9 02/11/18 1714 <Electronically signed by Glory Gallagher MD> Date Glory Gallagher MD Cosigner Signature: Date (if applicable) CC: CBC W/DIFF, AUTOMATED Collected: 02/02/2018 Status: F Source: [place] 2:[address] [facility] REPOSITORY TYPE CODE TESTS RESULT OUT OF RANGE REFERENCE UNITS LAB L100.1000 4.4-11.0 K/mm3 Normal WBC 6.9 LAB L100.1200 4.2-5.4 M/mm3 Normal RBC 4.43 LAB L100.1300 12.0-15.0 g/dl Low HGB 10.3 LAB L100.1400 37-47 % Low HCT 33.9 LAB L100.1500 81-99 fL Low MCV 76.5 LAB L100.1600 27.0-32.0 pg Low MCH 23.3 LAB L100.1700 32-36 g/gl Low MCHC 30.4 LAB L100.1900 150-450 K/mm3 Normal PLT 349 LAB L100.2000 6.2-12.0 fl Normal MPV 9.3 LAB L100.2100 47-70 % High NEUT% 80.3 LAB L100.2200 19-41 % Low LY% 11.7 LAB L100.2300 0-10 % Normal MONO% 4.8 LAB L100.2400 0-5 % Normal EO% 2.8 LAB L100.2500 0-1 % Normal BASO% 0.4 LAB L100.2550 0.0-0.9 % Normal IM GRAN % 0.000 Result Comment: IG% - Immature Granulocytes (promyelocytes, myelocytes and metamyelocytes) > 1% indicates that a LEFT SHIFT is Present. LAB L100.2620 2.0-7.7 X10 3/uL Absolute Neut Normal 5.5 LAB L100.2720 0.83-4.51 X10 3/ul Low Absolute Lymph 0.80 LAB L100.7300 ANISO Normal 3+ LAB L100.7600 HYPOCHROMASIA Normal 2+ Performed By: #### L100.0100 #### [facility] [address] [place], [place], [address] THYROID STIM HORMONE Collected: 02/02/2018 Status: F Source: [place] (TSH) 2:[address] [facility] REPOSITORY TYPE CODE TESTS RESULT OUT OF RANGE REFERENCE UNITS LAB L501.9520 0.358-3.74 uIU/mL Normal TSH 0.58 Performed By: #### L501.9520 #### [facility] [address] [place], [place], [address] [facility] OFFICE VISIT Observed: 02/02/2018 Status: F Source: [place] REPORT 1:[address] [facility] REPOSITORY [facility] [place] [address] [place] [address] OFFICE VISIT Date of Service: 02/02/18 MR#: [id number] Acct: [id number] Name: MANISHA MARCUS I Rep #: [id number] : 1975 Provider: Magaly Villarreal MD Age/Sex: 42/F [place] [facility] [place]: Signed Intake Vital Signs02/02/18 Height 5 ft 6 in 02/02/18 Weight: 198 lb 2 oz 02/02/18 Body Mass Index (BMI) 31.9 02/02/18 Blood Pressure 132/76 H H 02/02/18 Temperature 98.4 F Intake Visit Reasons: Urinary issue/back pain, concern with incision Chief Complaint: UA,back pain, Incision check Terrazzo Finisher Required: No Is patient in pain?: Yes Allergies ciprofloxacin [From Cipro] Allergy (Verified 02/02/18 13:13) Rash codeine Allergy (Verified 02/02/18 13:13) Anaphylaxis dexamethasone [From Decadron] Allergy (Verified 02/02/18 13:13) Other lamotrigine [From Lamictal] Allergy (Verified 02/02/18 13:13) Rash latex Allergy (Verified 02/02/18 13:13) Rash Medications Duloxetine Hcl [Cymbalta] 60 mg PO BID 09/30/16 [History Confirmed 02/02/18] dulaglutide 1.5 mg/0.5 mL subcutaneous pen injector 1.5 mg SC QWEEK 01/04/18 [History Confirmed 02/02/18] sitagliptin 50 mg tablet 50 mg PO DAILY 01/04/18 [History Confirmed 02/02/18] Losartan Potassium 100 mg PO DAILY 01/11/18 [History Confirmed 02/02/18] Metoprolol Succinate [Toprol Xl] 100 mg PO DAILY 01/11/18 [History Confirmed 02/02/18] Montelukast [Singulair] 10 mg PO PRN PRN 01/11/18 [History Confirmed 02/02/18] Tizanidine HCl 4 mg PO PRN PRN 01/11/18 [History Confirmed 02/02/18] Ferrous Sulfate 325 mg PO BIDCM #60 tab 01/13/18 [Rx Confirmed 02/02/18] multivitamin tablet 1 tab PO DAILY 01/19/18 [History Confirmed 02/02/18] Quetiapine Fumarate [Seroquel] 100 mg PO QHS 01/27/18 [History Confirmed 02/02/18] busPIRone [Buspar] 10 mg PO BID 01/27/18 [History Confirmed 02/02/18] Ibuprofen [Motrin] 600 mg PO Q6H PRN PRN #30 tab 01/28/18 [Rx Confirmed 02/02/18] Naproxen [Naprosyn] 250 - 500 mg PO Q8H PRN PRN #30 tab 01/28/18 [Rx Confirmed 02/02/18] Oxycodone HCl/Acetaminophen [Percocet 5-325] 1 - 2 tab PO Q4H PRN PRN 7 Days #28 tab 01/28/18 [Rx Confirmed 02/02/18] Is last menstrual period known: No Post menopausal: No Patient : No : No PFSH Medical History Chronic hypertension (Acute) Acute on chronic blood loss anemia (Acute) Iron deficiency anemia (Acute) Abnormal uterine bleeding (Chronic) Diabetes (Acute) Bipolar disorder (Inactive) Surgical History History of LAVH (Acute) delivery delivered (Inactive) History of ankle surgery (Inactive) Hx of appendectomy (Inactive) Hx of breast reduction, elective (Inactive) Hx of gastric bypass (Inactive) Hx of tonsillectomy (Inactive) Family History Mother No problems noted. 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 No dysuria. Pregancy History 6 Elective abortions Hx Para 3 Spontaneous abortions Past Pregnancies Del. 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 Abdomen is soft with yellow ecchymosis around unbilicus. 2cm firmness at site but otherwise abdomen is soft and nontender. No fever today. Results BMS[facility] Office Urine Color YELLOW Last Edit by Natasha Wyman on 02/02/18 13:19 Office Urine Clarity Clear Last Edit by Natasha Wyman on 02/02/18 13:19 Assessment AND Plan Problems 1. Postoperative pain G89.18 Plan - KENY Severino Patient is concerned with MRSA since had today. Reassured do not feel infectious process. Afebrile. UA negative except blood which is expected. Abdomen soft, no erythema. Will get CBC Orders Orders: Coding Level of Care Code No Charge Diagnoses Postoperative pain G89.18 02/02/18 1352 <Electronically signed by Magaly Villarreal MD> Date Magaly Villarreal MD 02/02/18 1350<Electronically signed by Deirdre BUSTILLO> Cosigner Signature: Date (if applicable) Deirdre Li CC: Observed: 02/02/2018 Status: F Source: [place] CULTURE, URINE 12:[address] [facility] REPOSITORY Urine Culture ORGANISM 1: Streptococcus agalactiae (B) [place] Count 25,000-50,000 Streptococcus agalactiae (B): REACTION Ampicillin $ <=0.25 S Benzylpenicillin NF <=0.06 S Ceftriaxone $ <=0.12 S Inducable Clindamycin Resistan - Linezolid $$$$ <=2 S Vancomycin $ 1 S (NF) indicates non-formulary drug at [facility]. Approval by Infectious Disease Specialist required before non-formulary drugs may be ordered and/or dispensed. * CLSI guidelines does not recommend testing of cephalosporins. This interpretation is deduced from Beta-lactam/penicillin results. Performed By: #### M100.0650 #### [facility] [address] [place], [address] OPERATIVE REPORT Observed: 01/29/2018 Status: F Source: [place] 8:[address] [facility] REPOSITORY [facility] Medical Records Department [address] [place] [address] Operative Report 01/28/18 1158 MR#: [id number] Acct: [id number] Name: MANISHA MARCUS I Rep #: [id number] : 1975 42 From: Magaly Villarreal MD PCP: OUT OF TOWN DOCTOR Status: DEP [facility] Y Location: [facility] Problem List (1) Chronic hypertension Status: Acute (2) Acute on chronic blood loss anemia Status: Acute (3) Iron deficiency anemia Status: Acute Qualifiers: (4) Abnormal uterine bleeding Status: Chronic Comment: plan lavh bs cysto, plan Shaka technique for abdominal entry (5) Diabetes Status: Acute Report of Operation Date of Procedure: 01/28/18 Pre-Operative Diagnosis: aub Post-Operative Diagnosis: same Surgery/Procedure Performed:: lavh bs cysto Description of Surgical Findings:: extensive vesicouterine adhesions passenger conductor: Noa Hwakins Type of Anesthesia:: General Special Medications: none Specimen's removed: uterus tubes Drains: san Estimated Blood Loss (mL): 50 Fluids Replaced: crystalloid Description of Procedure: Patient received preoperative antibiotics and SCDs were on preoperatively. Patient was taken back to the operating room and placed in the dorsal lithotomy position. General anesthesia was induced and patient was prepped and draped in normal sterile fashion. Uterine manipulator was placed inside the uterus and San catheter placed in the bladder. The umbilicus was grasped with towel clamps and an intraumbilical incision was made after injecting with quarter percent Marcaine and a Veress needle entered into the abdomen confirmed to be intra-abdominal with a low opening pressure. Abdomen was insufflated with CO2 gas and the Veress needle removed and the 5 mm trocar was placed under direct visualization without complication. Right and left lower quadrants were transilluminated and injected with quarter percent Marcaine and 5 mm ports placed under direct visualization. Pelvis was well visualized see operative findings for additional information. Bilateral fallopian tubes were identified and transected with the LigaSure device across the mesosalpinx to the level of the utero-ovarian ligament which was also transected with the LigaSure device. The broad ligament was opened up by transecting the round ligament bilaterally and skeletonizing the uterine vessels bilaterally and creating a bladder flap using the LigaSure device. there were extensive adhesions noted in the vesicouterine area and these were carefully dissected both sharply and bluntly, and by using the monopolar scissors. The uterine arteries were transected bilaterally with good visualization of the bladder and the ureters were seen to be inferior lateral to the operative area. Attention was then paid to the vaginal portion of the procedure and the cervix was grasped with William clamps and circumferentially injected with dilute vasopressin. A circumferential incision was made and the vaginal mucosa was mobilized off posteriorly and the cul-de-sac entered into sharply and a longneck speculum placed. The anterior cul-de-sac was then identified and entered into sharply. The uterosacral ligaments were clamped cut and suture ligated with 0 Monocryl bilaterally followed by the cardinal ligaments which were clamped cut and suture ligated bilaterally with 0 Monocryl. The uterus serially descended and was removed without difficulty with minimal morcellation. Pelvic sidewall pedicles were checked and noted to have excellent hemostasis. The vaginal mucosa was reapproximated incorporating the posterior peritoneum. This was reapproximated using 0 Vicryl [id number] sutures. Excellent hemostasis was noted. The cystoscopy was then performed and bilateral ureteral strong spray was noted and the bladder was noted to have no abnormality or lesions seen. San catheter was replaced and then attention paid to the abdominal portion of the procedure again. The pelvis and cul-de-sac was well visualized and no significant active bleeding noted but some raw areas were seen on the peritoneum and therefore Arash was applied. Pressure was taken down and the areas visualized and noted of excellent hemostasis. All ports were removed under direct visualization without complication and the abdomen was desufflated of air. The instruments removed from the abdomen and the vagina vaginal sweep was negative. Port sites on the abdomen were closed with 4-0 Monocryl interrupted sutures and Steri's and windows were applied. She was awoken and taken recovery in stable condition. Grafts/Implants Used: none - Complications none - Admit VTE Documentation VTE Present on Admission: No VTE Mechan Device Prophylaxis: SCD's 01/29/182032 <Electronically signed by Magaly Villarreal MD> Date Magaly Villarreal MD CC: OUT OF TOWN DOCTOR; Magaly Villarreal MD Signed CBC-COMPLETE BLOOD CNT Collected: 01/29/2018 Status: F Source: [place] NO DIFF 6:[address] [facility] REPOSITORY TYPE CODE TESTS RESULT OUT OF RANGE REFERENCE UNITS LAB L100.1000 4.4-11.0 K/mm3 Normal WBC 4.4 LAB L100.1200 4.2-5.4 M/mm3 Low RBC 3.49 LAB L100.1300 12.0-15.0 g/dl Low HGB 8.1 LAB L100.1400 37-47 % Low HCT 26.7 LAB L100.1500 81-99 fL Low MCV 76.5 LAB L100.1600 27.0-32.0 pg Low MCH 23.2 LAB L100.1700 32-36 g/gl Low MCHC 30.3 LAB L100.1900 150-450 K/mm3 Normal PLT 287 LAB L100.2000 6.2-12.0 fl Normal MPV 9.8 Performed By: #### L100.0500, L100.4500 #### [facility] [address] [place], [place], [id number] DIFFERENTIAL COMMENT Collected: 01/29/2018 Status: F Source: [place] 6:[address] [facility] REPOSITORY TYPE CODE TESTS RESULT OUT OF RANGE REFERENCE UNITS LAB L100.4500 Normal SMEAR COMMENT COMMENT Result Comment: SLIDE SCANNED - DIMORPHIC RBC POPULATION NOTED. Performed By: #### L100.0500, L100.4500 #### [facility] [address] [place], [place], [id number] BEDSIDE GLUCOSE Collected: 01/29/2018 Status: F Source: [place] 6:[address] [facility] REPOSITORY TYPE CODE TESTS RESULT OUT OF REFERENCE UNITS RANGE LAB L501.080 70-110 mg/dL High BEDSIDE GLU 180 Result Comment: MANAGEMENT OF PATIENT CARE PER NURSING PROTOCOL Performed By: #### L501.080 #### [facility] Point of Care [address] [place] [address] BEDSIDE GLUCOSE Collected: 01/28/2018 Status: F Source: [place] 11:[address] [facility] REPOSITORY TYPE CODE TESTS RESULT OUT OF REFERENCE UNITS RANGE LAB L501.080 70-110 mg/dL High BEDSIDE GLU 201 Result Comment: MANAGEMENT OF PATIENT CARE PER NURSING PROTOCOL Performed By: #### L501.080 #### [facility] Point of Care [address] [place] [address] BEDSIDE GLUCOSE Collected: 01/28/2018 Status: F Source: [place] 6:[address] [facility] REPOSITORY TYPE CODE TESTS RESULT OUT OF REFERENCE UNITS RANGE LAB L501.080 70-110 mg/dL High BEDSIDE GLU 222 Result Comment: MANAGEMENT OF PATIENT CARE PER NURSING PROTOCOL Performed By: #### L501.080 #### [facility] Point of Care [address] [place] [address] BEDSIDE GLUCOSE Collected: 01/28/2018 Status: F Source: [place] 2:[address] [facility] REPOSITORY TYPE CODE TESTS RESULT OUT OF REFERENCE UNITS RANGE LAB L501.080 70-110 mg/dL High BEDSIDE GLU 218 Result Comment: MANAGEMENT OF PATIENT CARE PER NURSING PROTOCOL Performed By: #### L501.080 #### [facility] Point of Care [address] [place] [address] DISCHARGE INSTRUCTION Observed: 01/28/2018 Status: F Source: [place] 12:06 PM [facility] Medical Records Department [address] [place] [address] Instructions for Home/Discharge Instructions 01/28/18 1205 MR#: [id number] Acct: [id number] Name: MANISHA MARCUS I Rep #: [id number] : 1975 42 From: Magaly Villarreal MD PCP: OUT OF TOWN DOCTOR Status: REG SDC Discharge Diet: No Restrictions Discharge Activity: Return to Normal Activity, May Not Drive, May Shower May resume sexual activity in: 6-8 weeks Call your doctor if your incision/area has: Continuous Slow Oozing, Sudden Increased Bleeding, Increased Pain/ Swelling, Increased Redness, Foul Smelling Discharge Call your doctor if you observe: Fever of 101 or Higher, Inability to urinate, Inability to have a bowel movement, Using more than one pad per hour Allergies/Adverse Reactions: Allergies ciprofloxacin [From Cipro] Allergy (Verified 01/27/18 13:22) Rash codeine Allergy (Verified 01/27/18 13:22) Anaphylaxis dexamethasone [From Decadron] Allergy (Verified 01/27/18 13:22) Other BODY FELT LIKE IT WAS ON FIRE lamotrigine [From Lamictal] Allergy (Verified 01/27/18 13:22) Rash latex Allergy (Verified 01/27/18 13:22) Rash Medications to take at Discharge Duloxetine Hcl [Cymbalta] 60 mg PO BID 09/30/16 dulaglutide 1.5 mg/0.5 mL subcutaneous pen injector 1.5 mg SC QWEEK 01/04/18 sitagliptin 50 mg tablet 50 mg PO DAILY 01/04/18 Losartan Potassium 100 mg PO DAILY 01/11/18 Metoprolol Succinate [Toprol Xl] 100 mg PO DAILY 01/11/18 Montelukast [Singulair] 10 mg PO PRN PRN 01/11/18 Tizanidine HCl 4 mg PO PRN PRN 01/11/18 Ferrous Sulfate 325 mg PO BIDCM #60 tab 01/13/18 multivitamin tablet 1 tab PO DAILY 01/19/18 Quetiapine Fumarate [Seroquel] 100 mg PO QHS 01/27/18 busPIRone [Buspar] 10 mg PO BID 01/27/18 Ibuprofen [Motrin] 600 mg PO Q6H PRN PRN #30 tablet 01/28/18 Naproxen [Naprosyn] 250 - 500 mg PO Q8H PRN PRN #30 tablet 01/28/18 Oxycodone HCl/Acetaminophen [Percocet 5-325] 1 - 2 tablet PO Q4H PRN PRN 7 Days #28 tablet 01/28/18 The following prescriptions were given: Oxycodone HCl/Acetaminophen [Percocet 5-325] 1 - 2 tablet PO Q4H PRN PRN 7 Days #28 tablet PRN Reason: Moderate-Severe pain Ibuprofen [Motrin] 600 mg PO Q6H PRN PRN #30 tablet PRN Reason: Pain Naproxen [Naprosyn] 250 - 500 mg PO Q8H PRN PRN #30 tablet PRN Reason: MILD PAIN Primary Care Physician: [facility] Doctor,Out of [Primary Care Provider] - Test Results: Test results from this visit will be discussed in further detail at your follow-up appointment, if applicable. Please Follow Up With: Magaly Villarreal MD - [phone] 01/28/18 1206 <Electronically signed by Magaly Villarreal MD> Date Magaly Villarreal MD CC: OUT OF TOWN DOCTOR HISTORY AND PHYSICAL Observed: 01/28/2018 Status: F Source: [place] EXAM 11:[address] [facility] REPOSITORY [facility] Medical Records Department [address] [place] [address] History and Physical 01/28/18 0534 MR#: [id number] Acct: [id number] Name: MANISHA MARCUS I Rep #: [id number] : 1975 42 From: Magaly Villarreal MD PCP: OUT OF TOWN DOCTOR Status: [facility] Y Location: [place] [address] - Problem List (1) Chronic hypertension Status: Acute (2) Acute on chronic blood loss anemia Status: Acute (3) Iron deficiency anemia Status: Acute Qualifiers: (4) Abnormal uterine bleeding Status: Chronic Comment: plan lavh bs cysto, plan Shaka technique for abdominal entry (5) Diabetes Status: Acute History and Physical Date of Admission: 01/28/18 Vital Signs 01/19/18 Height 5 ft 6 in 01/19/18 Weight: 204 lb 2 oz 01/19/18 Body Mass Index (BMI) 32.9 01/19/18 Blood Pressure 133/71 H Intake Visit Reasons: Follow up hospital stay Terrazzo Finisher Required: No Is patient in pain?: No Allergies ciprofloxacin [From Cipro] Allergy (Verified 01/19/18 17:02) Rash codeine Allergy (Verified 01/19/18 17:02) Anaphylaxis dexamethasone [From Decadron] Allergy (Verified 01/19/18 17:02) Other lamotrigine [From Lamictal] Allergy (Verified 01/19/18 17:02) Rash latex Allergy (Verified 01/19/18 17:02) Rash Medications Duloxetine Hcl [Cymbalta] 60 mg PO BID 09/30/16 [History Confirmed 01/19/18] dulaglutide 1.5 mg/0.5 mL subcutaneous pen injector 1.5 mg SC QWEEK 01/04/18 [History Confirmed 01/19/18] sitagliptin 50 mg tablet 50 mg PO DAILY 01/04/18 [History Confirmed 01/19/18] Losartan Potassium 100 mg PO DAILY 01/11/18 [History Confirmed 01/19/18] Metoprolol Succinate [Toprol Xl] 100 mg PO DAILY 01/11/18 [History Confirmed 01/19/18] Mirtazapine 30 mg PO QHS 01/11/18 [History Confirmed 01/19/18] Montelukast [Singulair] 10 mg PO DAILY 01/11/18 [History Confirmed 01/19/18] Tizanidine HCl 4 mg PO PRN PRN 01/11/18 [History Confirmed 01/19/18] Ferrous Sulfate 325 mg PO BIDCM #60 tab 01/13/18 [Rx Confirmed 01/19/18] multivitamin tablet 1 tab PO DAILY 01/19/18 [History Confirmed 01/19/18] norethindrone acetate 5 mg tablet 5 mg PO DAILY #35 tab 01/21/18 [Rx] Post menopausal: No Patient : No : No PFSH Medical History Bipolar disorder (Chronic) hypertension (Acute) Diabetes (Acute) Surgical History Hx of tonsillectomy (Chronic) Hx of gastric bypass (Chronic) History of ankle surgery (Chronic) Hx of appendectomy (Acute) Hx of breast reduction, elective (Chronic) delivery delivered (Chronic) Family History Mother No problems noted. 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 she has had several very heavy irregular menses the last few cycles and was transfused several untis during her admission for a low hg of 4. she hasn't had any bleeding since, and feel better bt still overall fatigued and uncomfortable. Female Reproductive History Questions: Metorrhagia: Yes Pregancy History 6 Elective abortions Hx Para 3 Spontaneous abortions Hx # Term Pregnancies Ectopic pregnancies Hx # Pregnancies Multiple births # of living children Past Pregnancies Del. Date Name GA/Weeks Outcome Route Bth Weight Infant Gen Labor Lgth Anesthesia Del Locatn Provider FOB Unknown 1998 Kamlesh live - full term Unknown 2003 Meet live - full term Unknown 2016 Susan live - full term ROS Const Constitutional: Reports as per HPI and fatigue Cardio Card: Reports system reviewed and no additional complaints, except as docu Resp Resp: Reports shortness of breath with activity and system reviewed and no additional complaints, except as docu GI GI: Reports as per HPI and system reviewed and no additional complaints, except as docu : Reports as per HPI Exam Const General: cooperative, healthy appearing, comfortable, no acute distress, well developed Nutritional Appearance: average body habitus Orientation: alert [facility] Head: normal to inspection, normocephalic Ears: hearing grossly normal bilaterally, external ears normal Nose: external nose normal, nares normal Face and sinus: normal facial exam Neck Neck: normal visual inspection, trachea midline, no lymphadenopathy Thyroid: thyroid normal Resp Effort AND Inspection: normal respiratory effort Musc Other: gross motor intact no deficits, full bilateral strength Skin General: no rashes or lesions noted Neuro Motor: muscle tone normal throughout Assessment AND Plan Problems 1. Acute on chronic Symptomatic anemia 2. Iron deficiency anemia due to chronic blood loss D50.0 3. Abnormal uterine bleeding N93.9 plan lavh bs cysto, plan Shaka technique for abdominal entry Plan discussed plan for hysterecotmy, plan iron supplement until then, aygestin for breakthrough bleeding. discussed surgical risks including risks of anesthesia, infection, bleeding, injury to bowel, bladder or blood vessels, and patient wishes to proceed with surgery. US FINDINGS: The uterus is anteverted and is in a midline position. The uterus measures 12.7 cm. Normal uterine cervix. The endometrium measures 4 mm in thickness, and is hyperechoic. There is no demonstrated endometrial mass. There is no demonstrated myometrial mass. I.U.D. - The patient does not have an I.U.D. The right ovary is visualized. The right ovary measures 2.3 x 1.5 x 1.4 cm. There is no right ovarian cyst or ovarian mass. There is no visualized right adnexal mass or complex lesion. There is normal arterial and normal venous vascularity. The left ovary is visualized. The left ovary measures 3.7 x 2.0 x 1.7 cm. There is no left ovarian cyst or ovarian mass. There is no visualized left adnexal mass or complex lesion. There is normal arterial and normal venous vascularity. There is no fluid in the cul-de-sac. The bladder is sonographically normal US/Pelvic (Non ) IMPRESSION: Normal female pelvis. UPDATE- I have seen the patient and performed any clinically relevant updates to the history and physical exam. Magaly Villarreal MD 01/28/18 1142 <Electronically signed by Magaly Villarreal MD> Date Magaly Villarreal MD Cosigner Signature: Date (if applicable) CC: OUT OF TOWN DOCTOR; Magaly Villarreal MD Signed HYSTERECTOMY SPECIMEN Observed: 01/28/2018 Status: F Source: [place] 10:[address] [facility] REPOSITORY Patient: MANISHA MARCUS I : 1975 (42/F) Acct Num: [id number] Phys: Cherelle COVINGTON,Magaly Unit Num: [id number] Loc: [facility] Specimen: [id number] Received: 01/29/18830 Spec Type: HYSTERECT TISSUES 1 TISSUES: Uterus, NOS COMMENT Immunohistochemistry ([id number]) supports the above diagnosis. Case has been reviewed in consultation with Dr. Saldivar who concurs with the above diagnosis. IDC:WALKER GROSS DESCRIPTION Received in fixative is one container labeled with the patient's name and designated uterus, cervix and bilateral fallopian tubes. The specimen consists of a hysterectomy specimen consisting of uterus with cervix and attached bilateral fallopian tubes. The uterus with cervix weighs 101 gm and measures 10 x 7 x 4.5 cm. The serosal surface is hernandez, glistening. The ectocervical mucosa is unremarkable. The external os is circular in contour. The endocervical canal measures 3 cm in length and the endocervical mucosa is hernandez, glistening and unremarkable. Sections of the cervix reveal a few cysts filled with mucoid material. The triangular endometrial cavity measures 6 cm in length and up to 2.5 cm in width. The endometrium is congested, hemorrhagic and measures 0.1 cm in thickness. Sections of the uterine wall do not reveal any mass lesion and measures 2 cm in thickness. The right fallopian tube measures 6.5 cm in length and 0.6 cm in diameter. It is interrupted in the middle consistent with previous tubal ligation. Sections reveal unremarkable cut surfaces. The left fallopian tube is similar appearance to right and measures 6 cm in length and 0.6 cm in diameter. Furnace Caretaker sections are submitted in eight cassettes as follows: 1 - anterior cervix, 2 - posterior cervix, 3 AND 4 - anterior uterine wall, 5 AND 6 - posterior uterine wall, 7 - right fallopian tube, 8 - left fallopian tube. / WALKER:sima 01/29/18 TC:1 CPT: 67820 HEADER OPERATION: Hysterectomy, lap-assisted vaginal, bilateral salpingectomy PRE-OP DIAGNOSIS: Abnormal uterine bleeding TISSUE SUBMITTED: Uterus, cervix and bilateral fallopian tubes MICROSCOPIC DESCRIPTION Slides are reviewed. MICROSCOPIC DIAGNOSIS Uterus, hysterectomy: Cervix - nabothian cyst and mild chronic inflammation. Endometrium - proliferative endometrium. Myometrium - focal superficial adenomyosis Right fallopian tube - no pathologic change.. 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 AM:sima 02/01/18 Signed Alexis Yury 02/02/18 <signature on file> Performed By: #### PHYST #### [facility] [address] [place], [address] BEDSIDE GLUCOSE Collected: 01/28/2018 Status: F Source: [place] 9:[address] [facility] REPOSITORY TYPE CODE TESTS RESULT OUT OF REFERENCE UNITS RANGE LAB L501.080 70-110 mg/dL High BEDSIDE GLU 128 Result Comment: MANAGEMENT OF PATIENT CARE PER NURSING PROTOCOL Performed By: #### L501.080 #### [facility] Point of Care [address] [facility] [place] [address] CBC-COMPLETE BLOOD CNT Collected: 01/28/2018 Status: F Source: [place] NO DIFF 9:[address] [facility] REPOSITORY TYPE CODE TESTS RESULT OUT OF RANGE REFERENCE UNITS LAB L100.1000 4.4-11.0 K/mm3 Normal WBC 5.0 LAB L100.1200 4.2-5.4 M/mm3 Normal RBC 4.54 LAB L100.1300 12.0-15.0 g/dl Low HGB 10.4 LAB L100.1400 37-47 % Low HCT 34.4 LAB L100.1500 81-99 fL Low MCV 75.8 LAB L100.1600 27.0-32.0 pg Low MCH 22.9 LAB L100.1700 32-36 g/gl Low MCHC 30.2 LAB L100.1900 150-450 K/mm3 Normal PLT 344 LAB L100.2000 6.2-12.0 fl Normal MPV 9.4 Performed By: #### L100.0500, L100.4500 #### [facility] [address] [place], [address] DIFFERENTIAL COMMENT Collected: 01/28/2018 Status: F Source: [place] 9:[address] [facility] REPOSITORY TYPE CODE TESTS RESULT OUT OF RANGE REFERENCE UNITS LAB L100.4500 Normal SMEAR COMMENT SCANNED Result Comment: 1+ HYPOCHROMIA 1+ MICROCYTES 2+ ANISOCYTOSIS Performed By: #### L100.0500, L100.4500 #### [facility] [address] [place], [address] ,URINE Collected: 01/28/2018 Status: F Source: [place] 9:[address] [facility] REPOSITORY TYPE CODE TESTS RESULT OUT OF REFERENCE UNITS RANGE LAB L400.8000 Negative Normal HCGUQUAL Negative Result Comment: Very dilute urine specimens, as indicated by a low specific gravity, may not contain vendor representatives levels of hCG. If is still suspected, a first morning urine specimen should be collected 48 hours later and tested. Performed By: #### L400.7600 #### [facility] [address] [facility] [place], [address] IMMUNOHISTOCHEMISTRY Observed: 01/28/2018 Status: F Source: [place] 12:[address] [facility] REPOSITORY Patient: MANISHA MARCUS I : 1975 (42/F) Acct Num: [id number] Phys: Magaly Villarreal MD Unit Num: [id number] Loc: [facility] Specimen: [id number] Received: 02/01/181203 Spec Type: IMMUNO TISSUES 1 TISSUES: Uterus, NOS - #8 SPECIMEN INFORMATION: Tissue Source: Uterus Clinical Info: Abnormal uterine bleeding Specimen Number: [id number] #8 CPT code: 45972, 88316 x12 METHODOLOGY: Deparaffinized sections of prefer/formalin-fixed tissue or PAP/DQ stained slides are incubated with monoclonal/polyclonal antibodies/oligonucleotide probes. Localization is made via biotin free immunoperoxidase method. Appropriate controls are performed and reacted as expected. Results on target cell population are indicated in the following table: RESULTS: ANTIBODY / CLONE RESULT Block 8 ER (6F11) positive, >95% AE1-3 (AE1/AE3/PCK26) positive Actin (1A4) positive Vimentin (V9) positive Myosin (simms1) positive Desmin (CE-R-11) positive S-100 (4C4.9) negative CD56 (123C3.D5) positive Chromo (LK2H10) negative Synapto (polyclonal) negative NSE Neuron Specific Enolase negative Macro (HAM-56) negative CALRET (polyclonal) negative These tests were developed and their performance characteristics determined by [facility]. They may not have been cleared or approved by the U.S. Food and Drug Administration. The FDA has determined that such clearance or approval is not necessary. INTERPRETATION: Uterus, left fallopian tube: Consistent with hilus cell hyperplasia. AM:sima 02/02/18 Case has been reviewed in consultation with Dr. Saldivar who concurs with the above diagnosis. IDC:[facility] [address] [address] Signed Alexis Yury 02/02/18 <signature on file> Performed By: #### PIMM #### [facility] [address] [place] [address]. [place], [place], [address] HEMOGLOBIN A1C Collected: 01/27/2018 Status: F Source: [place] 2:[address] [facility] REPOSITORY TYPE CODE TESTS RESULT OUT OF RANGE REFERENCE UNITS LAB L501.9985 4.2-6.3 % High HGB A1C 6.4 Performed By: #### L501.9985 #### [facility] [address] [place] [address]. [place], [place], [address] PROTHROMBIN TIME W/INR Collected: 01/27/2018 Status: F Source: [place] 2:[address] [facility] REPOSITORY TYPE CODE TESTS RESULT OUT OF RANGE REFERENCE UNITS LAB L300.4150 11.7-14.9 SECONDS Normal PROTIME 13.1 LAB L300.4200 Normal INR 1.0 Performed By: #### L300.3900, L300.4310 #### [facility] [address] [place] [address]. [place], [address] PARTIAL THROMBOPLAST Collected: 01/27/2018 Status: F Source: [place] TIME 2:[address] [facility] REPOSITORY TYPE CODE TESTS RESULT OUT OF REFERENCE UNITS RANGE LAB L300.4310 24.1-36.2 Seconds High PTT 51.9 Performed By: #### L300.3900, L300.4310 #### [facility] [address] [place], [address] TYPE AND SCREEN Collected: 01/27/2018 Status: F Source: [place] 2:[address] [facility] REPOSITORY Order Comment: CMV NEG?* N Give When? Type AND Hold Irradiated? N Leukodepleted? Y Reason for Type AND Screen/Red Cells: ANEMIA TYPE CODE TESTS RESULT OUT OF RANGE REFERENCE UNITS LAB B10.0800 B Normal BLOOD TYPE GEL POSITIVE LAB B100.4000 Normal Antibody NEGATIVE Screen Performed By: #### B101.7450 #### [facility] [address] [place], [address] SURGERY VISIT REPORT Observed: 01/25/2018 Status: F Source: [place] 1:[address] [facility] REPOSITORY [facility] [address] [place] [address] OFFICE VISIT Date of Service: 01/25/18 MR#: [id number] Acct: [id number] Name: AMRITMANISHA Moraima Rep #: [id number] : 1975 Provider: Iris Sinclair MD Age/Sex: 42/F Location: [facility] Status: Signed Intake Intake Visit Reasons: R Breast BX Terrazzo Finisher Required: No Is patient in pain?: No Allergies ciprofloxacin [From Cipro] Allergy (Verified 01/25/18 13:01) Rash codeine Allergy (Verified 01/25/18 13:01) Anaphylaxis dexamethasone [From Decadron] Allergy (Verified 01/25/18 13:01) Other lamotrigine [From Lamictal] Allergy (Verified 01/25/18 13:01) Rash latex Allergy (Verified 01/25/18 13:01) Rash Medications Duloxetine Hcl [Cymbalta] 60 mg PO BID 09/30/16 [History Confirmed 01/25/18] dulaglutide 1.5 mg/0.5 mL subcutaneous pen injector 1.5 mg SC QWEEK 01/04/18 [History Confirmed 01/25/18] sitagliptin 50 mg tablet 50 mg PO DAILY 01/04/18 [History Confirmed 01/25/18] Losartan Potassium 100 mg PO DAILY 01/11/18 [History Confirmed 01/25/18] Metoprolol Succinate [Toprol Xl] 100 mg PO DAILY 01/11/18 [History Confirmed 01/25/18] Mirtazapine 30 mg PO QHS 01/11/18 [History Confirmed 01/25/18] Montelukast [Singulair] 10 mg PO DAILY 01/11/18 [History Confirmed 01/25/18] Tizanidine HCl 4 mg PO PRN PRN 01/11/18 [History Confirmed 01/25/18] Ferrous Sulfate 325 mg PO BIDCM #60 tab 01/13/18 [Rx Confirmed 01/25/18] multivitamin tablet 1 tab PO DAILY 01/19/18 [History Confirmed 01/25/18] norethindrone acetate 5 mg tablet 5 mg PO DAILY #35 tab 01/21/18 [Rx Confirmed 01/25/18] PFSH Medical History Chronic hypertension (Acute) Acute on chronic blood loss anemia (Acute) Iron deficiency anemia (Acute) Abnormal uterine bleeding (Chronic) Diabetes (Acute) Bipolar disorder (Inactive) Surgical History delivery delivered (Inactive) History of ankle surgery (Inactive) Hx of appendectomy (Inactive) Hx of breast reduction, elective (Inactive) Hx of gastric bypass (Inactive) Hx of tonsillectomy (Inactive) Family History Mother No problems noted. 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 Patient did not go to the ER after her last appointment and was found to have a hemoglobin of 4.8 and did receive 4 units packed red blood cells. Patient also underwent an EGD and colonoscopy last week by me the EGD did not show any source of bleeding and a colonoscopy had a poor prep but no obvious bleeding was seen. Patient states that on she is scheduled to undergo a hysterectomy by Dr. Villarreal due to her heavy periods also been likely source of her anemia. Exam Const General: cooperative, comfortable, no acute distress, well developed Office Procedures Biopsy Provider Documentation Procedure: ultrasound-guided core biopsy Indications: For year-old female with the hypoechoic solid nodule at 4:00 in the right breast 3 cm from the nipple. Risk benefits were discussed the patient and she elected to proceed with ultrasound guided core biopsy with clip placement Description of procedure: Patient was brought into the ultrasound room in the right breast was marked. A timeout was completed verifying correct patient, procedure, site, specially, prior to beginning procedure. The right breast was prepped and draped in usual sterile fashion and using local anesthesia was obtained with 1% lidocaine with epi. The lesion was located with the ultrasound. Small incision was made with 11 blade to introduced the mammotome through the skin. Under ultrasound guidance multiple core samples were obtained using then 13-gauge mammotome and sent in formalin for pathology. The mammotome mammostar clip was then deployed into the biopsy cavity under ultrasound guidance and a picture was taken. Upon completion procedure hemostasis was obtained and a Steri- Strip and OpSite were placed. The patient tolerated the procedure well and was discharged from the breast imaging department good condition. Alert Registered Occupational Therapist Yes Biopsy Breast Biopsy: 14344 US Guidance Procedure Time Out Time Out Informed consent given: Yes Consent signed: Yes Time out checklist: patient, procedure, site marked/identified, positioning of patient, supplies available, allergies confirmed, team agrees on procedure Time out staff in room: Yes Time out verified: Yes Time out date: 01/25/18 Time out time: 13:15 Assessment AND Plan Problems 1. Mass of right breast N63.10 Plan Right breast biopsies was biopsied with ultrasound guidance and clip placed. Patient tolerated procedure well. Will call patient with pathology results. Plan Detail Follow Up Will call patient with pathology results. Coding Level of Care Code Attention Francisco Diagnoses Mass of right breast N63.10 Additional Codes Biopsy - Breast Biopsy: 86075 US Guidance (55836) Comment [id number] 01/25/18 1344 <Electronically signed by Iris Sinclair MD> Date Iris Kimble Signature: Date (if applicable) CC: Magaly Villarreal MD BREAST BIOPSY Observed: 01/25/2018 Status: F Source: [place] (CHOOSE SITE) 12:[address] [facility] REPOSITORY Patient: MANISHA AMRCUS I : 1975 (42/F) Acct Num: [id number] Phys: Yahir COVINGTON,Iris Unit Num: [id number] Loc: LABSPEC Specimen: [id number] Received: 01/26/18 - 1350 Spec Type: BREAST BX TISSUES 1 TISSUES: Right breast, NOS COMMENT Correlation with clinical, radiologic findings and appropriate follow up are necessary. Rebiopsy is suggested if clinically indicated. GROSS DESCRIPTION Received in fixative is one container labeled with the patient's name and designated right breast. The specimen consists of multiple elongated fragments of hernandez-yellow fibroadipose tissue that in aggregate measure 2 x 1.5 x 0.1 cm. The entire specimen is submitted in one cassette. / WALKER:sima 01/26/18 TC :4 CPT: 04892 HEADER OPERATION: Right breast core biopsy PRE-OP DIAGNOSIS: Right breast mass TISSUE SUBMITTED: Right breast tissue ISCHEMIC TIME: 2 seconds FIXATION TIME: 30.5 hours MICROSCOPIC DESCRIPTION Slides are reviewed. MICROSCOPIC DIAGNOSIS Right breast, core biopsy: Fragments of benign fatty breast tissue, no pathologic diagnosis. See comment. WALKER:sima 01/27/18 Signed Alistair Saldivar 01/27/18 <signature on file> Performed By: #### PBRBX #### [facility] [address] [place], [address] [address] OFFICE VISIT Observed: 01/23/2018 Status: F Source: [place] REPORT 6:22 AM [facility] [place] [address] [place] [address] OFFICE VISIT Date of Service: 01/19/18 MR#: [id number] Acct: [id number] Name: MANISHA MARCUS I Rep #: [id number] : 1975 Provider: Magaly Villarreal MD Age/Sex: 42/F [place] [facility] [place]: Signed Intake Vital Signs01/19/18 Height 5 ft 6 in 01/19/18 Weight: 204 lb 2 oz 01/19/18 Body Mass Index (BMI) 32.9 01/19/18 Blood Pressure 133/71 H Intake Visit Reasons: Follow up hospital stay Terrazzo Finisher Required: No Is patient in pain?: No Allergies ciprofloxacin [From Cipro] Allergy (Verified 01/19/18 17:02) Rash codeine Allergy (Verified 01/19/18 17:02) Anaphylaxis dexamethasone [From Decadron] Allergy (Verified 01/19/18 17:02) Other lamotrigine [From Lamictal] Allergy (Verified 01/19/18 17:02) Rash latex Allergy (Verified 01/19/18 17:02) Rash Medications Duloxetine Hcl [Cymbalta] 60 mg PO BID 09/30/16 [History Confirmed 01/19/18] dulaglutide 1.5 mg/0.5 mL subcutaneous pen injector 1.5 mg SC QWEEK 01/04/18 [History Confirmed 01/19/18] sitagliptin 50 mg tablet 50 mg PO DAILY 01/04/18 [History Confirmed 01/19/18] Losartan Potassium 100 mg PO DAILY 01/11/18 [History Confirmed 01/19/18] Metoprolol Succinate [Toprol Xl] 100 mg PO DAILY 01/11/18 [History Confirmed 01/19/18] Mirtazapine 30 mg PO QHS 01/11/18 [History Confirmed 01/19/18] Montelukast [Singulair] 10 mg PO DAILY 01/11/18 [History Confirmed 01/19/18] Tizanidine HCl 4 mg PO PRN PRN 01/11/18 [History Confirmed 01/19/18] Ferrous Sulfate 325 mg PO BIDCM #60 tab 01/13/18 [Rx Confirmed 01/19/18] multivitamin tablet 1 tab PO DAILY 01/19/18 [History Confirmed 01/19/18] norethindrone acetate 5 mg tablet 5 mg PO DAILY #35 tab 01/21/18 [Rx] Post menopausal: No Patient : No : No PFSH Medical History Bipolar disorder (Chronic) hypertension (Acute) Diabetes (Acute) Surgical History Hx of tonsillectomy (Chronic) Hx of gastric bypass (Chronic) History of ankle surgery (Chronic) Hx of appendectomy (Acute) Hx of breast reduction, elective (Chronic) delivery delivered (Chronic) Family History Mother No problems noted. 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 Follow up hospital stay: Details: MANISHA MARCUS is a 42 year old who presents for AUB and severe anemia secondary to acute blood loss follow up from admission and transfusion. she has had several very heavy irregular menses the last few cycles and was transfused several untis during her admission for a low hg of 4. she hasn't had any bleeding since, and feel better bt still overall fatigued and uncomfortable. Female Reproductive History Questions: Metorrhagia: Yes Pregancy History 6 Elective abortions Hx Para 3 Spontaneous abortions Past Pregnancies Del. DateName GA/Weeks Outcome Route Bth WeighInfant GeLabor LgtAnesthesiDel LocatProvider FOB t n h a n ROS Const Constitutional: Reports as per HPI and fatigue Cardio Card: Reports system reviewed and no additional complaints, except as docu Resp Resp: Reports shortness of breath with activity and system reviewed and no additional complaints, except as docu GI GI: Reports as per HPI and system reviewed and no additional complaints, except as docu : Reports as per HPI Exam Const General: cooperative, healthy appearing, comfortable, no acute distress, well developed Nutritional Appearance: average body habitus Orientation: alert HENMT Head: normal to inspection, normocephalic Ears: hearing grossly normal bilaterally, external ears normal Nose: external nose normal, nares normal Face and sinus: normal facial exam Neck Neck: normal visual inspection, trachea midline, no lymphadenopathy Thyroid: thyroid normal Resp Effort AND Inspection: normal respiratory effort Musc Other: gross motor intact no deficits, full bilateral strength Skin General: no rashes or lesions noted Neuro Motor: muscle tone normal throughout Assessment AND Plan Problems 1. Acute on chronic Symptomatic anemia 2. Iron deficiency anemia due to chronic blood loss D50.0 3. Abnormal uterine bleeding N93.9 plan lavh bs cysto, plan Shaka technique for abdominal entry Plan discussed plan for hysterecotmy, plan iron supplement until then, aygestin for breakthrough bleeding. Coding Level of Care Code Off vis,est,level 4 Diagnoses Acute on chronic Symptomatic anemia Iron deficiency anemia due to chronic blood loss D50.0 Iron deficiency anemia type: chronic blood loss Abnormal uterine bleeding N93.9 01/23/18 0622 <Electronically signed by Magaly Villarreal MD> Date [facility] Signature: Date (if applicable) CC: OPERATIVE REPORT - Observed: 01/20/2018 Status: F Source: [place] [facility] 10:[address] [facility] REPOSITORY [facility] Medical Records Department [address] [address] Operative Report - Endoscopy MR#: [id number] Acct: [id number] Name: MANISHA MARCUS Moraima Rep #: [id number] : 1975 42 From: Iris Sinclair MD PCP: OUT OF TOWN DOCTOR Status: [facility] [place] Patient Name: Manisha Marcus Procedure Date: 01/20/2018 9:42 AM Date of : 1975 Age: 42 Procedure: Colonoscopy Indications: Chronic diarrhea, Iron deficiency anemia Providers: Iris Sinclair MD Medicines: Monitored Anesthesia Care Patient Profile: Laboratory tests results include iron deficiency anemia. Last Colonoscopy: 5 years ago. Complications: No immediate complications. Procedure: Pre-Anesthesia Assessment: - Prior to the procedure, a History and Physical was performed, and patient medications and allergies were reviewed. The patient's tolerance of previous anesthesia was also reviewed. The risks and benefits of the procedure and the sedation options and risks were discussed with the patient. All questions were answered, and informed consent was obtained. Prior Anticoagulants: The patient has taken no previous anticoagulant or antiplatelet agents. ASA Grade Assessment: II - A patient with mild systemic disease. After reviewing the risks and benefits, the patient was deemed in satisfactory condition to undergo the procedure. - After I obtained informed consent, the scope was passed under direct vision. Throughout the procedure, the patient's blood pressure, pulse, and oxygen saturations were monitored continuously. The pediatric colonoscope was introduced through the anus and advanced to the cecum, identified by the ileocecal valve. The colonoscopy was performed with difficulty due to poor bowel prep with stool present. The patient tolerated the procedure well. The quality of the bowel preparation was poor. Scope In: 9:44:07 AM Scope Out: 10:02:09 AM Total Procedure Duration Time 0 hours 18 minutes 2 seconds Findings: Very poor visualization due to poor prep and liquid brown stool on all the mucosa, unable to see mucosa well even with irrigation. Unable to clean scope camera due to stool. Impression: - Preparation of the colon was poor, no obvious bleeding seen. - No specimens collected. - The exam was suboptimal due to patient preparation. [All Maneuvers]. Recommendation: - Discharge patient to home. - Continue present medications. - Repeat colonoscopy within 3 months because the bowel preparation was poor. Procedure Code(s): --- Professional --- 98517, Colonoscopy, flexible; diagnostic, including collection of specimen(s) by brushing or washing, when performed (separate procedure) Diagnosis Code(s): --- Professional --- K52.9, Noninfective gastroenteritis and colitis, unspecified D50.9, Iron deficiency anemia, unspecified CPT copyright 2017 [employer]. All rights reserved. The codes documented in this report are preliminary and upon director of partnerships review may be revised to meet current compliance requirements. MD Iris Mejias MD 01/20/2018 10:19:10 AM This report has been signed electronically. Number of Addenda: 0 Note Initiated On: 01/20/2018 9:42 AM 01/20/18 1019 Date Iris Sinclair MD Cosigner Signature: Date (if indicated) CC: OUT OF TOWN DOCTOR; Iris Sinclair MD Date Dictated: 01/20/18941 Date Transcribed: Rice Dryer Mechanic: STEVAN Signed OPERATIVE REPORT - Observed: 01/20/2018 Status: F Source: [facility] 10:12 AM [facility] Medical Records Department [address] [place] [address] Operative Report - Endoscopy MR#: [id number] Acct: [id number] Name: MANISHA MARCUS I Rep #: [id number] : 1975 42 From: Iris Sinclair MD PCP: OUT OF TOWN DOCTOR Status: [facility] Patient Name: Manisha Marcus Procedure Date: 01/20/2018 9:30 AM Date of : 1975 Age: 42 Procedure: Upper GI endoscopy Indications: Iron deficiency anemia Providers: Iris Sinclair MD Medicines: Monitored Anesthesia Care Patient Profile: Laboratory tests results include iron deficiency anemia, hx of gastric bypass. Complications: No immediate complications. Procedure: Pre-Anesthesia Assessment: - Prior to the procedure, a History and Physical was performed, and patient medications and allergies were reviewed. The patient's tolerance of previous anesthesia was also reviewed. The risks and benefits of the procedure and the sedation options and risks were discussed with the patient. All questions were answered, and informed consent was obtained. Prior Anticoagulants: The patient has taken no previous anticoagulant or antiplatelet agents. ASA Grade Assessment: II - A patient with mild systemic disease. After reviewing the risks and benefits, the patient was deemed in satisfactory condition to undergo the procedure. After obtaining informed consent, the endoscope was passed under direct vision. Throughout the procedure, the patient's blood pressure, pulse, and oxygen saturations were monitored continuously. The gastroscope was introduced through the mouth, and advanced to the jejunum. The upper GI endoscopy was accomplished without difficulty. The patient tolerated the procedure well. Scope In: 9:38:30 AM Scope Out: 9:40:52 AM Total Procedure Duration Time 0 hours 2 minutes 22 seconds Findings: The esophagus was normal. The gastric pouch anastomosis was normal. The examined lary limb of jejunum was normal. Impression: - Normal esophagus. - Normal gastric pouch to lary limb anastomosis. - Normal examined jejunum. - No specimens collected. Recommendation: - Discharge patient to home. - Continue present medications. - Discharge patient to home. Procedure Code(s): --- Professional --- 79415, Esophagogastroduodenoscopy, flexible, transoral; diagnostic, including collection of specimen(s) by brushing or washing, when performed (separate procedure) CPT copyright 2017 [employer]. All rights reserved. The codes documented in this report are preliminary and upon director of partnerships review may be revised to meet current compliance requirements. MD Iris Mejias MD 01/20/2018 10:12:11 AM This report has been signed electronically. Number of Addenda: 0 Note Initiated On: 01/20/2018 9:30 AM 01/20/18 1012 Date Iris Sinclair MD Cosigner Signature: Date (if indicated) CC: OUT OF TOWN DOCTOR; Iris Sinclair MD Date Dictated: 01/20/18929 Date Transcribed: Rice Dryer Mechanic: STEVAN Signed BEDSIDE GLUCOSE Collected: 01/20/2018 Status: F Source: [place] 8:[address] [facility] REPOSITORY TYPE CODE TESTS RESULT OUT OF REFERENCE UNITS RANGE LAB L501.080 70-110 mg/dL High BEDSIDE GLU 112 Result Comment: MANAGEMENT OF PATIENT CARE PER NURSING PROTOCOL Performed By: #### L501.080 #### [facility] Laboratory Point of Care [address] [place] [address] HH, HEMOGLOBIN AND Collected: 01/16/2018 Status: F Source: [place] [facility] 2:[address] [facility] REPOSITORY Order Comment: Send Results To: Dr. Villarreal, CLOTHING PATTERNMAKER Reason for Laboratory Test Anemia TYPE CODE TESTS RESULT OUT OF RANGE REFERENCE UNITS LAB L100.1300 12.0-15.0 g/dl Low HGB 10.0 LAB L100.1400 37-47 % Low HCT 34.2 Performed By: #### L100.0600 #### [facility] [address] [place], [address] 12 LEAD ELECTROCARDIOGRAM Observed: 01/14/2018 Status: F Source: [place] 2:[address] [facility] REPOSITORY [facility] Cardiovascular Services [address] [place] [address] 12 Lead EKG 01/11/18 2307 MR#: [id number] Acct: [id number] Name: MANISHA MARCUS I Rep #: [id number] : 1975 42 From: Armand Fowler MD Attending Dr: Duc Sharma DO Status: DIS MERI Ordering Dr: Bernard Mary MD Date: 01/11/18 Location: [facility] Sex: F C Admitted: 01/11/18 Test Reason : CP Blood Pressure : / mmHG Vent. Rate : 125 BPM Atrial Rate : 125 BPM P-R Int : 124 ms QRS Dur : 082 ms QT Int : 308 ms P-R-T Axes : 064 032 044 degrees QTc Int : [address] N[address] abnormality Abnormal ECG When compared with ECG of 11-JAN-2018 16:26, MANUAL COMPARISON REQUIRED, DATA IS UNCONFIRMED Confirmed by ARMAND FOWLER MD ([id number]), editor at large ENA MARCUS ([id number]) on 01/14/2018 2:32:15 PM Referred By: DR LEE Confirmed By:ARMAND FOWLER MD 01/14/18 1432 Date Armand Fowler MD CC: Duc Sharma DO; OUT OF TOWN DOCTOR; Bernard Mary MD Signed DISCHARGE SUMMARY Observed: 01/13/2018 Status: F Source: [place] 4:[address] [facility] REPOSITORY [facility] Medical Records Department [address] [place] [address] Discharge Summary 01/13/18 1054 MR#: [id number] Acct: [id number] Name: MANISHA MARCUS I Rep #: [id number] : 1975 42 From: Miguelina Koehler VACUUM REPAIRER-C PCP: OUT OF TOWN DOCTOR Status: DIS MERI Y Location: [place] [address] <Miguelina Koehler - Last Filed: 01/13/18 11:03> Discharge Date and Diagnosis Date of Admission: 01/11/18 Date of Discharge: 01/13/18 - Primary Discharge Diagnosis Active and Suspected Problems (Last Reviewed 01/11/18 @ 13:30 by Christina Langston) 1. Acute on chronic blood loss anemia, symptomatic with suspected uterine source-stool for occult blood negative 2. Acute kidney injury, secondary to #1 3. Sinus tachycardia, mild-resolved. - Secondary Discharge Diagnosis Chronic Problems (Last Reviewed 01/11/18 @ 13:30 by Christina Langston) Hx of tonsillectomy (Chronic) 1979 Hx of gastric bypass (Chronic) 2009 Weight loss (Chronic) Abnormal uterine bleeding (Chronic) History of ankle surgery (Chronic) Hx of breast reduction, elective (Chronic) delivery delivered (Chronic) Bipolar disorder (Chronic) Hospital Course and Treatment Imaging Results: Diagnostic Data Brain CT 01/12/18 08:18 IMPRESSION: Normal unenhanced CT scan of the brain. Electronically Signed: Dwight Hendrix MD at 10:50 EDT Tel [phone], Service support , Chest X-Ray 01/12/18 20:20 IMPRESSION: Mild cardiomegaly with mild pulmonary vascular congestion. Electronically Signed: Lonnie Lopez, at 21:41 EDT Tel , Service support , Dr. Villarreal- CLOTHING PATTERNMAKER Dr. Sinclair- General Surgery Operations: None Procedures: None Summary of Care Provided: The patient is a 42 year old F admitted 01/11/2018 due to symptomatic anemia. 1. Acute on chronic blood loss anemia, symptomatic with suspected uterine source-hemoglobin 4.8 on admission. Status post 4 units packed red blood cells transfusion. Hgb stable. Repeat CBC in 2 days. CLOTHING PATTERNMAKER and surgery on consult. CLOTHING PATTERNMAKER suspects uterine source and plans for hysterectomy as outpatient in the future due to polymenorrhea. Patient has follow-up appointment with CLOTHING PATTERNMAKER next week. Stool negative for occult blood. Patient discharged on iron due to low iron levels. Patient will follow up with Dr. Sinclair for EGD colonoscopy as outpatient. 2. Acute kidney injury-suspect secondary to #1. Baseline creat 0.6. Creatinine admission 1.08. 3. Mild sinus tachycardia-secondary to #1. Improved. Continue home metoprolol regimen. 4. Type 2 diabetes mellitus-continue home regimen. 5. Hypertension-stable, continue home losartan, metoprolol regimen. 6. Depression/bipolar disorder-continue home fluoxetine, tizanidine regimen. General: Alert, Oriented x3, Cooperative, No apparent distress HEENT: Atraumatic, PERRLA, EOMI, Normocephalic Neck: Supple, No JVD, Negative Carotid Bruits Lungs: Clear to auscultation, Normal air movement Cardiovascular: Regular Rhythm, regular rate, normal S1, Normal S2, No murmurs Abdomen: Bowel Sounds Present, Soft, Non Tender, Non-Distended, Obese Extremities: No clubbing, No cyanosis, No edema, Capillary Refill Less than 3 Seconds Skin: No rashes, No breakdown Musculoskeletal: No Tenderness to Palpation of Joints or Extremities Neurological: Cranial nerves II-XII grossly intact, Neuro grossly intact Psych/Mental Status: Normal Affect, Appropriate Patient seen exam prior to discharge. Physical assessment as noted above. Patient is stable for discharge home with follow-up her conditions as noted above. This patient was seen by KENY Moralez under the supervision of Dr. Sharma. Discharge Diet: 1800 Calorie Control Diet, Carb Control Diet Discharge Activity: Return to Normal Activity Call your doctor if you observe: Shortness of breath, Dizziness, Fainting spells, Chest pain Home Medications: Medications to take at Discharge Duloxetine Hcl [Cymbalta] 60 mg PO BID 09/30/16 dulaglutide 1.5 mg/0.5 mL subcutaneous pen injector 0.75 mg SC QWEEK 01/04/18 sitagliptin 50 mg tablet 50 mg PO DAILY 01/04/18 Losartan Potassium 100 mg PO DAILY 01/11/18 Metoprolol Succinate [Toprol Xl] 100 mg PO DAILY 01/11/18 Mirtazapine 30 mg PO QHS 01/11/18 Montelukast [Singulair] 10 mg PO DAILY 01/11/18 Tizanidine HCl 4 mg PO PRN PRN 01/11/18 Trazodone HCl 100 mg PO QHS 01/11/18 Ferrous Sulfate 325 mg PO BIDCM #60 tab 01/13/18 Following Prescrptions Were Given to Patient: Ferrous Sulfate 325 mg PO BIDCM #60 tab Primary Care Physician: Mark Doctor,Out of [Primary Care Provider] - Please follow up with your Primary Care Physician in: 1 Week Please Follow Up With: Magaly Villarreal MD When: As scheduled next week Please Follow Up With: Iris Sinclair MD - [phone] When: Call to schedule outpatient EGD/Colonoscopy Disposition: Home Minutes spent on discharge:: 35 Patient Condition:: Stable Medical Necessity - Tobacco Use Smoking Status: Never smoker Meaningful Use Info Meaningful Use Diagnoses (Choose all that apply): None applicable <Duc Sharma - Last Filed: 01/13/18 16:49> Discharge Date and Diagnosis - Secondary Discharge Diagnosis Chronic Problems (Last Reviewed 01/11/18 @ 13:30 by Christina Langston) Hx of tonsillectomy (Chronic) 1979 Hx of gastric bypass (Chronic) 2009 Weight loss (Chronic) Abnormal uterine bleeding (Chronic) History of ankle surgery (Chronic) Hx of breast reduction, elective (Chronic) delivery delivered (Chronic) Bipolar disorder (Chronic) Hospital Course and Treatment Operations: None Procedures: None Summary of Care Provided: Patient seen and examined independently. Data reviewed. I agree with the above note by the nurse practitioner. The patient is a 42 year old F presents with symptomatic anemia. Hemoglobin was 4.8. Patient was transfused total of 4 units of packed red blood cells and patient's hemoglobin went up to 9.7. Patient's bleeding is due to menorrhagia. Patient was seen in consultation by Dr. Villarreal. Dr. Villarreal recommended general surgery consulted Dr. Sinclair. Patient hemoglobin responded well with transfusions. Patient is on ferrous sulfate will continue to do so. Patient will require further hemoglobin monitoring. Patient will need to have an EGD and colonoscopy as outpatient. Those procedures were not necessary on inpatient setting as patient is having no hematemesis, melena nor hematochezia. [] Discharge Diet: 1800 Calorie Control Diet, Carb Control Diet Discharge Activity: Return to Normal Activity Call your doctor if you observe: Shortness of breath, Dizziness, Fainting spells, Chest pain Disposition: Home Minutes spent on discharge:: 35 Patient Condition:: Stable Meaningful Use Info Meaningful Use Diagnoses (Choose all that apply): None applicable Code Visit OBSV E AND M: 66412 Observation care discharge 01/13/18 1104 <Electronically signed by Miguelina LIZAMAC> Date Miguelina LIZAMAC 01/13/18 1653<Electronically signed by Duc Sharma DO> Cosigner Signature (if applicable): Date Duc Sharma DO CC: VACUUM REPAIRER-C Miguelina Koehler; Duc Sharma DO; OUT OF TOWN DOCTOR Signed 12 LEAD ELECTROCARDIOGRAM Observed: 01/13/2018 Status: F Source: [place] 2:[address] [facility] REPOSITORY [facility] Cardiovascular Services [address] [place] [address] 12 Lead EKG 01/11/18 1626 MR#: [id number] Acct: [id number] Name: MANISHA MARCUS I Rep #: [id number] : 1975 42 From: Jaxon Mac MD Attending Dr: Duc Sharma DO Status: DIS MERI Ordering Dr: Brad Borja MD Date: 01/11/18 Location: [facility] Sex: F C Admitted: 01/11/18 Test Reason : PALPITATIONS Blood Pressure : / mmHG Vent. Rate : 124 BPM Atrial Rate : 124 BPM P-R Int : 120 ms QRS Dur : 080 ms QT Int : 326 ms P-R-T Axes : 064 025 039 degrees QTc Int : 468 ms Sinus tachycardia Nonspecific ST abnormality Abnormal ECG Confirmed by ESTEFANIA COVINGTON, JAXON ([id number]), editor at large ENA MARCUS ([id number]) on 01/13/2018 2:15:04 PM Referred By: Confirmed By:JAXON MAC MD 01/13/18 1414 Date Jaxon Mac MD CC: Duc Sharma DO; OUT OF TOWN DOCTOR; Brad Borja MD Signed DISCHARGE INSTRUCTION Observed: 01/13/2018 Status: F Source: [place] 10:[address] [facility] REPOSITORY [facility] Medical Records Department [address] [place] [address] Instructions for Home/Discharge Instructions 01/13/18 1050 MR#: [id number] Acct: [id number] Name: MANISHA MARCUS Moraima Rep #: [id number] : 1975 42 From: Miguelina BUSTILLO PCP: OUT OF TOWN DOCTOR Status: ADM MERI - Discharge Diagnoses Current Active Problems: Current Active and Chronic Problems (Last Reviewed 01/11/18 @ 13:30 by Christina Langston) Acute on chronic Symptomatic anemia (Acute) Iron deficiency anemia (Acute) Polymenorrhea (Acute) You will use the following diet at home:: Calorie/Carbohydrate Controlled (specify 1200, 1400, etc) Discharge Activity: Return to Normal Activity Call your doctor if you observe: Shortness of breath, Dizziness, Fainting spells, Chest pain Allergies/Adverse Reactions: Allergies ciprofloxacin [From Cipro] Allergy (Verified 01/11/18 15:40) Rash codeine Allergy (Verified 01/11/18 15:40) Anaphylaxis lamotrigine [From Lamictal] Allergy (Verified 01/11/18 15:40) Rash latex Allergy (Verified 01/11/18 15:40) Rash Medications to take at Discharge Duloxetine Hcl [Cymbalta] 60 mg PO BID 09/30/16 dulaglutide 1.5 mg/0.5 mL subcutaneous pen injector 0.75 mg SC QWEEK 01/04/18 sitagliptin 50 mg tablet 50 mg PO DAILY 01/04/18 Losartan Potassium 100 mg PO DAILY 01/11/18 Metoprolol Succinate [Toprol Xl] 100 mg PO DAILY 01/11/18 Mirtazapine 30 mg PO QHS 01/11/18 Montelukast [Singulair] 10 mg PO DAILY 01/11/18 Tizanidine HCl 4 mg PO PRN PRN 01/11/18 Trazodone HCl 100 mg PO QHS 01/11/18 Ferrous Sulfate 325 mg PO BIDCM #60 tab 01/13/18 The following prescriptions were given: Ferrous Sulfate 325 mg PO BIDCM #60 tab Primary Care Physician: [facility] Doctor,Out of [Primary Care Provider] - Please follow up with your Primary Care Physician in: 1 Week Test Results: Test results from this visit will be discussed in further detail at your follow-up appointment, if applicable. Please Follow Up With: Magaly Villarreal MD When: As scheduled next week Please Follow Up With: Iris Sinclair MD - [phone] When: Call to schedule outpatient EGD/Colonoscopy Proposed Discharge Date: 01/13/18 01/13/18 1054 <Electronically signed by Miguelina BUSTILLO> Date Miguelina BUSTILLO CC: OUT OF [facility] DOCTOR; Magaly Villarreal MD; Iris Sinclair MD BEDSIDE GLUCOSE Collected: 01/13/2018 Status: F Source: [place] 6:[address] [facility] REPOSITORY TYPE CODE TESTS RESULT OUT OF REFERENCE UNITS RANGE LAB L501.080 70-110 mg/dL High BEDSIDE GLU 158 Result Comment: MANAGEMENT OF PATIENT CARE PER NURSING PROTOCOL Performed By: #### L501.080 #### [facility] Point [place] [address] CBC-COMPLETE BLOOD CNT Collected: 01/13/2018 Status: F Source: [place] NO DIFF 6:[address] [facility] REPOSITORY TYPE CODE TESTS RESULT OUT OF RANGE REFERENCE UNITS LAB L100.1000 4.4-11.0 K/mm3 Normal WBC 6.4 LAB L100.1200 4.2-5.4 M/mm3 Normal RBC 4.66 LAB L100.1300 12.0-15.0 g/dl Low HGB 9.7 LAB L100.1400 37-47 % Low HCT 33.0 LAB L100.1500 81-99 fL Low MCV 70.8 LAB L100.1600 27.0-32.0 pg Low MCH 20.8 LAB L100.1700 32-36 g/gl Low MCHC 29.4 LAB L100.1810 11.6-14.6 % High RDW CV 25.3 LAB L100.1820 35.1-43.9 fl High RDW SD 63.7 LAB L100.1900 150-450 K/mm3 Normal PLT 248 LAB L100.2000 6.2-12.0 fl Normal MPV 9.1 Performed By: #### L100.0500, L100.4500 #### [facility] [address] [place], [place], [id number] DIFFERENTIAL COMMENT Collected: 01/13/2018 Status: F Source: [place] 6:[address] [facility] REPOSITORY TYPE CODE TESTS RESULT OUT OF RANGE REFERENCE UNITS LAB L100.4500 Normal SMEAR COMMENT Result Comment: HYPOCHROMIA 1+ ANISOCYTOSIS 3+ Performed By: #### L100.0500, L100.4500 #### [facility] [address] [place], [place], [address] BEDSIDE GLUCOSE Collected: 01/12/2018 Status: F Source: [place] 9:[address] [facility] REPOSITORY TYPE CODE TESTS RESULT OUT OF REFERENCE UNITS RANGE LAB L501.080 70-110 mg/dL High BEDSIDE GLU 248 Result Comment: MANAGEMENT OF PATIENT CARE PER NURSING PROTOCOL Performed By: #### L501.080 #### [facility] Point of Care [address] [place] [address] CHEST 1 VIEW Observed: 01/12/2018 Status: F Source: [place] (PORTABLE) 8:[address] [facility] REPOSITORY [facility] Imaging Services [address] [place] [address] Chest 1 View (Portable) MR#: [id number] Acct: [id number] Name: MANISHA MARCUS I Rep #: [id number] : 1975 F 42 From: Lonnie Lopez MD PCP: OUT OF TOWN DOCTOR Status: ADM MERI Study: Chest 1 View (Portable) Date of Exam: 01/12/18 Exam# [id number] Ordering Dr: Tod Guadalupe MD STUDY: X-RAY CHEST REASON FOR EXAM: Female, 42 years old. Chest pain TECHNIQUE: Frontal view of the chest COMPARISON: 01/11/2018 FINDINGS: There are mild congestive changes noted. The lungs are otherwise clear. There are no pleural effusions. There is no pneumothorax. The heart is mildly enlarged. The visualized osseous structures are within normal limits. RAD/Chest 1 View (Portable) IMPRESSION: Mild cardiomegaly with mild pulmonary vascular congestion. 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 IFOB REPOSITORY STOB iFOB Occult Blood Negative Performed By: #### M100.7900 #### [facility] [address] [facility] [place], [address] BEDSIDE GLUCOSE Collected: 01/12/2018 Status: F Source: [place] 5:[address] [facility] REPOSITORY TYPE CODE TESTS RESULT OUT OF REFERENCE UNITS RANGE LAB L501.080 70-110 mg/dL High BEDSIDE GLU 111 Result Comment: MANAGEMENT OF PATIENT CARE PER NURSING PROTOCOL Performed By: #### L501.080 #### [facility] Point of Care [address] [place] [address] CONSULTATION Observed: 01/12/2018 Status: F Source: [place] 3:[address] 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 In office she was quite tachycardic and was on a beta-elana as well. Strongly encourage patient to go to the ER or urgent care. Patient did present to the ER due to having some more shortness of breath as well as her palpitations. Her hemoglobin was 4.8 in the ER. She was admitted and given 2 units of packed red blood cells currently her hemoglobin is 7. Patient states last time she has had an EGD or colonoscopy was in 2012 at [place]. Patient does have a history of a gastric bypass (which her significant other is unaware of). Patient does complain of bouts of diarrhea with floating stool unable to ask about the last time she saw her surgeon who did the gastric bypass as her significant other was in the room. Once her significant other left, she did states she does eat fairly healthy and does not eat a lot of fatty foods. She denies any blood in her stool or melena. She does complain of nausea denies any vomiting. Patient does have a history of uterine bleeding during her menstrual cycle which is quite heavy and is irregular. Past Medical History Past Medical History (Chronic Problems): Chronic Problems (Last Reviewed 01/11/18 @ 13:30 by Christina Langston) Hx of tonsillectomy (Chronic) 1979 Hx of gastric bypass (Chronic) 2009 Weight loss (Chronic) Abnormal uterine bleeding (Chronic) History of ankle surgery (Chronic) Hx of breast reduction, elective (Chronic) delivery delivered (Chronic) Bipolar disorder (Chronic) Medical History: Medical History (Last Reviewed 01/11/18 @ 13:30 by Christina Langston) Bipolar disorder (Chronic) F31.9 hypertension (Acute) Diabetes (Acute) E11.9 Allergies ciprofloxacin [From Cipro] Allergy (Verified 01/11/18 15:40) Rash codeine Allergy (Verified 01/11/18 15:40) Anaphylaxis lamotrigine [From Lamictal] Allergy (Verified 01/11/18 15:40) Rash latex Allergy (Verified 01/11/18 15:40) Rash Home Medications: Ambulatory Orders Medication Instructions Recorded Surgical History: Surgical History (Last Updated 01/11/18 @ 13:34 by Christina Langston) Hx of tonsillectomy (Chronic) Z90.89 1980 Hx of gastric bypass (Chronic) Z98.84 2010 History of ankle surgery (Chronic) Z98.890 Hx of appendectomy (Acute) Z90.49 Hx of breast reduction, elective (Chronic) Z98.890 delivery delivered (Chronic) O82 Smoking Status: Never smoker - *Family History Maternal Family History: Family History (Last Reviewed 01/11/18 @ 13:30 by Christina Langston) Mother No problems noted. Father Heart disease CVA (cerebral vascular accident) History Items: No pertinent history Patient Problems: Active and Suspected Problems (Last Reviewed 01/11/18 @ 13:30 by Christina Langston) Acute on chronic Symptomatic anemia (Acute) Iron deficiency anemia (Acute) Polymenorrhea (Acute) - Physical Exam General: Alert, Oriented x3, Cooperative, No apparent distress Lungs: Normal air movement Cardiovascular: Tachycardic Abdomen: Soft, Non-Distended, Tender - Mild in the lower abdomen, no peritoneal signs Vital Signs Temp Pulse Resp BP Pulse Ox 98.4 F 110 H 16 126/61 H 100 01/12/18 05:58 01/12/18 09:45 01/12/18 07:24 01/12/18 05:58 01/12/18 07:24 Oxygen Flow Rate (L/min) 2 Oxygen Delivery Method Nasal Cannula Weight: 207 lb 3.752 oz Body Mass Index (BMI) 33.4 Intake and Output for Last 24 Hours Intake Total 2113 / 2114 1775 / 1775 Balance 2113 Laboratory Tests Past 24 Hrs WBC 5.1 RBC 3.68 L Hgb 7.0 L Hct 25.1 L MCV 68.2 L MCH 19.0 L POC Glucose POC Glucose 187 H 208 H Assessment/Plan All Active Problems (Last Reviewed 01/11/18 @ 13:30 by Christina Langston) Acute on chronic Symptomatic anemia (Acute) Iron deficiency anemia (Acute) Polymenorrhea (Acute) Lump of right breast (Acute) Hx of appendectomy (Acute) hypertension (Acute) Diabetes (Acute) 42-year-old female with anemia, irregular menses 1. Discussed with patient we could do an EGD and colonoscopy to rule out any source of GI bleed. Patient would prefer this to be done while she is in the hospital. Will discuss with endoscopy as far as timing. Addendum: will plan to do an EGD and colonoscopy on at 8 AM. Will start her prep-golytely- tomorrow and have her on only clears tomorrow. I have discussed the above with the patient. I have offered the patient EGD and colonoscopy for evaluation. I have explained the risks/benefits of the procedure and described the procedure. I have discussed the risks with the patient, including but not limited to: infection, bleeding, perforation of the GI tract requiring emergency surgery, inability to complete the procedure, injury to any internal organs, complications of anesthesia, etc. - the patient understands and agrees to proceed. I have answered all the patient's questions to the patient's satisfaction and the patient has no further questions. Iris Sinclair M.D. Pager: [phone] [facility] [address] [place] [address], [facility], [address] [place] [address] Office: [phone] Code Visit Inpatient E AND M: 66409 Init Hosp L1 01/12/18 1528 <Electronically signed by Iris Sinclair MD> Date Iris Sinclair MD Cosigner Signature (if applicable): Date CC: OUT OF TOWN DOCTOR; Magaly Villarreal MD; Iris Sinclair MD Signed BEDSIDE GLUCOSE Collected: 01/12/2018 Status: F Source: [place] 12:[address] [facility] REPOSITORY TYPE CODE TESTS RESULT OUT OF REFERENCE UNITS RANGE LAB L501.080 70-110 mg/dL High BEDSIDE GLU 177 Result Comment: MANAGEMENT OF PATIENT CARE PER NURSING PROTOCOL Performed By: #### L501.080 #### [facility] Point of Care [address] [facility] [place] [address] CONSULTATION Observed: 01/12/2018 Status: F Source: [place] 8:[address] [facility] REPOSITORY [facility] Medical Records Department [address] [place] [address] Consultation 01/12/18 0829 MR#: [id number] Acct: [id number] Name: MANISHA MARCUS I Rep #: [id number] : 1975 42 From: Magaly Villarreal MD PCP: OUT OF TOWN DOCTOR Status: ADM MERI Y Location: [place] [address] Problem List (1) Acute on chronic Symptomatic anemia Status: Acute (2) Iron deficiency anemia Status: Acute (3) Polymenorrhea Status: Acute (4) Hx of tonsillectomy Status: Chronic Comment: 1979 (5) Hx of gastric bypass Status: Chronic Comment: 2009 (6) Weight loss Status: Chronic (7) Lump of right breast Status: Acute (8) Abnormal uterine bleeding Status: Chronic Reason for Consult Date of Consultation: 01/12/18 History of Present Illness: The patient is a 42 year old F with acute on chronic severe blood loss anemia likely secondary to AUB but she has also had significant GI complaints and a 40 lb weight loss in the last few months. She co bloating, abdominal pain and diarrhea, and also has a nodule in her breast that is planned for biopsy by dr sinclair. She has irregular cycles with 10-15 days of bleeding, her LMP was december 23-dec 31. her hg dropped from 10 in october to now 4.8. Past Medical History Past Medical History (Chronic Problems): Chronic Problems (Last Reviewed 01/11/18 @ 13:30 by Christina Langston) Hx of tonsillectomy (Chronic) 1979 Hx of gastric bypass (Chronic) 2010 Weight loss (Chronic) Abnormal uterine bleeding (Chronic) History of ankle surgery (Chronic) Hx of breast reduction, elective (Chronic) delivery delivered (Chronic) Bipolar disorder (Chronic) Medical History: Medical History (Last Reviewed 01/11/18 @ 13:30 by Christina Langston) Bipolar disorder (Chronic) F31.9 hypertension (Acute) Diabetes (Acute) E11.9 Allergies ciprofloxacin [From Cipro] Allergy (Verified 01/11/18 15:40) Rash codeine Allergy (Verified 01/11/18 15:40) Anaphylaxis lamotrigine [From Lamictal] Allergy (Verified 01/11/18 15:40) Rash latex Allergy (Verified 01/11/18 15:40) Rash Home Medications: Ambulatory Orders Medication Instructions Recorded Surgical History: Surgical History (Last Updated 01/11/18 @ 13:34 by Christina Langston) Hx of tonsillectomy (Chronic) Z90.89 1979 Hx of gastric bypass (Chronic) Z98.84 2009 History of ankle surgery (Chronic) Z98.890 Hx of appendectomy (Acute) Z90.49 Hx of breast reduction, elective (Chronic) Z98.890 delivery delivered (Chronic) O82 Smoking Status: Never smoker - *Family History Maternal Family History: Family History (Last Reviewed 01/11/18 @ 13:30 by Christina Langston) Mother No problems noted. Father Heart disease CVA (cerebral vascular accident) History Items: No pertinent history Review of Systems Constitutional: Reports: Weight Change HEENT: Reports: Head Aches Cardiovascular: Reports: Chest Pain, Heaviness, Light Headedness Respiratory: Reports: Shortness of Breath Gastrointestinal: Reports: Abdominal Pain, Diarrhea Patient Problems: Active and Suspected Problems (Last Reviewed 01/11/18 @ 13:30 by Christina Langston) Acute on chronic Symptomatic anemia (Acute) Iron deficiency anemia (Acute) Polymenorrhea (Acute) - Physical Exam General: Alert, Oriented x3, Cooperative HEENT: Atraumatic, EOMI, Normocephalic Neck: Supple Lungs: Normal air movement Cardiovascular: Regular rate Abdomen: Soft, Non Tender Extremities: No edema Skin: No rashes, No breakdown Musculoskeletal: No Tenderness to Palpation of Joints or Extremities Psych/Mental Status: Normal Affect, Appropriate Vital Signs Temp Pulse Resp BP Pulse Ox 98.4 F 114 H 16 126/61 H 100 01/12/18 05:58 01/12/18 07:24 01/12/18 07:24 01/12/18 05:58 01/12/18 07:24 Oxygen Flow Rate (L/min) 2 Oxygen Delivery Method Nasal Cannula Weight: 207 lb 3.752 oz Body Mass Index (BMI) 33.4 Intake and Output for Last 24 Hours Intake Total 2113 / 1774 Balance 2113 Laboratory Tests Past 24 Hrs WBC 5.1 RBC 3.68 L Hgb 7.0 L POC Glucose POC Glucose 187 H 208 H Assessment/Plan All Active Problems (Last Reviewed 01/11/18 @ 13:30 by Christina Langston) Acute on chronic Symptomatic anemia (Acute) Iron deficiency anemia (Acute) Polymenorrhea (Acute) Lump of right breast (Acute) Hx of appendectomy (Acute) hypertension (Acute) Diabetes (Acute) 42 yo with severe anemia acute on chronic blood loss 1. anemia- source likely uterine, will plan fu as OP for planned hysterectomy in future. recommend surgery consult for possible colonoscopy and/or EGD also. will contact dr sinclair. 01/12/18 0858 <Electronically signed by Magaly Villarreal MD> Date Magaly Villarreal MD Cosigner Signature (if applicable): Date CC: OUT OF TOWN DOCTOR; Magaly Villarreal MD Signed BRAIN/HEAD WITHOUT Observed: 01/12/2018 Status: F Source: [place] CONTRAST 8:[address] [facility] REPOSITORY [facility] [place] [address] Brain/Head without Contrast MR#: [id number] Acct: [id number] Name: MANISHA MARCUS I Rep #: [id number] : 1975 F 42 From: Dwight Hendrix MD PCP: OUT OF TOWN DOCTOR Status: ADM MERI Study: Brain/Head without Contrast Date of Exam: 01/12/18 Exam# [id number] Ordering Dr: Duc Sharma DO STUDY: CT BRAIN WITHOUT CONTRAST REASON FOR EXAM: Female, 42 years old. Headaches. Anemia due to abnormal uterine bleeding. RADIATION DOSAGE (If Supplied By Facility): CTDIvol = ( 44.99 ) mGy, DLP = ( 762.36 ) mGycm TECHNIQUE: Transaxial CT imaging of the brain was performed without administration of intravenous contrast material. Individualized dose optimization techniques were used for this CT. COMPARISON: None. FINDINGS: Normal soft tissue structures. Normal calvarium. Normal size ventricles and extra-axial spaces for the patient's age. Normal white matter tracts of the cerebral hemispheres. Normal basal ganglia and thalami. Normal brainstem. Normal cerebellum. There is no intracranial hemorrhage. There are no findings of an acute ischemic infarction. Normal visualized paranasal sinuses. CT/Brain/Head without Contrast IMPRESSION: Normal unenhanced CT scan of the brain. 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 REPOSITORY TYPE CODE TESTS RESULT OUT OF RANGE REFERENCE UNITS LAB L100.1000 4.4-11.0 K/mm3 Normal WBC 5.1 LAB L100.1200 4.2-5.4 M/mm3 Low RBC 3.68 LAB L100.1300 12.0-15.0 g/dl Low HGB 7.0 LAB L100.1400 37-47 % Low HCT 25.1 LAB L100.1500 81-99 fL Low MCV 68.2 LAB L100.1600 27.0-32.0 pg Low MCH 19.0 LAB L100.1700 32-36 g/gl Low MCHC 27.9 LAB L100.1810 11.6-14.6 % High RDW CV 23.9 LAB L100.1820 35.1-43.9 fl High RDW SD 57.2 LAB L100.1900 150-450 K/mm3 Normal PLT 261 LAB L100.2000 6.2-12.0 fl Normal MPV 9.1 LAB L100.2100 47-70 % High NEUT% 80.3 LAB L100.2200 19-41 % Low LY% 12.1 LAB L100.2300 0-10 % Normal MONO% 6.2 LAB L100.2400 0-5 % Normal EO% 0.8 LAB L100.2500 0-1 % Normal BASO% 0.4 LAB L100.2550 0.0-0.9 % Normal IM GRAN % 0.200 Result Comment: IG% - Immature Granulocytes (promyelocytes, myelocytes and metamyelocytes) > 1% indicates that a LEFT SHIFT is Present. LAB L100.2620 2.0-7.7 X10 3/uL Normal Absolute Neut 4.1 LAB L100.2720 0.83-4.51 X10 3/ul Low Absolute Lymph 0.62 LAB L100.4500 Normal SMEAR COMMENT COMMENT Result Comment: SLIDE SCANNED - 1+ [employer] CELLS, 1+ ANISO. Performed By: #### L100.0100 #### [facility] [address] [place], [place], [address] BEDSIDE GLUCOSE Collected: 01/12/2018 Status: F Source: [place] 6:[address] [facility] REPOSITORY TYPE CODE TESTS RESULT OUT OF REFERENCE UNITS RANGE LAB L501.080 70-110 mg/dL High BEDSIDE GLU 187 Result Comment: MANAGEMENT OF PATIENT CARE PER NURSING PROTOCOL Performed By: #### L501.080 #### [facility] Point of Care [address] [place], [place] [address] EMERGENCY DEPARTMENT Observed: 01/12/2018 Status: F Source: [place] SUMMARY 1:[address] [facility] REPOSITORY [facility] Medical Records Department [address] [place] [address] Emergency Department Summary 01/11/18 1558 MR#: [id number] Acct: [id number] Name: MANISHA MARCUS I Rep #: [id number] : 1975 42 From: Brad Borja MD PCP: OUT OF TOWN DOCTOR Status: ADM MERI - ER Visit Summary Date of Service: 01/11/18 Chief Complaint: Elevated heart rate and shortness of breath History of Present Illness: The patient is a [address] Cobos at [facility]. She reports that her heart rate is usually 98. States that has been elevated for the past 2 weeks. Today it has been 108, 115, 138. She reports that she has had constant chest pain for the past few weeks. It is a waxing and waning pain. She describes it as throbbing. Is 5 out of 10 currently and 9 out of 10 at worst. It is not worsened by exertion. She also complains of moderate shortness of breath at rest and severe shortness of breath with exertion. Patient and family drove the [place] December 23. She has no personal history of DVT. She does have a family history of DVT. Physical Examination: Vitals: Stable. Afebrile. General: Well-nourished and well-developed. Head: Normocephalic atraumatic. Neck: Supple, no lymphadenopathy. No JVD. Nontender. Cardiovascular: Tachycardic regular rhythm with 2 out of 6 systolic murmur. Respiratory: No respiratory distress. Clear to auscultation bilaterally. Abdominal: Soft, nontender, nondistended, normal bowel sounds. No guarding, rebound, or peritoneal signs. Back: Nontender. Extremities: Nontender, no edema. Skin: Normal color, no rash. Neurologic: Alert and oriented 3. Cranial nerves II through XII are intact. Normal strength and sensation. Psych: Normal affect. Test Results: EKG is sinus tachycardia [address] changes. She has minimal ST depression inferiorly and leads V3 to V6. There is no old EKG for comparison. CBC is marked for a hematocrit of 19.0. Chem-7 is more for glucose 270, calcium 8.4, creatinine 1.08. D-dimer is negative. test negative. TSH 1.49. Troponin is negative. Emergency Department Course and Treatment: Patient had an IV placed. She is given a liter normal saline. She was given morphine and Zofran IV. She is resting comfortably. Patient was typed and crossed for 4 units of packed red blood cells. When patient's labs returned I spoke with her again about the possibility of bleeding. She has had no trauma, nosebleeds, melena, hematochezia, or hematemesis. Treatment Plan: Patient was discussed with Dr. Damir Castro and with Dr. Mary. She will be admitted to the hospital for further evaluation and treatment. Disposition: Admitted in improved condition. Impression: 1. Anemia. 2. Dysfunctional uterine bleeding. This note was generated with AppFirst dictation software. It may contain incorrect words, spelling, and punctuation that were not noted in review of the chart prior to signing ED Disposition - Plan for ED Patient: Chief Complaint: Palpitations Referrals: [facility] Doctor,Out of [Primary Care Provider] - What to do if you have Problems For any increased pain, shortness of breath, bleeding, nausea or vomiting, chest pain, or any unexpected problems, contact your Primary Care Provider. Call [facility] ([phone]) or report to the closest Emergency Room. Call 911 if necessary. 01/12/18 0102 <Electronically signed by Brad Borja MD> Date Brad Borja MD Cosigner Signature (If Indicated): Date CC: OUT OF [facility] DOCTOR BEDSIDE GLUCOSE Collected: 01/11/2018 Status: F Source: [place] 10:[address] [facility] REPOSITORY TYPE CODE TESTS RESULT OUT OF REFERENCE UNITS RANGE LAB L501.080 70-110 mg/dL High BEDSIDE GLU 208 Result Comment: MANAGEMENT OF PATIENT CARE PER NURSING PROTOCOL Performed By: #### L501.080 #### [facility] Point of Care [address] [place] [address] TROPONIN-I Collected: 01/11/2018 Status: F Source: [place] 9:[address] [facility] REPOSITORY TYPE CODE TESTS RESULT OUT OF RANGE REFERENCE UNITS LAB L501.4010 <0.045 ng/mL Normal < 0.015 TROPONIN-I Result Comment: TROPONIN-I EXPECTED VALUES <0.045 Negative 0.045 - 0.590 Consistent with Cardiac Damage > OR = 0.600 Critical Value Not every elevated troponin is indicative of AZ. These values should be used with clinical judgement in examining the patient's clinical picture for diagnosis. To establish a diagnosis of AZ versus myocardial injury, there must be a demonstrated rise and/or fall in the troponin values, in addition to ischemic symptoms, EKG changes, new regional wall motion abnormality, and/or angiographical evidence. PLEASE NOTE: REFERENCE RANGES EDITED 17 Performed By: #### L501.4010 #### [facility] [address] [place], [address] IRON+IRON BINDING Collected: 01/11/2018 Status: F Source: [place] CAPACITY 9:[address] [facility] REPOSITORY TYPE CODE TESTS RESULT OUT OF RANGE REFERENCE UNITS LAB L503.6075 250-450 ug/dL TIBC Normal 397 LAB L503.6150 50-170 ug/dL Low IRON 13 LAB L503.6250 15.0-55.0 % Low IRON SATURATION 3.3 Performed By: #### L503.6030, L503.6550 #### [facility] [address] [place], [address] FERRITIN Collected: 01/11/2018 Status: F Source: [place] 9:[address] [facility] REPOSITORY TYPE CODE TESTS RESULT OUT OF REFERENCE UNITS RANGE LAB L503.6550 8-252 ng/mL Low FERRITIN 2 Performed By: #### L503.6030, L503.6550 #### [facility] [address] [place], [address] HISTORY AND PHYSICAL Observed: 01/11/2018 Status: F Source: [place] EXAM 6:[address] [facility] REPOSITORY [facility] Medical Records Department [address] [place] [address] History and Physical 01/11/18 1812 MR#: [id number] Acct: [id number] Name: MANISHA MARCUS I Rep #: [id number] : 1975 42 From: Bernard Mary MD PCP: OUT OF TOWN DOCTOR Status: DEP ER Y Location: ED Problem List (1) Acute on chronic Symptomatic anemia Status: Acute (2) Iron deficiency anemia Status: Acute (3) Polymenorrhea Status: Acute (4) Hx of tonsillectomy Status: Chronic Comment: 1979 (5) Hx of gastric bypass Status: Chronic Comment: 2009 (6) Weight loss Status: Chronic (7) Lump of right breast Status: Acute (8) Abnormal uterine bleeding Status: Chronic (9) History of ankle surgery Status: Chronic (10) Hx of appendectomy Status: Acute (11) Hx of breast reduction, elective Status: Chronic (12) delivery delivered Status: Chronic (13) Bipolar disorder Status: Chronic (14) hypertension Status: Acute (15) Diabetes Status: Acute History of Present Illness Date of Admission: 01/11/18 Chief Complaint: Symptomatic anemia. The patient is a 42 year old F with history of hypertension and diabetes mellitus type 2 came to ER for feeling palpitation for last 2 weeks. Her heart rate has been 110s and today 138. She also feels palpitations like pounding chest pain. She also has shortness of breath on exertion. Patient has vaginal bleeding after about 2-3 months of her last born. She has irregular vaginal bleeding,, sometimes lasting for 7-10 days and comes frequently in short cycle, 14-21 days. In ED, she was found severely anemic hemoglobin 4.8, hematocrit 19.0. 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 After that her hemoglobin stayed stable and was told to follow-up with PCP Moises. ED physician Dr. Borja also consulted Dr. Villarreal who suggested hospitalist admission and she will do consultationn. [] Past Medical History Past Medical History (Chronic Problems): Chronic Problems (Last Reviewed 01/11/18 @ 13:30 by Christina Langston) Hx of tonsillectomy (Chronic) 1979 Hx of gastric bypass (Chronic) 2009 Weight loss (Chronic) Abnormal uterine bleeding (Chronic) History of ankle surgery (Chronic) Hx of breast reduction, elective (Chronic) delivery delivered (Chronic) Bipolar disorder (Chronic) Medical History: Medical History (Last Reviewed 01/11/18 @ 13:30 by Christina Langston) Bipolar disorder (Acute) F31.9 hypertension (Acute) Diabetes (Acute) E11.9 Allergies ciprofloxacin [From Cipro] Allergy (Verified 01/11/18 15:40) Rash codeine Allergy (Verified 01/11/18 15:40) Anaphylaxis lamotrigine [From Lamictal] Allergy (Verified 01/11/18 15:40) Rash latex Allergy (Verified 01/11/18 15:40) Rash Home Medications: Ambulatory Orders Medication Instructions Recorded Surgical History: Surgical History (Last Updated 01/11/18 @ 13:34 by Christina Langston) Hx of tonsillectomy (Acute) Z90.89 1980 Hx of gastric bypass (Acute) Z98.84 2010 History of ankle surgery (Acute) Z98.890 Hx of appendectomy (Acute) Z90.49 Hx of breast reduction, elective (Acute) Z98.890 delivery delivered (Acute) O82 Smoking Status: Never smoker - *Family History Maternal Family History: Family History (Last Reviewed 01/11/18 @ 13:30 by Christina Langston) Mother No problems noted. Father Heart disease CVA (cerebral vascular accident) History Items: No pertinent history Review of Systems Constitutional: Denies: Chills, Fever, Weight Change HEENT: Denies: Head Aches, Sinus Congestion, Sinus Drainage Cardiovascular: Reports: Chest Tightness, Palpitations Respiratory: Reports: Shortness of breath upon exertion. Denies: Cough, Shortness of breath at rest, Sputum production Gastrointestinal: Denies: Abdominal Pain, Nausea, Vomiting Genitourinary: Denies: Dysuria Musculoskeletal: Denies: Joint Pain, Joint Tenderness Skin: Denies: Rash, Wounds Neurological: Denies: Numbness, Tingling, Focal weakness Psychiatric: Denies: Anxiety, Depression, Homicidal Ideations, Suicidal Ideations Hematologic/ Lymphatic: Denies: Easy Bruising, Easy Bleeding VTE Information - Inpt Only VTE Present on Admission: No VTE Mechan Device Prophylaxis: SCD's VTE Pharm Prophylaxis ordered?: No Reason prophylaxis not ordered:: Medical Contraindication Patient Problems: Active and Suspected Problems (Last Reviewed 01/11/18 @ 13:30 by Christina Langston) Acute on chronic Symptomatic anemia (Acute) Iron deficiency anemia (Acute) Polymenorrhea (Acute) - Physical Exam General: Alert, Oriented x3, Cooperative HEENT: Atraumatic, PERRLA, EOMI, Normocephalic Neck: Supple, No JVD, Negative Carotid Bruits Lungs: Clear to auscultation, No rhonchi, No wheeze, No rales, Diminished Cardiovascular: Normal S1, Normal S2, No murmurs, Tachycardic Abdomen: Bowel Sounds Present, Soft, Non Tender, Non-Distended Extremities: No edema, Capillary Refill Less than 3 Seconds Skin: No rashes, No breakdown Musculoskeletal: No Tenderness to Palpation of Joints or Extremities Neurological: Cranial nerves II-XII grossly intact, Neuro grossly intact Psych/Mental Status: Normal Affect, Appropriate Vital Signs Temp Pulse Resp BP Pulse Ox 97.6 F L 120 H 17 149/60 H 97 01/11/18 15:39 01/11/18 18:02 01/11/18 18:02 01/11/18 18:02 01/11/18 18:02 Oxygen Flow Rate (L/min) 2 Oxygen Delivery Method Nasal Cannula Weight: 195 lb Body Mass Index (BMI) 31.4 Laboratory Tests Past 24 Hrs WBC 4.5 RBC 3.03 L Hgb 4.8 L* Hct 19.0 L MCV 62.7 L Assessment/Plan All Active Problems (Last Reviewed 01/11/18 @ 13:30 by Christina Langston) Acute on chronic Symptomatic anemia (Acute) Iron deficiency anemia (Acute) Polymenorrhea (Acute) Lump of right breast (Acute) Hx of appendectomy (Acute) hypertension (Acute) Diabetes (Acute) The patient is a 42 year old F with history of hypertension and diabetes mellitus type 2 came to ER for feeling palpitation for last 2 weeks. Her heart rate has been 110s and today 138. She also feels palpitations like pounding chest pain. She also has shortness of breath on exertion. Patient has vaginal bleeding after about 2-3 months of her last born. She has irregular vaginal bleeding,, sometimes lasting for 15-20 days and comes frequently in short cycle, 14-21 days. Her last stool period Was from December 23 - December 31. Currently she denies vaginal bleeding. In ED, she was found severely anemic hemoglobin 4.8, hematocrit 19.0. She had anemia before and had iron infusion in 2015 by warm in worker. After that her hemoglobin stayed stable and was told to follow-up with PCP. She had EGD and colonoscopy in 2013 in [facility] and was told normal. ED physician Dr. Borja also consulted Dr. Villarreal who suggested hospitalist admission and she will do consultationn. [] EKG shows sinus tachycardia at 124 bpm. 1. Symptomatic anemia, most probably from vaginal bleeding: Patient is being admitted in PCU. IV fluid normal saline. 2 units of PRBC ordered by ED physician. Posttransfusion CBC. Dr. Villarreal consult. Stool for occult blood. First troponin is negative. At one more troponin after 4 hours. CBC tomorrow a.m. 2. History of type 2 diabetes mellitus : Her A1c last was 5.7. Blood sugar was 270. Accu-Chek before meals and at bedtime and cover with NovoLog sliding scale. She is on long-acting insulin. 3. Hypertension: BP is elevated 198/99, currently 149/60. She states her blood pressure usually controlled. Continue losartan 100 mg daily. Obesity with history of gastric bypass surgery, bipolar disorder: Home medication reconciliation done. DVT prophylaxis: Bilateral SCDs. Pharmacological prophylaxis contraindicated. This note was generated with AppFirst dictation software. Every effort was made to ensure accuracy, however computerized dough cutter mistakes may persist. [] [] 01/11/18 6626 <Electronically signed by Bernard Mary MD> Date Bernard Mary MD Cosigner Signature: Date (if applicable) CC: OUT OF TOWN DOCTOR; Bernard Mary MD Signed TYPE AND SCREEN Collected: 01/11/2018 Status: F Source: [place] 5:[address] [facility] REPOSITORY Order Comment: CMV NEG? N Number of units to transfuse: 2 Is pt's Hgb is </= to 7.0 mg/dl or Hct </= 21%? Y Reason for Ordering Blood: Chronic Are the blood/blood products to be transfused? Y Is the patient having/had surgery? N Has pt arrived? Y CMV NEG?* N Give When? When Ready Irradiated? N Leukodepleted? Y Reason for Type AND Screen/Red Cells: ANEMIA TYPE CODE TESTS RESULT OUT OF RANGE REFERENCE UNITS LAB B10.0800 B Normal BLOOD TYPE GEL POSITIVE LAB B100.4000 Normal Antibody NEGATIVE Screen Performed By: #### B101.7450 #### [facility] [address] [place], [place], [address] Collected: 01/11/2018 Status: F Source: [place] 5:[address] [facility] REPOSITORY TYPE CODE TESTS RESULT OUT OF REFERENCE UNITS RANGE LAB U100.0000 [id number] TRANSFUSED PRODUCT: T AND S with Crossmatch, Red Cells COUNT: 4 Performed By: #### U100.0000 #### Non-[facility] - refer to report for specific site BASIC METABOLIC Collected: 01/11/2018 Status: F Source: [place] PROFILE (BMP) 4:[address] [facility] REPOSITORY TYPE CODE TESTS RESULT OUT OF RANGE REFERENCE UNITS LAB L501.0100 74-106 mg/dL High GLU 270 Result Comment: Glucose result greater than or equal to 200 mg/dL suggests DIABETES MELLITUS per A.D.A. criteria. Please note revised GLUCOSE reference range effective 2017. LAB L501.1000 7-18 mg/dL Normal BUN 11 LAB L501.1100 0.55-1.02 mg/dL High CREAT,SERUM 1.08 Result Comment: The validity of the calculated GFR AND GFRAA in patients over 70 years has not been determined. Clinical correlation is essential. LAB L501.1110 >60 mL/min Low EST GFR 59 Result Comment: Non- GFR Calc LAB L501.1115 >60 mL/min Normal EST GFR - AA 71 Result Comment: GFR Calc LAB L501.1255 ml/min Normal Estimated CRCL 62.23 LAB L501.1300 10-20 RATIO Normal BUN/CRE 10.2 LAB L501.2200 8.5-10 mg/dL Low .1 CA 8.4 LAB L501.5300 136-14 mmol/L Normal 5 NA 138 LAB L501.5600 3.5-5. mmol/L Normal 1 K 3.9 LAB L501.5900 98-107 mmol/L Normal CL 106 LAB L501.6100 21.0-3 mmol/L Normal 2.0 CO2 23.0 LAB L501.6200 5-15 Normal GAP 9 Performed By: #### L500.2500, L501.4010, L501.9520 #### [facility] [address] [place], [address] TROPONIN-I Collected: 01/11/2018 Status: F Source: [place] 4:[address] [facility] REPOSITORY TYPE CODE TESTS RESULT OUT OF RANGE REFERENCE UNITS LAB L501.4010 <0.045 ng/mL Normal < 0.015 TROPONIN-I Result Comment: TROPONIN-I EXPECTED VALUES <0.045 Negative 0.045 - 0.590 Consistent with Cardiac Damage > OR = 0.600 Critical Value Not every elevated troponin is indicative of AZ. These values should be used with clinical judgement in examining the patient's clinical picture for diagnosis. To establish a diagnosis of AZ versus myocardial injury, there must be a demonstrated rise and/or fall in the troponin values, in addition to ischemic symptoms, EKG changes, new regional wall motion abnormality, and/or angiographical evidence. PLEASE NOTE: REFERENCE RANGES EDITED 17 Performed By: #### L500.2500, L501.4010, L501.9520 #### [facility] [address] [place], [place], [address] THYROID STIM HORMONE Collected: 01/11/2018 Status: F Source: [place] (TSH) 4:[address] [facility] REPOSITORY TYPE CODE TESTS RESULT OUT OF RANGE REFERENCE UNITS LAB L501.9520 0.358-3.74 uIU/mL Normal TSH 1.49 Performed By: #### L500.2500, L501.4010, L501.9520 #### [facility] [address] [place], [address] D-DIMER QUANTITATIVE Collected: 01/11/2018 Status: F Source: [place] (DVT/PE) 4:[address] [facility] REPOSITORY TYPE CODE TESTS RESULT OUT OF RANGE REFERENCE UNITS LAB L300.8000 0.27-0.49 FEU/ug/m Normal D-DIMER 0.28 QUANT Result Comment: NORMAL D-Dimer level (<0.50) indicates no DVT or PE. Performed By: #### L300.8000 #### [facility] [address] [place], [place], [address] CBC W/DIFF, AUTOMATED Collected: 01/11/2018 Status: F Source: [place] 4:[address] [facility] REPOSITORY TYPE CODE TESTS RESULT OUT OF RANGE REFERENCE UNITS LAB L100.1000 4.4-11.0 K/mm3 Normal WBC 4.5 LAB L100.1200 4.2-5.4 M/mm3 Low RBC 3.03 LAB L100.1300 12.0-15.0 g/dl Low alert HGB 4.8 Result Comment: CRITICAL VALUE VERIFIED. CALLED TO [place] [id number] 01/11/18 Carmen Dillard. RESULTS READ BACK BY SAME . LAB L100.1400 37-47 % Low HCT 19.0 LAB L100.1500 81-99 fL Low MCV 62.7 LAB L100.1600 27.0-32.0 pg Low MCH 15.8 LAB L100.1700 32-36 g/gl Low MCHC 25.3 LAB L100.1810 11.6-14.6 % High RDW CV 20.4 LAB L100.1820 35.1-43.9 fl High RDW SD 46.7 LAB L100.1900 150-450 K/mm3 Normal PLT 258 LAB L100.2000 6.2-12.0 fl Normal MPV 9.1 LAB L100.2100 47-70 % Normal NEUT% 67.1 LAB L100.2200 19-41 % Normal LY% 23.8 LAB L100.2300 0-10 % Normal MONO% 7.1 LAB L100.2400 0-5 % Normal EO% 1.6 LAB L100.2500 0-1 % Normal BASO% 0.4 LAB L100.2550 0.0-0.9 % Normal IM GRAN % 0.000 Result Comment: IG% - Immature Granulocytes (promyelocytes, myelocytes and metamyelocytes) > 1% indicates that a LEFT SHIFT is Present. LAB L100.2620 2.0-7.7 X10 3/uL Normal Absolute Neut 3.0 LAB L100.2720 0.83-4.51 X10 3/ul Normal Absolute Lymph 1.07 LAB L100.4500 Normal SMEAR COMMENT SCANNED Result Comment: 1+ ANISOCYTOSIS 2+ HYPOCHROMASIA Performed By: #### L100.0100 #### [facility] [address] [facility] [place], [address] ,SERUM,HCG QUALI. Collected: Status: F Source: [place] 01/11/2018 4:[address] [facility] REPOSITORY TYPE CODE TESTS RESULT OUT OF REFERENCE UNITS RANGE LAB L700.7000 0-9 Nonpreg Negative Normal HCGSQUAL NEGATIVE LAB L700.6700 =>Qualitative mIU/mL Normal HCG Qual < 1 triggr Performed By: #### L700.6800 #### [facility] [address] [facility] [place], [address] CHEST 1 VIEW Observed: 01/11/2018 Status: F Source: [place] (PORTABLE) 3:[address] [facility] REPOSITORY [facility] Imaging Services [address] [place] [address] Chest 1 View (Portable) MR#: [id number] Acct: [id number] Name: MANISHA MARCUS I Rep #: [id number] : 1975 F 42 From: Odilon Olvera MD PCP: OUT OF TOWN DOCTOR Status: PRE ER Study: Chest 1 View (Portable) Date of Exam: 01/11/18 Exam# [id number] Ordering Dr: Brad Borja MD STUDY: X-RAY CHEST REASON FOR EXAM: Female, 42 years old. Palpitations TECHNIQUE: Single AP portable view of the chest. COMPARISON: None. FINDINGS: The lungs are clear and expanded. There is no demonstrated pleural abnormality. Normal size heart. Normal mediastinum and teresa. Normal visualized pulmonary arteries. Normal visualized aortic arch and descending thoracic aorta. Normal visualized thoracic spine. Normal visualized ribs, clavicles, and shoulders. There is no demonstrated abnormality of the visualized soft tissue structures of the upper abdomen. RAD/Chest 1 View (Portable) IMPRESSION: Normal x-ray examination of the chest. Electronically Signed: Asif Olvera MD at 16:17 EDT , Service support , CC: OUT OF TOWN DOCTOR; Brad Borja MD Rice Dryer Mechanic: Signed PELVIC (NON ) Observed: 01/11/2018 Status: F Source: [place] 2:[address] [facility] REPOSITORY [facility] Imaging Services [address] [place] [address] Pelvic (Non ) MR#: [id number] Acct: [id number] Name: MANISHA MARCUS I Rep #: [id number] : 1975 F 42 From: Odilon Olvera MD PCP: OUT OF TOWN DOCTOR Status: REG CLI Study: Pelvic (Non ) Date of Exam: 01/11/18 Exam# [id number] Ordering Dr: Magaly Villarreal MD STUDY: ULTRASOUND OF THE FEMALE PELVIS - COMPLETE REASON FOR EXAM: Female, 42 years old. Bleeding LMP: 12/23/2017 TECHNIQUE: Transabdominal TECHNICAL QUALITY: Adequate. COMPARISON: None. FINDINGS: The uterus is anteverted and is in a midline position. The uterus measures 12.7 cm. Normal uterine cervix. The endometrium measures 4 mm in thickness, and is hyperechoic. There is no demonstrated endometrial mass. There is no demonstrated myometrial mass. I.U.D. - The patient does not have an I.U.D. The right ovary is visualized. The right ovary measures 2.3 x 1.5 x 1.4 cm. There is no right ovarian cyst or ovarian mass. There is no visualized right adnexal mass or complex lesion. There is normal arterial and normal venous vascularity. The left ovary is visualized. The left ovary measures 3.7 x 2.0 x 1.7 cm. There is no left ovarian cyst or ovarian mass. There is no visualized left adnexal mass or complex lesion. There is normal arterial and normal venous vascularity. There is no fluid in the cul-de-sac. The bladder is sonographically normal US/Pelvic (Non ) IMPRESSION: Normal female pelvis. Electronically Signed: Asif Olvera MD at 15:19 EDT , Service support , CC: OUT OF TOWN DOCTOR; Magaly Villarreal MD Rice Dryer Mechanic: Signed SURGERY VISIT REPORT Observed: 01/11/2018 Status: F Source: [place] 1:[address] [facility] REPOSITORY [facility] [address] [place] [address] [address] [place] [address] OFFICE VISIT Date of Service: 01/11/18 MR#: [id number] Acct: [id number] Name: MANISHA MARCUS I Rep #: [id number] : 1975 Provider: Iris Sinclair MD Age/Sex: 42/F Location: [facility] Status: Signed Intake Vital Signs01/11/18 Height 5 ft 6 in 01/11/18 Weight: 195 lb Intake Visit Reasons: Rt Breast Fibroadenoma US [facility] 01/06 Chief Complaint: breast lump, unexplained weight loss Terrazzo Finisher Required: No Is patient in pain?: Yes (Right breast) Pain scale (1-10): 5 Allergies ciprofloxacin [From Cipro] Allergy (Verified 01/11/18 13:37) Rash codeine Allergy (Verified 01/11/18 13:37) Anaphylaxis lamotrigine [From Lamictal] Allergy (Verified 01/11/18 13:37) Rash latex Allergy (Verified 01/11/18 13:37) Rash Medications Acetaminophen [Tylenol Extra Strength] 500 mg PO Q8H PRN PRN 09/30/16 [History Confirmed 01/11/18] Duloxetine Hcl [Cymbalta] 60 mg PO DAILY 09/30/16 [History Confirmed 01/11/18] Metoprolol Succinate [Toprol Xl] 100 mg PO BID 09/30/16 [History Confirmed 01/11/18] dulaglutide 1.5 mg/0.5 mL subcutaneous pen injector 0.75 mg SC QWEEK 01/04/18 [History Confirmed 01/11/18] sitagliptin 50 mg tablet 50 mg PO DAILY 01/04/18 [History Confirmed 01/11/18] aspirin 81 mg tablet,delayed release 81 mg PO DAILY 01/11/18 [History Confirmed 01/11/18] mirtazapine 15 mg tablet 30 mg PO QHS tab 01/11/18 [History Confirmed 01/11/18] PFSH Medical History Bipolar disorder (Acute) hypertension (Acute) Diabetes (Acute) Surgical History Hx of tonsillectomy (Acute) Hx of gastric bypass (Acute) History of ankle surgery (Acute) Hx of appendectomy (Acute) Hx of breast reduction, elective (Acute) delivery delivered (Acute) Family History Mother No problems noted. 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 Right breast patient does have fibroglandular tissue especially in the medial aspect of her breast however unable to discretely fill the subcutaneous mass seen on ultrasound due to her fibroglandular tissue. Patient states she has burning/itching area however this does not correspond to the area of the subcutaneous mass and is actually more medial almost overlying the sternum. No supraclavicular or axillary adenopathy appreciated bilaterally Cardio Rate: tachycardic Rhythm: regular rhythm GI Inspection: non-distended Palpation: soft, nontender, no guarding Assessment AND Plan Problems 1. Mass of right breast N63.10 2. Tachycardia R00.0 Plan I have discussed above with the patient. I have recommended ultrasound guided needle core breast biopsy with vacuum assistance. I have described the procedure to the patient. A marker clip will be placed to identify the location. Patient has been counseled to the risks/benefits of the procedure. I have explained the risks of the surgery, including but not limited to: infection, bleeding, injury to any blood vessels/nerves, scar tissue, missing the lesion, further surgery, etc. - the patient understands and agrees to proceed. I have answered all of the patient's questions to her satisfaction and she has no further questions. Patient has tried to get into her PCP group but was unable to get an appointment until January otherwise she was told by her PCP to go to the ER; however patient does have a high deductible. Will refer the patient to an urgent care to see if they are able to do anymore or investigate her tachycardia. Did discuss with patient that ultimately they may end up referring her to the ER as well. Patient denies any symptoms currently but does occasionally complain of shortness of breath which she was initially attributing to her right breast mass however this is only 1.3 cm x 0.9 cm x 0.5 cm would not be causing any shortness of breath. Iris Sinclair M.D. Pager: [phone] [facility] [address] [place] [address], [address] [place] [address] Office: [phone] Plan Detail Follow Up Patient will schedule breast biopsy in office after following up with urgent care for her tachycardia Coding Level of Care Code Off vis,new,level 3 Diagnoses Mass of right breast N63.10 Tachycardia R00.0 01/11/18 3356 <Electronically signed by Iris Sinclair MD> Date Iris Sinclair MD [facility] Signature: Date (if applicable) CC: Magaly Villarreal MD BREAST LIMITED Observed: 01/06/2018 Status: F Source: [place] UNILATERAL 9:[address] [facility] REPOSITORY [facility] Imaging Services [address] [place] [address] Breast Limited Unilateral MR#: [id number] Acct: [id number] Name: MANISHA MARCUS I Rep #: [id number] : 1975 F 42 From: Dwight Hendrix MD PCP: Care Physician, No Primary Status: REG CLI Study: Breast Limited Unilateral Date of Exam: 01/06/18 Exam# [id number] Ordering Dr: Magaly Villarreal MD STUDY: ULTRASOUND BREAST - RIGHT REASON FOR EXAM: Female, 42 years old. Six-week history of a right breast lump. TECHNIQUE: Axial and longitudinal images of the RIGHT breast were performed with a high resolution ultrasound transducer. COMPARISON: Comparison is made with prior mammogram done earlier in the day. FINDINGS: RIGHT Breast: There is a 1.3 cm x 0.9 cm x 0.5 cm well defined hypoechoic solid nodule at the 4:00 position of the breast at 3 cm from the nipple. This most likely represents a fibroadenoma. Tissue diagnosis is recommended. US/Breast Limited Unilateral IMPRESSION: 1.3 cm x 0.9 cm x 0.5 cm well-defined hypoechoic solid nodule at the 4:00 position of the breast at 3 cm from the nipple. This most likely represents a fibroadenoma. Tissue diagnosis is recommended. ASSESSMENT CATEGORY: BIRADS Category 4: Suspicious - Biopsy Should Be Considered. A letter regarding these results will be sent to the patient by the facility within 30 days. Electronically Signed: Dwight Hendrix MD at 10:41 EDT Tel [phone], Service support , CC: No Primary Care Physician; Magaly Villarreal MD Rice Dryer Mechanic: Signed DIAG MAMM W/CAD, Observed: 01/06/2018 Status: F Source: [place] BILAT 9:[address] [facility] REPOSITORY [facility] Imaging Services [address] [place] [address] DIAG MAMM W/CAD, BILAT MR#: [id number] Acct: [id number] Name: MANISHA MARCUS I Rep #: [id number] : 1975 F 42 From: Dwight Hendrix MD PCP: Care Physician, No Primary Status: REG CLI Study: DIAG MAMM W/CAD, BILAT Date of Exam: 01/06/18 Exam# [id number] Ordering Dr: Magaly Villarreal MD MAMMOGRAPHY - BILATERAL DIAGNOSTIC REASON FOR EXAM: Female, 42 years old. Six-week history of right breast lump. History of bilateral breast reduction surgery. PERTINENT HISTORY: Non-contributory. TECHNIQUE: Digital bilateral breast malcom (3D mammographic acquisition) in the CC and MLO projections. 2-D mediolateral oblique (MLO) and craniocaudad (CC) views of both breasts were obtained. CAD: Full Field Digital Mammography with Computer Added Detection was performed. COMPARISON: No comparison mammograms available at this time. If any prior films become available, an addendum to this report can be generated. FINDINGS: Breast Composition: There are scattered areas of fibroglandular density. There are no dominant masses or suspicious calcifications. Small benign-appearing bilateral axillary lymph nodes. No other significant abnormalities are identified. BI/DIAG MAMM W/CAD, BILAT IMPRESSION: With the patient's history of a palpable abnormality in the inferior medial aspect of the right breast, correlation with ultrasound is recommended. ASSESSMENT CATEGORY: BIRADS Category 0: Incomplete. Need additional imaging evaluation. A letter regarding these results will be sent to the patient by the facility within 30 days. Approximately 10% of breast cancers are not detected by mammography. A normal mammogram should not delay biopsy of a clinically suspicious abnormality. Electronically Signed: Dwight Hendrix MD at 13:10 EDT Tel [phone], Service support , CC: No Primary Care Physician; Magaly Villarreal MD Rice Dryer Mechanic: Signed [facility] OFFICE VISIT Observed: 01/05/2018 Status: F Source: [place] REPORT 1:16 PM [facility] [address] [place] [address] OFFICE VISIT Date of Service: 01/04/18 MR#: [id number] Acct: [id number] Name: MANISHA MARCUS I Rep #: [id number] : 1975 Provider: Magaly Villarreal MD Age/Sex: 42/F [place] [facility] [place]: Signed Intake Vital Signs01/04/18 Height 5 ft 6 in 01/04/18 Weight: 206 lb 4 oz 01/04/18 Body Mass Index (BMI) 33.3 01/04/18 Blood Pressure 132/68 Intake Visit Reasons: LUMP IN RIGHT BREAST, WEIGHT LOSS Chief Complaint: breast lump, unexplained weight loss Terrazzo Finisher Required: No Is patient in pain?: No Allergies ciprofloxacin [From Cipro] Allergy (Verified 01/04/18 14:10) Rash codeine Allergy (Verified 01/04/18 14:10) Anaphylaxis lamotrigine [From Lamictal] Allergy (Verified 01/04/18 14:10) Rash latex Allergy (Verified 01/04/18 14:10) Rash Medications Acetaminophen [Tylenol Extra Strength] 500 mg PO Q8H PRN PRN 09/30/16 [History Confirmed 01/04/18] Duloxetine Hcl [Cymbalta] 60 mg PO DAILY 09/30/16 [History Confirmed 01/04/18] Metoprolol Succinate [Toprol Xl] 100 mg PO BID 09/30/16 [History Confirmed 01/04/18] Mirtazapine [Remeron] 15 mg PO QHS 10/29/16 [History Confirmed 01/04/18] dulaglutide 1.5 mg/0.5 mL subcutaneous pen injector 0.75 mg SC QWEEK 01/04/18 [History Confirmed 01/04/18] sitagliptin 50 mg tablet 50 mg PO DAILY 01/04/18 [History Confirmed 01/04/18] Is last menstrual period known: No Post menopausal: No Patient : No : No PFSH Medical History Bipolar disorder (Acute) Diabetes (Acute) hypertension (Acute) Surgical History delivery delivered (Acute) History of ankle surgery (Acute) Hx of appendectomy (Acute) Hx of breast reduction, elective (Acute) Family History Mother No problems noted. 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 s he hasn't been feeling well and has been having GI complaints of intermittent diarrhea and constipation. She has seen her PCP and discussed this with him. she denies any vaginal bleeding or abnormalities. she has also had heavier menses lately and some dysmenorrhea. Pregancy History 6 Elective abortions Hx Para 3 Spontaneous abortions Past Pregnancies Del. DateName GA/Weeks Outcome Route Bth WeighInfant GeLabor LgtAnesthesiDel LocatProvider FOB t n h a n ROS Const Constitutional: Reports weight loss and poor appetite GI GI: Reports as per HPI : Reports system reviewed and no additional complaints, except as docu Exam Const General: cooperative, healthy appearing, comfortable, no acute distress, well developed Nutritional Appearance: average body habitus Orientation: alert [facility] Head: normal to inspection, normocephalic Ears: hearing grossly normal bilaterally, external ears normal Nose: external nose normal, nares normal Face and sinus: normal facial exam Neck Neck: normal visual inspection, trachea midline, no lymphadenopathy Thyroid: thyroid normal Chest Chest palpation AND inspection: normal inspection of the chest Breast inspection: normal inspection of the breasts, normal inspection of the axillae Breast palpation: normal palpation of the axillae, no axillary lymphadenopathy, abnormal palpation of the breast (right 3 o clock increased density. scars from reduction present) Resp Effort AND Inspection: normal respiratory effort GI Inspection: normal to inspection, non-distended Palpation: soft, no hepatosplenomegaly Musc Other: gross motor intact no deficits, full bilateral strength Skin General: no rashes or lesions noted Neuro General: alert, awake, no focal motor deficits, moves all extremities Motor: muscle tone normal throughout Extrem General: normal to inspection, no pedal edema Psych Appearance: grossly normal Mental Status: mental status grossly normal Affect: normal affect Speech and Movement: speech and movement normal Assessment AND Plan Problems 1. Abnormal uterine bleeding N93.9 2. Lump of right breast N63.10 3. Weight loss R63.4 Plan recommend workup and fu to discuss treatment of AUB Orders Orders: Coding Level of Care Code Off vis,est,level 4 Diagnoses Abnormal uterine bleeding N93.9 Lump of right breast N63.10 Weight loss R63.4 01/05/18 1316 <Electronically signed by Magaly Villarreal MD> Date Magaly Villarreal MD Cosigner Signature: Date (if applicable) CC: LUMBAR COMPLETE Observed: 12/21/2017 Status: F Source: [place] 12:[address] [facility] REPOSITORY [place] [id number] Name: MANISHA MARCUS I Phys: PATRICIA DE LA ROSA C.N.P.: [birth year] Age: 42 Sex: F Acct: [id number] Loc: RAD Exam Date: 12/21/17 Status: REG CLI Radiology No.: [id number] Unit Number: [id number] Exam # Type/Exam [id number] RAD / LUMBAR COMPLETE LUMBOSACRAL SPINE AP, lateral, and oblique images: Clinical Statement: Chronic low back pain for 6 months. Comparison Study: None. Five lumbar-type vertebral bodies are present and normally aligned. The vertebral bodies and disc spaces are maintained. Posterior elements including the pedicles are intact. Sacrum and sacroiliac joints are normal as visualized. IMPRESSION: [] Normal study lumbar spine. Professional interpretation provided by [facility] [place], [place] on [place] LS15. Thank you for this referral. <<Signature on File>> Reported By: MIRA ZAMBRANO D.O. Signed In NovaPro By: MIRA ZAMBRANO D.O. << Signature on File>> Reported By: MIRA ZAMBRANO D.O. Signed By: MIRA ZAMBRANO D.O. Tests performed at: [address] [address] SHOULDER MIN 2 VIEW Observed: 12/21/2017 Status: F Source: [place] 12:[address] [address] Name: MANISHA MARCUS I Phys: PATRICIA DE LA ROSA C.N.P. : [birth year] Age: 42 Sex: F Acct: [id number] Loc: RAD Exam Date: 12/21/17 Status: REG CLI Radiology No.: [id number] Unit Number: [id number] Exam # Type/Exam [id number] RAD / SHOULDER MIN 2 VIEW RT RIGHT SHOULDER AP images with internal and external rotation: Reason for Examination: Pain following injury. Comparison Study: None. Examination of the RIGHT shoulder reveals the osseous structures to be intact. The articular surfaces are smooth and the joint space is well maintained. The glenohumeral relationships are normal. There is no evidence of soft tissue calcification. IMPRESSION: Negative RIGHT shoulder examination. Professional interpretation provided by [facility] [place], [place] on RAC-PC-66. Thank you for this referral. <<Signature on File>> Reported By: MIRA ZMABRANO D.O. Signed In NovaPro By: MIRA ZAMBRANO D.O. << Signature on File>> Reported By: MIRA ZAMBRANO D.O. Signed By: MIRA ZAMBRANO D.O. Tests performed at: [place] [address] ALLERGIES ALLERGIES DATE TYPE / CODE NAME / CODE REACTION SEVERITY SOURCE 05/19/2018 Drug codeine/F00 Anaphylaxis Unknown [place] [facility] Allergy/4160 1238790([facility] 08759(SNOMED ORM) Repository CT) 05/19/2018 Drug dexamethaso Other Unknown [place] [facility] Allergy/4160 ne/[id number] Hospital 62417(SNOMED 74(RXNORM) Repository CT) 05/19/2018 Drug ciprofloxac Rash Unknown [place] [facility] Allergy/4160 in/[id number] Hospital 56308(SNOMED 82(RXNORM) Repository CT) 05/19/2018 Drug lamotrigine Rash Unknown [place] [facility] Allergy/4160 /[id number] Hospital 95167(SNOMED (RXNORM) Repository CT) 05/19/2018 Drug latex/F0060 Rash Unknown [facility] All[facility]/4160 57753([facility] Hospital 46197(SNOMED M) Repository CT) ENCOUNTERS ENCOUNTERS ADMIT/DISCHARGE ACCOUNT ADMITTING ENCOUNTER LOCATION SOURCE NUMBER CLASS 05/19/2018 [id number] Ambulatory [place] Alex[place] 3 [facility] ing:LABSPEC Repository 05/19/2018/ [id number] Ambulatory BMSBuilding:B [place] 9 5 [place] [place] 05/06/2018/ [id number] ANGEL DIETRICH [facility] [place] oom: AMOV4 [facility] Repository 04/28/2018 [id number] Ambulatory [place] 2 [facility] ing:PSN Repository 04/13/2018/ [id number] Ambulatory BMSBuilding:B [place] 3 [place] [place]ository 03/15/2018/ [id number] Ambulatory BMSBuilding:B [place] 9 MS.[facility] Hospital Repository 03/01/2018 [id number] Ambulatory [place]ia Alexia 4 [facility] ing:PAVLAB Repository 03/01/2018/ [id number] Ambulatory BMSBuilding:B [place] 8 3 MS.[facility] Hospital Repository 02/25/2018 [id number] Ambulatory [place] 1 [facility] ing:HPRAD Repository 02/25/2018/ [id number] Ambulatory BMSBuilding:B [place] 8 0 MS.[facility] Repository 02/22/2018 [id number] Ambulatory BMSBuilding:B [place] 1 MS.CF.[facility] Hospital Repository 02/22/2018 [id number] Ambulatory [place] 8 [facility] Hospital ing:CVS Repository 02/15/2018/ [id number] Ambulatory BMSBuilding:B [place] 8 MS.[facility] Hospital Repository 02/15/2018 [id number] Ambulatory [place] 7 [facility] Hospital ing:OPUS Repository 02/09/2018/ [id number] Ambulatory BMSBuilding:B [place] 8 5 [place] Repository 02/02/2018 [id number] Ambulatory Alexia Alexia 9 [facility] Hospital ing:LABSPEC Repository 02/02/2018 [id number] Ambulatory Alexia Alexia 8 [facility] Hospital ing:PAVLAB Repository 02/02/2018/ [id number] Ambulatory BMSBuilding:B [place] 9 MS.[facility] Hospital Repository 01/29/2018 [id number] Ambulatory BMSBuilding:B [place] 6 MS.CF.[facility] Hospital Repository 01/28/2018/ [id number] Ambulatory [place] 0 [facility] Hospital ing:SDCRoom: Repository MS218 01/28/2018 [id number] Ambulatory BMSBuilding:B [place] 7 MS.CF.[facility] Hospital Repository 01/25/2018 [id number] Ambulatory [place] 3 [facility] Hospital ing:LABSPEC Repository 01/25/2018/ [id number] Ambulatory BMSBuilding:B [place] 8 4 MS.[facility] Hospital Repository 01/20/2018 [id number] Ambulatory BMSBuilding:B [place] 4 MS.[facility] Hospital Repository 01/20/2018/ [id number] Ambulatory [place] 8 3 [facility] ing:ENRoom: Repository AC12 01/20/2018/ [id number] Ambulatory BMSBuilding:B [place] 8 2 MS.CF.[facility] Repository 01/19/2018/ [id number] Ambulatory BMSBuilding:B [place] 8 9 [facility] Repository 01/16/2018 [id number] Ambulatory [place] 5 [facility] ing:LAB Repository 01/11/2018/ [id number] [place], Ambulatory [place] 8 7 [facility] [place]:PCURoom: Repository VHN437Irh: 1 01/11/2018 [id number] [place], Ambulatory BMSBuilding:B [place] 6 [place].CF.[facility] Repository 01/11/2018 [id number] [place], Ambulatory BMSBuilding:B [place] 3 [place] MS.[facility] Repository 01/11/2018 [id number] [place], Ambulatory BMSBuilding:B [place] 0 [place].CF.[facility] Repository 01/11/2018 [id number] [place], Ambulatory BMSBuilding:B [place].CF.[facility] Repository 01/11/2018/ [id number] Ambulatory BMSBuilding:W [place] 8 9 [facility] Repository 01/11/2018 [id number] [place], Ambulatory BMSBuilding:B [place] 6 [place].CF.[facility] Repository 01/11/2018 [id number] Ambulatory BMSBuilding:W [place] 6 [facility] Repository 01/11/2018 [id number] Ambulatory BMSBuilding:B [place] 2 MS.[facility] Repository 01/11/2018 [id number] Ambulatory [place] 0 [facility] Hospital ing:US Repository 01/11/2018/ [id number] Ambulatory BMSBuilding:B [place] 8 5 [facility] Repository 01/06/2018 [id number] Ambulatory Alexia Alexia 0 [facility] Hospital ing:OPBI Repository 01/04/2018/ [id number] Ambulatory BMSBuilding:B [place] 8 [facility] Repository 12/21/2017 [id number] Ambulatory UNIBuilding:R [place] 2 [facility] Hospital Repository 09/22/2017 [id number] Ambulatory BMSBuilding:B [place] 0 [facility] Repository 06/02/2017 [id number] Ambulatory UNIBuilding:R [address] Repository PAYERS PAYERS ENCOUNTER GUARANTOR PAYER SUBSCRIBER SOURCE 05/19/2018 MANISHA I MILLERPO Primary MANISHA I MILLERDOB: [place] BOX Insurance:PeeriusNAmyWebRoom [id number] Number: [facility] [address]Gze: 330 [id number] Repository [phone] () Date:5959-51-42MX [address], [place] [address]TV: 05/19/2018 Secondary NOT GIVENUNK [place] Insurance:SELF PAY [facility] Number: Effective Repository Date:2018-05-19 05/19/2018 MANISHA I MILLERPO Primary MANISHA I MILLERDOB: [place] [facility] Insurance:PeeriusNAmyWebRoom [id number] Number: Hospital [address]Bfb: (330 [id number] Repository [phone] () Date:4455-02-98QS [address]BCMXSYCY[place], [place] [address]MN: 05/19/2018 Secondary NOT GIVENUNK [place] Insurance:SELF PAY [facility] Number: Effective Repository Date:2018-05-19 04/28/2018 MANISHA I MILLERPO Primary MANISHA I MILLERDOB: [place] Insurance:Peerius[place] [id number] Number: [facility] [address]Ikv: (330 [id number] Repository [phone] () Date:8184-50-38IS [address]THVTIFITQIZCASCADE, [place] [address]NB: 04/28/2018 Secondary NOT GIVENUNK [place] Insurance:SELF PAY [facility] Number: Effective Repository Date:2018-03-25 04/13/2018 MANISHA I MILLERPO Primary MANISHA I MILLERDOB: [place] [address]OX Insurance:CIGNAPolicy [id number] Number: Hospital [id number]: (330 [id number] Repository [phone] () Date:1868-28-47CS [address]DEWXGWQPULCASCADE, [place] [address]IG: 04/13/2018 Secondary NOT GIVENUNK [place] Insurance:SELF PAY [facility] Hospital Number: Effective Repository Date:2018-04-08 03/15/2018 MANISHA I MILLERPO Primary MANISHA I MILLERDOB: [place] Insurance:CIGNAPolicy [id number] [place] Number: Hospital [address]Qsy: (330 [id number] Repository [phone] () Date:3672-13-10YG [address]CIXYYTQPWHP, [place] [address]LR: 03/15/2018 Secondary NOT GIVENUNK [place] Insurance:SELF PAY [facility] Hospital Number: Effective Repository Date:2018-03-15 03/01/2018 MANISHA I MILLERPO Primary MANISHA I MILLERDOB: [place] Insurance:CIGNAPolicy [id number] [place] Number: Hospital [address]Xgw: (330 [id number] Repository [phone] () Date:1515-95-26YP [address]WCOFWOCFWTAC[place], [place] [address]MT: 03/01/2018 Secondary NOT GIVENUNK [place] Insurance:SELF PAY [facility] Hospital Number: Effective Repository Date:2018-03-01 03/01/2018 MANISHA I MILLERPO Primary MANISHA I MILLERDOB: [place] Insurance:CIGNAPolicy [id number] [place] Number: [facility] [address]Lhz: (330 [id number] Repository [phone] () Date:2480-74-61GB [address]AMYHIXUBPPZ, [place] [address]NA: 03/01/2018 Secondary NOT GIVENUNK [place] Insurance:SELF PAY [facility] Hospital Number: Effective Repository Date:2018-03-01 02/25/2018 MANISHA I MILLERPO Primary MANISHA I MILLERDOB: [place] Insurance:CIGNAPolicy [id number] Number: [facility] [address]Onh: (330 [id number] Repository [phone] () Date:3877-34-68EJ [address]HBGVEZBYCPS, [place] [address]AR: 02/25/2018 Secondary NOT GIVENUNK [place] Insurance:SELF PAY [facility] Hospital Number: Effective Repository Date:2018-02-25 02/25/2018 MANISHA I MILLERPO Primary MANISHA I MILLERDOB: [place] Insurance:PeeriusNAPolPillGuardy [id number] [place] Number: [facility] [address]Lbo: 330 [id number] Repository [phone] () Date:0925-51-35AN [address]WUIIUVEXTTH, [place] [address]JT: 02/25/2018 Secondary NOT GIVENUNK [place] Insurance:SELF PAY [facility] Hospital Number: Effective Repository Date:2018-02-25 02/22/2018 MANISHA I MILLERPO Primary MANISHA I MILLERDOB: [place] Insurance:PeeriusNAPolPillGuardy [id number] [place] Number: [facility] [id number]: (330 [id number] Repository [phone] () Date:1845-58-59ET [address]KLLEYPCCJGX, [place] [address]PI: 02/22/2018 Secondary NOT GIVENUNK [place] Insurance:SELF PAY [facility] Hospital Number: Effective Repository Date:2018-02-22 02/22/2018 MANISHA I MILLERPO Primary MANISHA I MILLERDOB: [place] [address] Insurance:CIGNAPolPillGuardy [id number] [place] Number: [facility] [address]Owr: 330 [id number] Repository [phone] () Date:1768-25-03AN [address] [address]CI: 02/22/2018 Secondary NOT GIVENUNK [place] Insurance:SELF PAY [facility] Hospital Number: Effective Repository Date:2018-02-09 02/15/2018 MANISHA I MILLERPO Primary MANISHA I MILLERDOB: [place] Insurance:CIGNAPolicy [id number] [place] Number: [facility] [address]Cug: 330 [id number] Repository [phone] () Date:8796-94-55EW [address] [address]RW: 02/15/2018 Secondary NOT GIVENUNK [place] Insurance:SELF PAY [facility] Hospital Number: Effective Repository Date:2018-02-15 02/15/2018 MANISHA I MILLERPO Primary MANISHA I MILLERDOB: [place] Insurance:CIGNAPolicy [id number] [place] Number: [facility] [id number]: 330 [id number] Repository [phone] () Date:3412-86-66FN [address] [address]TA: 02/15/2018 Secondary NOT GIVENUNK [place] Insurance:SELF PAY [facility] Hospital Number: Effective Repository Date:2018-02-02 02/09/2018 MANISHA I MILLERPO Primary MANISHA I MILLERDOB: [place] Insurance:CIGNAPolicy [id number] [place] Number: [facility] [address]Dxk: 330 [id number] Repository [phone] () Date:7910-20-72XR [address] [address]XG: 02/09/2018 Secondary NOT GIVENUNK [place] Insurance:SELF PAY [facility] Hospital Number: Effective Repository Date:2018-02-09 02/02/2018 MANISHA I MILLERPO Primary MANISHA I MILLERDOB: [place] Insurance:CIGNAPolicy [id number] Number: Hospital [id number]: (330 [id number] Repository [phone] () Date:2661-41-51EX [address] [address]DO: 02/02/2018 Secondary NOT GIVENUNK [place] Insurance:SELF PAY [facility] Hospital Number: Effective Repository Date:2018-02-02 02/02/2018 MANISHA I MILLERPO Primary MANISHA I MILLERDOB: [place] Insurance:CIGNAPolicy [id number] [place] Number: Hospital [address]Bhp: (330 [id number] Repository [phone] () Date:7215-14-26PF [address] [address]XT: 02/02/2018 Secondary NOT GIVENUNK [place] Insurance:SELF PAY Community [facility] Hospital Number: Effective Repository Date:2018-02-02 02/02/2018 MANISHA I MILLERPO Primary MANISHA I MILLERDOB: [place] Insurance:CIGNAPolicy [id number] [place] Number: Hospital [address]Vtf: (330 [id number] Repository [phone] () Date:5398-36-25HT [address] [address]VB: 02/02/2018 Secondary NOT GIVENUNK [place] Insurance:SELF PAY Community [facility] Hospital Number: Effective Repository Date:2018-02-02 01/29/2018 MANISHA I MILLERPO Primary MANISHA I MILLERDOB: [place] B[place] Insurance:CIGNAPolicy [id number] [place] Number: Hospital [address]Scc: (330 [id number] Repository [phone] () Date:0033-77-71XW [address] [address]HH: 01/29/2018 Secondary NOT GIVENUNK [place] Insurance:SELF PAY Community [facility] Hospital Number: Effective Repository Date:2018-01-29 01/28/2018 MANISHA I MILLERPO Primary MANISHA I MILLERDOB: [place] B[place] Insurance:CIGNAPolicy [id number] Number: Hospital [address]Sxk: 330 [id number] Repository [phone] () Date:1012-90-27TU [address] [address]BM: 01/28/2018 Secondary NOT GIVENUNK [place] Insurance:SELF PAY Community [facility] Hospital Number: Effective Repository Date:2018-01-21 01/28/2018 MANISHA MARCUS IPO Primary MANISHA MARCUS IDOB: [place] [address] Insurance:CIGNAPolicy [id number] Number: Hospital [address]Eic: 330 [id number] Repository [phone] () Date:9116-02-59VK [address] [address]XL: 01/28/2018 Secondary NOT GIVENUNK [place] Insurance:SELF PAY Community [facility] Hospital Number: Effective Repository Date:2018-01-28 01/25/2018 MANISHA MARCUS IPO Primary MANISHA MARCUS IDOB: [place] [address] Insurance:CIGNAPolicy [id number] [place] Number: Hospital [address]Glz: (330 [id number] Repository [phone] () Date:9324-60-54PT [address] [address]FJ: 01/25/2018 Secondary NOT GIVENUNK [place] Insurance:SELF PAY Community [facility] Hospital Number: Effective Repository Date:2018-01-25 01/25/2018 MANISHA MARCUS IPO Primary MANISHA MARCUS IDOB: [place] [address] Insurance:CIGNAPolicy [id number] Number: Hospital [address]Tmt: 330 [id number] Repository [phone] () Date:0131-79-94SX [address] [address]KZ: 01/25/2018 Secondary NOT GIVENUNK [place] Insurance:SELF PAY Community [facility] Hospital Number: Effective Repository Date:2018-01-25 01/20/2018 MANISHA MARCUS IPO Primary MANISHA MARCUS IDOB: [place] [address] Insurance:ANTHEMPolic [id number] [address] y Number: [facility] [address]Aru: 330 [id number] Repository [phone] (HP) Date:1523-16-38HW [address]EFZNHLF, [place] [address]OE: 01/20/2018 Secondary NOT GIVENUNK [place] Insurance:SELF PAY Community [facility] Hospital Number: Effective Repository Date:2017-12-31 01/20/2018 MANISHA MARCUS IPO Primary MANISHA MARCUS IDOB: [place] [address] Insurance:CIGNAPolicy [id number] [address] Number: [facility] [address]Cqm: 330 [id number] Repository [phone] () Date:4733-45-19LL [address]BTCQUGHUKPI, [place] [address]LR: 01/20/2018 Secondary NOT GIVENUNK [place] Insurance:SELF PAY [facility] Hospital Number: Effective Repository Date:2018-01-13 01/20/2018 MANISHA I MILLERPO Primary MANISHA I MILLERDOB: [place] [address] Insurance:CIGNAPolicy [id number] [address] Number: Hospital [address]Olo: 330 [id number] Repository [phone] () Date:7565-92-51HM [address]VTNXPUGJOXZ, [place] [address]LT: 01/20/2018 Secondary NOT GIVENUNK [place] Insurance:SELF PAY Community [facility] Hospital Number: Effective Repository Date:2018-01-20 01/19/2018 MANISHA MARCUS IPO Primary MANISHA MARCUS IDOB: [place] [address] Insurance:CIGNAPolicy [id number] [address] Number: [facility] [address]Ngp: 330 [id number] Repository [phone] (HP) Date:7743-61-98SZ [address]SEZYTPMSJOJ, [place] [address]KX: 01/19/2018 Secondary NOT GIVENUNK [place] Insurance:SELF PAY Community [facility] Hospital Number: Effective Repository Date:2018-01-19 01/16/2018 MANISHA MARCUS IPO Primary MANISHA MARCUS IDOB: [place] [address] Insurance:CIGNAPolicy [id number] [address] Number: [facility] [address]Rij: (330 [id number] Repository [phone] () Date:0592-37-50OB [address]TLTWDYVOSRU, [place] [address]WQ: 01/16/2018 Secondary NOT GIVENUNK [place] Insurance:SELF PAY Community [facility] Hospital Number: Effective Repository Date:2018-01-16 01/11/2018 MANISHA MARCUS IPO Primary MANISHA MARCUS IDOB: [place] [address] Insurance:CIGNAPolicy [id number] [address] Number: [facility] [address]Fea: (330 [id number] Repository [phone] () Date:4024-41-88SY [address]LLLUXWVALJB, [place] [address]RX: 01/11/2018 Secondary NOT GIVENUNK [place] Insurance:SELF PAY Community [facility] Hospital Number: Effective Repository Date:2018-01-11 01/11/2018 MANISHA MARCUS IPO Primary MANISHA MARCUS IDOB: [place] [address] Insurance:CIGNAPolicy [id number] [address] Number: [facility] [address]Tbi: (330 [id number] Repository [phone] () Date:3851-41-88UB [address]SPFUMYAXPGM, [place] [address]ED: 01/11/2018 Secondary NOT GIVENUNK [place] Insurance:SELF PAY Community [facility] Hospital Number: Effective Repository Date:2018-01-11 01/11/2018 MANISHA MARCUS IPO Primary MANISHA MARCUS IDOB: [place] [address] Insurance:CIGNAPolicy [id number] [address] Number: [facility] [address]Aow: (330 [id number] Repository [phone] () Date:7444-19-06RT [address]IASBGZEXPQW, [place] [address]XV: 01/11/2018 Secondary NOT GIVENUNK [place] Insurance:SELF PAY Community [facility] Hospital Number: Effective Repository Date:2018-01-11 01/11/2018 MANISHA MARCUS IPO Primary MANISHA MARCUS IDOB: [place] [address] Insurance:CIGNAPolicy [id number] [address] Number: [facility] [id number]: (330 [id number] Repository [phone] () Date:4106-88-79AQ [address]NRNRDOQCLEU, [place] [address]QK: 01/11/2018 Secondary NOT GIVENUNK [place] Insurance:SELF PAY Community [facility] Hospital Number: Effective Repository Date:2018-01-11 01/11/2018 MANISHA MARCUS IPO Primary MANISHA MARCUS IDOB: [place] [address] Insurance:CIGNAPolicy [id number] [address] Number: [facility] [address]Ypc: (330 [id number] Repository [phone] () Date:7043-11-72UJ [address]POZEZXHARSA, [place] [address]DY: 01/11/2018 Secondary NOT GIVENUNK [place] Insurance:SELF PAY Community [facility] Hospital Number: Effective Repository Date:2018-01-11 01/11/2018 MANISHA MARCUS IPO Primary MANISHA MARCUS IDOB: [place] [address] Insurance:CIGNAPolicy [id number] [address] Number: [facility] [address]Yrl: (330 [id number] Repository [phone] () Date:5467-45-63MH [address]WIJHXBQFAHQ, [place] [address]CA: 01/11/2018 Secondary NOT GIVENUNK [place] Insurance:SELF PAY Community [facility] Hospital Number: Effective Repository Date:2018-01-11 01/11/2018 MANISHA MARCUS IPO Primary MANISHA MARCUS IDOB: [place] Insurance:CIGNAPolicy [id number] [address] Number: [facility] [id number]: (330 [id number] Repository [phone] () Date:1506-66-97LW [address]FKAEWSATSQQ, [place] [address]YD: 01/11/2018 Secondary NOT GIVENUNK [place] Insurance:SELF PAY Community [facility] Hospital Number: Effective Repository Date:2018-01-11 01/11/2018 MANISHA I MILLERPO Primary MANISHA I MILLERDOB: [place] [address] Insurance:CIGNAPolicy [id number] [place] Number: [facility] [address]Dlb: (330 [id number] Repository [phone] () Date:5478-31-60NV [address]QLIOJALRCVU, [place] [address]PI: 01/11/2018 Secondary NOT GIVENUNK [place] Insurance:SELF PAY [facility] Hospital Number: Effective Repository Date:2018-01-11 01/11/2018 MANISHA MARCUS IPO Primary MANISHA MARCUS IDOB: [place] [address] Insurance:CIGNAPolicy [id number] [place] Number: [facility] [address]Wib: (330 [id number] Repository [phone] () Date:2037-88-00BB [address]FVGREABRAMN, [place] [address]CM: 01/11/2018 Secondary NOT GIVENUNK [place] Insurance:SELF PAY Community [facility] Hospital Number: Effective Repository Date:2018-01-11 01/11/2018 MANISHA MARCUS IPO Primary MANISHA MARCUS IDOB: [place] [address] Insurance:PeeriusNAPolicy [id number] [place] Number: [facility] [address]Psh: (330 [id number] Repository [phone] () Date:8898-52-01IW [address]FMKCPVMDQXY, [place] [address]XB: 01/11/2018 Secondary NOT GIVENUNK [place] Insurance:SELF PAY Community [facility] Hospital Number: Effective Repository Date:2018-01-06 01/11/2018 MANISHA MARCUS IPO Primary MANISHA MARCUS IDOB: [place] [address] Insurance:CIGNAPolicy [id number] [place] Number: [facility] [address]Kea: 330 [id number] Repository [phone] () Date:6189-64-91SY [address]WPJRWEKNHSL, [place] [address]VB: 01/11/2018 Secondary NOT GIVENUNK [place] Insurance:SELF PAY Community [facility] Hospital Number: Effective Repository Date:2018-01-06 01/06/2018 MANISHA MARCUS IPO Primary MANISHA MARCUS IDOB: [place] [address] Insurance:CIGNAPolicy [id number] Number: [facility] [address]Ejz: 330 [id number] Repository [phone] (HP) Date:7670-38-32EZ [address]YHUCXSIPTAM, [place] [address]HQ: 01/06/2018 Secondary NOT GIVENUNK [place] Insurance:SELF PAY [facility] Number: Effective Repository Date:2018-01-04 01/04/2018 MANISHA MARCUS IPO Primary MANISHA MARCUS IDOB: [place] [address] [facility] [id number] Number: [facility] [address]Atq: 330 [id number] Repository [phone] (HP) Date:9919-95-86RZ [address]WMBTOBMECRN, [place] [address]PH: 01/04/2018 Secondary NOT GIVENUNK [place] Insurance:SELF PAY [facility] Hospital Number: Effective Repository Date:2018-01-04 12/21/2017 MANISHA MAXIMINO MILLERPO Primary MANISHA I MILLERJARON [facility] Insurance:[address] Number: Repository [id number]: 330 [id number] [phone] (HP) Date: [address]UFJDVHMOADQ, [place] [address]OI: 09/22/2017 Manisha Marcus [id number] Primary Manisha Marcus IDOB: [place] [facility] [address] Insurance:ANTHEMPolic [id number] y Number: Hospital [address]Tsk: 330 [id number] Repository [phone] (HP) Date:6140-77-36CI [address]EZYUMOH, [place] [address]KP: 09/22/2017 Secondary NOT GIVENUNK [place] Insurance:SELF PAY [facility] Hospital Number: Effective Repository Date:2017-09-08 06/02/2017 MANISHA MAXIMINO Primary MANISHA I MILLERUNK [facility] Insurance:[facility] ALLPolicy Number: Repository [place] [id number]: 330) Date:2016-04-05 [phone] ()
== END ==
PROVIDERS: Referring Provider Nurse Practitioner Family; Visit Provider Nurse Practitioner Family
DX: R30.0 Dysuria (principal)
CPT/HCPCS: 81001; 87086; 87088